=== PATIENT | female | born 1950 | race Caucasian/White ===

== ENCOUNTER 2020-08-18 06:17 | Outpatient (REF) | payer MEDICARE, BC, SELFPAY ==
[2020-08-18 07:25] LABS: Alanine Aminotransferase 11 U/L (0-31); Albumin Level 4.3 g/dL (3.5-5.0); Alkaline Phosphatase 54 U/L (39-117); Anion Gap 13 (12-20); Aspartate Amino Transferase 14 U/L (5-31); Bilirubin Total 0.3 mg/dL (0.0-1.0); Blood Urea Nitrogen 19 mg/dL (9-16); Calcium 9.6 mg/dL (8.4-10.2); Carbon Dioxide 26 mmol/L (22-29); Chloride 108 mmol/L (96-108); Cholesterol 186 mg/dL; Estimated Glomerular Filt Rate 48; Glucose Fasting 172 mg/dL (60-99); HDL Cholesterol 51 mg/dL; LDL Cholesterol Calculated 97 mg/dl; Potassium 4.8 mmol/l (3.3-5.1); Sodium 142 mmol/L (135-145); Total Protein 7.7 g/dL (6.5-8.0); Triglycerides 190 mg/dL
[2020-08-18 07:38] LABS: Vitamin D 25-OH Total 35.1 ng/mL (>30)
[2020-08-18 08:10] LABS: Folate 7.2 ng/mL (> or = 4.0); Vitamin B12 303 pg/mL (200-900)
== END 2020-08-18 06:18 | disposition home or self-care (01) ==
LOC: HO.LAB 06:17
PROVIDERS: Visit Provider Internal Medicine
DX: E11.65 Type 2 diabetes mellitus with hyperglycemia (principal); E78.00 Pure hypercholesterolemia, unspecified; E66.9 Obesity, unspecified; F31.9 Bipolar disorder, unspecified; M71.22 Synovial cyst of popliteal space [Baker], left knee; Z86.711 Personal history of pulmonary embolism
CPT/HCPCS: 36415; 80053; 80061; 82306; 82607; 82746

== ENCOUNTER 2020-11-18 06:27 | Outpatient (REF) | payer MEDICARE, BC, SELFPAY ==
[2020-11-18 07:00] LABS: MANUAL DIFF FLAG NO
[2020-11-18 07:12] LABS: Basophils Absolute Auto 0.1 X10*3/uL (0.0-0.2); Basophils Percent Auto 0.9 % (0-2); Eosinophils Absolute Auto 0.2 X10*3/uL (0.0-0.4); Eosinophils Percent Auto 3.5 % (0-4); Hematocrit 38.6 % (37-47); Hemoglobin 11.9 g/dl (12.0-16.0); Imm Gran Abs Auto 0.03 X10*3/uL (0.00-0.03); Imm Gran Pct Auto 0.5 % (0.0-0.4); Lymphocytes Absolute Auto 2.2 X10*3/uL (1.2-4.9); Lymphocytes Percent Auto 32.9 % (20-40); Mean Corpuscular HGB Conc 30.8 g/dl (31.0-35.0); Mean Corpuscular Hemoglobin 29.5 pg (27.0-33.0); Mean Corpuscular Volume 95.5 fL (80-98); Mean Platelet Volume 10.6 fL (9.4-12.3); Monocytes Absolute Auto 0.5 X10*3/uL (0.1-1.2); Monocytes Percent Auto 7.4 % (2-11); Neutrophils Absolute Auto 3.6 X10*3/uL (2.0-8.3); Neutrophils Percent Auto 54.8 % (45-73); Platelet Count 299 X10*3/uL (160-400); Red Blood Count 4.04 X10*6/uL (4.20-5.50); Red Cell Distribution Width 14.1 % (11.0-16.0); White Blood Count 6.6 X10*3/uL (4.8-10.8)
[2020-11-18 07:35] LABS: Estimated Average Glucose 151 mg/dL; Hemoglobin A1c % 6.9 %
[2020-11-18 07:41] LABS: Alanine Aminotransferase 12 U/L (0-31); Albumin Level 4.3 g/dL (3.5-5.0); Alkaline Phosphatase 53 U/L (39-117); Anion Gap 12 (12-20); Aspartate Amino Transferase 15 U/L (5-31); Bilirubin Total 0.4 mg/dL (0.0-1.0); Blood Urea Nitrogen 18 mg/dL (9-16); Calcium 9.6 mg/dL (8.4-10.2); Carbon Dioxide 28 mmol/L (22-29); Chloride 106 mmol/L (96-108); Cholesterol 160 mg/dL; Estimated Glomerular Filt Rate 48; Glucose Random 139 mg/dL (60-115); HDL Cholesterol 45 mg/dL; LDL Cholesterol Calculated 76 mg/dl; Potassium 5.2 mmol/L (3.3-5.1); Sodium 141 mmol/L (135-145); Total Protein 7.6 g/dL (6.5-8.0); Triglycerides 197 mg/dL
[2020-11-18 08:04] LABS: Free T4 (Free Thyroxine) 0.85 ng/dL (0.71-1.85); Thyroid Stimulating Hormone 1.89 uIU/mL (0.32-4.0); Vitamin D 25-OH Total 28.9 ng/mL (>30)
[2020-11-18 10:02] LABS: Creatinine Urine 155.94 mg/dL; Microalbum/Creatinine Ratio Ur 5.1 ug/mg cr
[2020-11-18 11:04] LABS: Folate 8.1 ng/mL (> or = 4.0); Vitamin B12 292 pg/mL (200-900)
== END 2020-11-18 06:28 | disposition home or self-care (01) ==
LOC: HO.LAB 06:27
PROVIDERS: PCP Internal Medicine; Visit Provider Internal Medicine
DX: E11.65 Type 2 diabetes mellitus with hyperglycemia (principal); E78.00 Pure hypercholesterolemia, unspecified; Z86.711 Personal history of pulmonary embolism
CPT/HCPCS: 36415; 80053; 80061; 82043; 82306; 82607; 82746; 83036; 84439; 84443; 85025

== ENCOUNTER 2021-02-22 06:28 | Outpatient (REF) | payer MEDICARE, BC, SELFPAY ==
[2021-02-22 07:05] LABS: MANUAL DIFF FLAG NO
[2021-02-22 07:12] LABS: Basophils Percent Auto 0.6 % (0-2); Eosinophils Absolute Auto 0.3 X10*3/uL (0.0-0.4); Eosinophils Percent Auto 4.7 % (0-4); Hematocrit 38.8 % (37-47); Hemoglobin 12.2 g/dl (12.0-16.0); Imm Gran Abs Auto 0.07 X10*3/uL (0.00-0.03); Immature Retic Fraction 20.2 % (3.0-15.9); Lymphocytes Absolute Auto 2.1 X10*3/uL (1.2-4.9); Lymphocytes Percent Auto 28.6 % (20-40); Mean Corpuscular HGB Conc 31.4 g/dl (31.0-35.0); Mean Corpuscular Volume 95.6 fL (80-98); Mean Platelet Volume 10.4 fL (9.4-12.3); Monocytes Absolute Auto 0.5 X10*3/uL (0.1-1.2); Monocytes Percent Auto 6.9 % (2-11); Neutrophils Absolute Auto 4.2 X10*3/uL (2.0-8.3); Neutrophils Percent Auto 58.2 % (45-73); Platelet Count 345 X10*3/uL (160-400); Red Blood Count 4.06 X10*6/uL (4.20-5.50); Red Cell Distribution Width 13.8 % (11.0-16.0); Retic HGB Equivalent 32.6 pg (30.0-35.0); Reticulocyte Percent 1.9 % (0.5-1.8); Reticulocytes Absolute 0.076 X10*6/uL (0.026-0.095); White Blood Count 7.2 X10*3/uL (4.8-10.8)
[2021-02-22 07:35] LABS: Creatinine Urine 87.84 mg/dL
[2021-02-22 07:39] LABS: Alanine Aminotransferase 8 U/L (0-31); Alkaline Phosphatase 51 U/L (39-117); Anion Gap 10 (12-20); Aspartate Amino Transferase 12 U/L (5-31); Bilirubin Total 0.3 mg/dL (0.0-1.0); Blood Urea Nitrogen 14 mg/dL (9-16); Calcium 9.7 mg/dL (8.4-10.2); Carbon Dioxide 28 mmol/L (22-29); Chloride 109 mmol/L (96-108); Estimated Glomerular Filt Rate 53; Glucose Random 138 mg/dL (60-115); Iron 72 mcg/dL (30-160); Percent Iron Saturation 20 % (15-50); Potassium 5.1 mmol/L (3.3-5.1); Sodium 142 mmol/L (135-145); Total Iron Binding Capacity 364 mcg/dL (228-428); Total Protein 7.4 g/dL (6.5-8.0); Unsaturated Iron Binding 292 ug/dL
[2021-02-22 08:05] LABS: Ferritin 157 ng/mL (10-250)
[2021-02-22 08:22] LABS: Folate 8.8 ng/mL (> or = 4.0); Vitamin B12 682 pg/mL (200-900)
== END 2021-02-22 06:29 | disposition home or self-care (01) ==
LOC: HO.LAB 06:28
PROVIDERS: PCP Internal Medicine; Visit Provider Internal Medicine
DX: D64.9 Anemia, unspecified (principal); E11.65 Type 2 diabetes mellitus with hyperglycemia
CPT/HCPCS: 36415; 80053; 82607; 82728; 82746; 83540; 85025; 85045

== ENCOUNTER 2022-01-06 06:24 | Outpatient (REF) | payer MEDICARE, BC, SELFPAY ==
[2022-01-06 06:38] LABS: MANUAL DIFF FLAG NO
[2022-01-06 07:21] LABS: Basophils Percent Auto 0.6 % (0-2); Eosinophils Absolute Auto 0.2 X10*3/uL (0.0-0.4); Eosinophils Percent Auto 2.7 % (0-4); Hematocrit 37.7 % (37.0-47.0); Hemoglobin 11.9 g/dl (12.0-16.0); Imm Gran Abs Auto 0.04 X10*3/uL (0.00-0.03); Imm Gran Pct Auto 0.6 % (0.0-0.4); Lymphocytes Absolute Auto 2.1 X10*3/uL (1.2-4.9); Lymphocytes Percent Auto 31.3 % (20-40); Mean Corpuscular HGB Conc 31.6 g/dl (31.0-35.0); Mean Corpuscular Hemoglobin 30.1 pg (27.0-33.0); Mean Corpuscular Volume 95.2 fL (80.0-98.0); Monocytes Absolute Auto 0.5 X10*3/uL (0.1-1.2); Monocytes Percent Auto 7.6 % (2-11); Neutrophils Absolute Auto 3.8 x10*3/uL (2.0-8.3); Neutrophils Percent Auto 57.2 % (45-73); Platelet Count 277 X10*3/uL (160-400); Red Blood Count 3.96 X10*6/uL (4.20-5.50); Red Cell Distribution Width 14.4 % (11.0-16.0); White Blood Count 6.6 X10*3/uL (4.8-10.8)
[2022-01-06 07:48] LABS: Estimated Average Glucose 151 mg/dL; Hemoglobin A1c % 6.9 %
[2022-01-06 08:01] LABS: Alanine Aminotransferase 16 U/L (0-31); Albumin Level 3.9 g/dL (3.5-5.0); Alkaline Phosphatase 49 U/L (39-117); Anion Gap 12 (12-20); Aspartate Amino Transferase 20 U/L (5-31); Bilirubin Total 0.3 mg/dL (0.0-1.0); Blood Urea Nitrogen 13 mg/dL (9-16); Calcium 9.4 mg/dL (8.4-10.2); Carbon Dioxide 25 mmol/L (22-29); Chloride 107 mmol/L (96-108); Cholesterol 167 mg/dL; Estimated Glomerular Filt Rate 50; Glucose Random 124 mg/dL (60-115); HDL Cholesterol 45 mg/dL; LDL Cholesterol Calculated 84 mg/dl; Potassium 5.1 mmol/L (3.3-5.1); Sodium 139 mmol/L (135-145); Total Protein 7.1 g/dL (6.5-8.0); Triglycerides 192 mg/dL
[2022-01-06 08:10] LABS: Free T4 (Free Thyroxine) 0.82 ng/dL (0.71-1.85); Thyroid Stimulating Hormone 2.97 uIU/mL (0.32-4.0)
[2022-01-06 09:06] LABS: Folate 5.4 ng/mL (> or = 4.0); Vitamin B12 421 pg/mL (200-900)
[2022-01-06 10:36] LABS: Creatinine Urine 99.14 mg/dL; Microalbumin Urine < 5.0 mg/L
== END 2022-01-06 06:25 | disposition home or self-care (01) ==
LOC: HO.LAB 06:24
PROVIDERS: PCP Internal Medicine; Visit Provider Internal Medicine
DX: E11.65 Type 2 diabetes mellitus with hyperglycemia (principal); E78.00 Pure hypercholesterolemia, unspecified
CPT/HCPCS: 36415; 80053; 80061; 82043; 82306; 82607; 82746; 83036; 84439; 84443; 85025

== ENCOUNTER 2023-01-20 07:06 | Outpatient (REF) | payer MEDICARE, BC, SELFPAY ==
[2023-01-20 07:19] LABS: MANUAL DIFF FLAG NO
[2023-01-20 07:39] LABS: Basophils Percent Auto 0.5 % (0-2); Eosinophils Absolute Auto 0.2 X10*3/uL (0.0-0.4); Eosinophils Percent Auto 2.5 % (0-4); Hemoglobin 12.3 g/dl (12.0-16.0); Imm Gran Abs Auto 0.05 X10*3/uL (0.00-0.03); Imm Gran Pct Auto 0.6 % (0.0-0.4); Lymphocytes Absolute Auto 1.7 X10*3/uL (1.2-4.9); Lymphocytes Percent Auto 20.8 % (20-40); Mean Corpuscular HGB Conc 31.5 g/dl (31.0-35.0); Mean Corpuscular Hemoglobin 30.1 pg (27.0-33.0); Mean Corpuscular Volume 95.6 fL (80.0-98.0); Mean Platelet Volume 10.2 fL (9.4-12.3); Monocytes Absolute Auto 0.5 X10*3/uL (0.1-1.2); Monocytes Percent Auto 5.9 % (2-11); Neutrophils Absolute Auto 5.6 x10*3/uL (2.0-8.3); Neutrophils Percent Auto 69.7 % (45-73); Platelet Count 305 X10*3/uL (160-400); Red Blood Count 4.08 X10*6/uL (4.20-5.50); Red Cell Distribution Width 13.9 % (11.0-16.0)
[2023-01-20 07:47] LABS: Estimated Average Glucose 137 mg/dL; Hemoglobin A1c % 6.4 %
[2023-01-20 08:26] LABS: Alanine Aminotransferase 10 U/L (0-31); Albumin Level 3.9 g/dL (3.5-5.0); Alkaline Phosphatase 50 U/L (39-117); Anion Gap 13 (12-20); Aspartate Amino Transferase 15 U/L (5-31); Bilirubin Total 0.4 mg/dL (0.0-1.0); Blood Urea Nitrogen 12 mg/dL (9-16); Calcium 9.6 mg/dL (8.4-10.2); Carbon Dioxide 24 mmol/L (22-29); Chloride 107 mmol/L (96-108); Cholesterol 149 mg/dL; Estimated Glomerular Filt Rate 51; Glucose Random 136 mg/dL (60-115); HDL Cholesterol 54 mg/dL; LDL Cholesterol Calculated 66 mg/dl; Potassium 4.2 mmol/L (3.3-5.1); Sodium 140 mmol/L (135-145); Total Protein 7.3 g/dL (6.5-8.0); Triglycerides 146 mg/dL
== END 2023-01-20 07:07 | disposition home or self-care (01) ==
LOC: HO.LAB 07:06
PROVIDERS: Visit Provider Nurse Practitioner Family
DX: E11.65 Type 2 diabetes mellitus with hyperglycemia (principal); E78.00 Pure hypercholesterolemia, unspecified; Z13.29 Encounter for screening for other suspected endocrine disorder
CPT/HCPCS: 36415; 80053; 80061; 83036; 84443; 85025

== ENCOUNTER 2023-03-07 10:51 | Outpatient (AMB) | payer MEDICARE, BC, SELFPAY ==
[2023-03-07 11:00] VITALS: BP 128/72; PULSE 87; O2SAT 98; BMI 26.9
--- NOTE | 2023-03-07 11:00 | MHC.PC.OV ---
Vital Signs 03/07/23 11:00 Height 5 ft 4 in Weight 157 lb BMI 26.9 BP 128/72 Blood Pressure Location Lt brachial Position Sitting Pulse 87 Pulse Source Pulse Oximeter Pulse Oximetry (%) 98 Oxygen Delivery Method Room Air Intake Visit Reasons: DM,pulmonary ebolism, Bipolar Allergies levomilnacipran [Fetzima] Allergy (Unknown, Verified 03/07/23 11:00) Unknown sertraline [Zoloft] Allergy (Unknown, Verified 03/07/23 11:00) Unknown vortioxetine [From Brintellix] Allergy (Unknown, Verified 03/07/23 11:00) Unknown Medication List - Last Reconciled 03/07/23 by Josse Herndon MD apixaban (Eliquis) 5 mg PO BID cholecalciferol (vitamin D3) 25 mcg PO DAILY enoxaparin (Lovenox) 80 mg (0.8 mL) subcut BID 5 days fenofibrate 160 mg PO DAILY 90 days lisinopril 2.5 mg PO DAILY lurasidone (Latuda) 60 mg PO DAILY metformin 500 mg PO BID nystatin 1 appl topical BID simvastatin 40 mg PO BEDTIME vilazodone (Viibryd) 60 mg PO DAILY Tobacco use date assessed: 11/28/22 Fall risk assessment: No Falls in past year Last assessed Fall Risk: 03/07/23 Dental Screening Dental Screen Date: 03/07/23 Did you have a dental visit in the last 12 months?: Yes Did you have a dental problem in the last 6 months where you did not have access to dental care?: No Was dental information given to patient?: Patient has dentist HPI DM,pulmonary ebolism, Bipolar HPI Details 79-year-old overweight female with diabetes mellitus hypercholesterolemia bipolar disorder history of pulmonary embolism coming in for follow-up. Last seen in July 2022. Mammogram is due, colonoscopy is due bone density is due. November was seen by the nurse practitioner as a follow-up from hospitalization accidentally taking too much Klonopin patient was found to be lethargic with an empty bottle of clonazepam. Patient was being followed up by Psychiatry who has taken off her Abilify question of MRI showing tiny frontal subarachnoid hemorrhage INR was super therapy patient was prescribed Keppra patient is no longer on Klonopin and has been started on Latuda Coumadin change to direct acting oral anticoagulant January 2023 last blood work [facility] Medical History (Updated 03/07/23 @ 11:50 by Josse Herndon MD) Bipolar disorder Cholelithiasis History of pulmonary embolism Hypercholesterolemia Type 2 diabetes mellitus with hyperglycemia Surgical History History of section Family History (Updated 03/07/23 @ 11:01 by Lucita Mann [facility]) Father Lung cancer Mother Chronic mental illness Dementia Social History (Updated 04/19/22 @ 11:53 by Josse Herndon MD) Housing: House Alcohol intake: former Patient Tobacco Use Status: Former Tobacco user Tobacco use type: Cigarette Years Smoked: stopped 30 years old e-Cigarette/Vaping Use: Never Used Second Hand Smoke Exposure: No Current occupational status: retired Cognitive needs: No Hearing needs: No Vision needs: Yes Questionnaire PHQ-9 Over the last 2 weeks, how often have you been bothered by any of the following problems? 1. Little interest or pleasure in doing things: several days 2. Feeling down, depressed, or hopeless: several days (Takes Latuda and Viibryd) 3. Trouble falling or staying asleep, or sleeping too much: several days 4. Feeling tired or having little energy: several days 5. Poor appetite or overeating: not at all 6. Feeling bad about yourself - or that you are a failure or have let yourself or your family down: not at all 7. Trouble concentrating on things, such as reading the newspaper or watching television: not at all 8. Moving or speaking so slowly that other people could have noticed. Or the opposite - being so fidgety or restless that you have been moving around a lot more than usual: not at all 9. Thoughts that you would be better off or of hurting yourself in some way: not at all Total score: 4 Depression Screening Interpretation: Positive Source: Developed by Drs. Tu Hdz, Ruth Wolf, Connor Bennett and colleagues, with an educational nighat from [employer]. Thrive Questionnaire Date Thrive assessed: 03/07/23 I am a: Patient What is your living situation today?: I have a steady place to live Within the past 12 months, did the food you bought not last and you didn't have the money to get more?: Never true Within the past 12 months, did you worry whether your food would run out before you got money to buy more?: Never true Do you have trouble paying for medicines?: No Do you have trouble getting transportation to medical appointments?: No Do you have trouble paying your heating and electricity bill?: No Do you have trouble taking care of your child, family member or friend?: No Do you have trouble with day-to-day activities such as bathing, preparing meals, shopping, managing finances, etc.?: No Are you currently unemployed and looking for a job?: No Are you interested in more education?: No Currently or been in a relationship where the following occur: no concerns reported AUDIT C Alcohol Use Questionnaire (AUDIT-C) 1. How often do you have a drink containing alcohol?: Never 3. How often do you have six or more drinks on one occasion?: Never Total Score: 0 TRAE-7 AMB Questionnaire TRAE-7 Date TRAE - 7 assessed: 11/28/22 Source: Developed by Drs. Tu Hdz, Ruth Wolf, Connor Bennett and colleagues, with an educational nighat from [employer]. Physical exam (Primary Care) Vital Signs: Last Vital Signs Pulse 87 03/07/23 11:00 BP 128/72 03/07/23 11:00 Pulse Ox 98 03/07/23 11:00 Oxygen Delivery Method Room Air 03/07/23 11:00 BMI result Body Mass Index 26.9 Tobacco/Smoking Status: Tobacco use Status Tobacco use date assessed 11/28/22 03/07/23 11:04 Patient Tobacco Use Status Former Tobacco user 03/07/23 11:04 Tobacco use type Cigarette 03/07/23 11:04 e-Cigarette/Vaping Use Never Used 03/07/23 11:04 PHQ-9: PHQ-9 Score PHQ-9: Total score 4 03/07/23 11:43 Depression Screening Interpretation: Positive Thrive Assessment: Date of Thrive Assessment Date Thrive assessed 03/07/23 03/07/23 11:04 Currently or been in a relationship where the following occur: no concerns reported Const General: alert; No acute distress Eyes Conjunctivae: conjunctivae normal Resp Auscultation: clear to auscultation bilaterally Cardio Rate: regular rate Rhythm: regular rhythm GI Inspection: Yes normal to inspection Extrem General: Yes normal to inspection and No edema Assessment and Plan Assessment & Plan (1) Colon cancer screening: Comment: November 2014 colonoscopy Code(s): Z12.11 - Encounter for screening for malignant neoplasm of colon Plan: Reminded about colonoscopy (2) Type 2 diabetes mellitus with hyperglycemia: Comment: Dr. Hahn. Dr. Mitchell Code(s): E11.65 - Type 2 diabetes mellitus with hyperglycemia Qualifiers: Diabetes mellitus adjunct faculty for medical terminology insulin use: without [facility] use Qualified Code(s): E11.65 - Type 2 diabetes mellitus with hyperglycemia Plan: Decrease the amount of carbohydrate intake, pasta, bread, rice and potatoes are all sugar and that is aside from all the sweet stuff, remember that fruits are good but they are Sweet also. Hemoglobin A1c goal of less than 7.0 patient is on metformin 500 mg twice a day (3) Hypercholesterolemia: Code(s): E78.00 - Pure hypercholesterolemia, unspecified Plan: Avoid fried foods, chicken skin, eggs, butter margarine, pastries and meat. Be it pork or beef they have a lot of cholesterol January 2023 last blood work LDL goal of less than 100 and triglyceride of less than 150 patient is on fenofibrate 160 mg once a day and simvastatin 40 mg once a day (4) Bipolar disorder: Comment: gurpreet Martinez Q 2 weeks Code(s): F31.9 - Bipolar disorder, unspecified Qualifiers: Active/Remission status: currently active Current bipolar episode type: depressed Current episode severity: moderate Qualified Code(s): F31.32 - Bipolar disorder, current episode depressed, moderate Plan: Continue with counseling and therapy (5) History of pulmonary embolism: Comment: With left tibial vein thrombosis December 2016 Coumadin. 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 2017 Code(s): Z86.711 - Personal history of pulmonary embolism Plan: Continue with Eliquis anticoagulate Orders: Orders XR DEXA axial skeleton Today M81.0 - Age-related osteoporosis without current pathological fracture Medications: Discontinued enoxaparin (Lovenox) Discontinued Reason: Doctor's Order 80 mg (0.8 mL) subcut BID 5 days 8 mL 1RF Z86.711 - Personal history of pulmonary embolism Coding Level of Care Code Est Pt Level 4 (43154) Diagnoses Colon cancer screening Z12.11 Type 2 diabetes mellitus with hyperglycemia E11.65 Diabetes mellitus adjunct faculty for medical terminology insulin use: without adjunct faculty for medical terminology use Hypercholesterolemia E78.00 Bipolar disorder F31.32 Active/Remission status: currently active Current bipolar episode type: depressed Current episode severity: moderate History of pulmonary embolism Z86.711
== END 2023-03-07 12:39 | disposition home or self-care (01) ==
PROVIDERS: PCP Internal Medicine; Visit Provider Internal Medicine
DX: E11.65 Type 2 diabetes mellitus with hyperglycemia (principal); F31.32 Bipolar disorder, current episode depressed, moderate; Z86.711 Personal history of pulmonary embolism; E78.00 Pure hypercholesterolemia, unspecified
CPT/HCPCS: 99214

== ENCOUNTER 2023-03-21 08:02 | Outpatient (REF) | payer MEDICARE, BC, SELFPAY ==
--- NOTE | ~2023-03-21 | MM_ITS ---
EXAMINATION: BONE DENSITOMETRY CLINICAL INDICATION: Age-related osteoporosis without current pathological fracture. COMPARISON: This is the patient's baseline examination. TECHNIQUE: Using a [employer] DXA System (software version: 13.1) manufactured by [employer], dual-energy x-ray absorptiometry was performed of the lumbar spine and left hip. The images are of good technical quality. Summary results are attached. FINDINGS: AP SPINE L1-L4: BMD 1.248 g/cm2, Z-score 2.1, T-score 0.6, normal. LEFT FEMUR, NECK: BMD 0.822 g/cm2, Z-score 0.2, T-score -1.6, osteopenia. LEFT FEMUR, TOTAL: BMD 0.965 g/cm2, Z-score 1.2, T-score -0.3, normal. IDENTIFIED RISK FACTORS: Height loss, family history (parental hip fracture), menopause. HISTORY OF FRACTURE: None listed. MEDICATIONS: Vitamin D. MM/XR DEXA axial skeleton IMPRESSION: 1. DIAGNOSIS: Osteopenia based on the lowest T-score value of -1.6 in the femoral neck applying World Health Organization criteria. 2. 10-YEAR FRACTURE RISK PREDICTION, FRAX: Major osteoporotic fracture (clinical spine, forearm, hip or shoulder) 17.6%. Hip fracture 7.2%. 3. Treatment Recommendations: NOF guidelines recommend consideration for treatment in postmenopausal women and men age 50 and older presenting with the following: -A hip or vertebral (clinical or morphometric) fracture. -T-score less than or equal to -2.5 at the femoral neck or spine after appropriate evaluation to exclude secondary causes. -Low bone mass at the hip or spine and a 10-year fracture probability by FRAX of greater than or equal to 3% for hip fracture or greater than or equal to 20% for major osteoporotic fracture based on the [place] adapted WHO algorithm. 4. Other Recommendations: All treatment decisions require clinical judgment and consideration of individual patient factors, including patient preferences, comorbidities, previous drug use, risk factors not captured in the FRAX model (e.g. frailty, falls, vitamin D deficiency, increased bone turnover, interval significant decline in bone density) and possible under or overestimation of fracture risk by FRAX. Additional medical evaluation for secondary cause of low bone mineral density may be appropriate. FUTURE SCAN RECOMMENDATION: People with diagnosed cases of osteoporosis or at high risk for fracture should have regular bone mineral density tests. For patients eligible for Medicare, routine testing is allowed once every 2 years. The testing frequency can be increased to one year for patients who have rapidly progressing disease, those who are receiving or discontinuing medical therapy to restore bone mass, or have additional risk factors.
== END 2023-03-21 08:03 | disposition home or self-care (01) ==
LOC: HO.MAMMO 08:02
PROVIDERS: Visit Provider Internal Medicine
DX: M81.0 Age-related osteoporosis without current pathological fracture (principal)
CPT/HCPCS: 77080

== ENCOUNTER → 2023-03-21 08:15 | Outpatient (BNV) | payer MEDICARE, BC, SELFPAY | PROVIDERS: Visit Provider Radiology Diagnostic Radiology | DX: M85.052 Fibrous dysplasia (monostotic), left thigh (principal) | CPT/HCPCS: 77080 ==

== ENCOUNTER 2023-05-01 10:43 | Outpatient (AMB) | payer MEDICARE, BC, SELFPAY ==
[2023-05-01 11:12] VITALS: BP 132/76; PULSE 92; O2SAT 96; BMI 26.8
--- NOTE | 2023-05-01 11:12 | MHC.PC.OV ---
Vital Signs 05/01/23 11:12 Height 5 ft 4 in Weight 156 lb BMI 26.8 BP 132/76 Blood Pressure Location Lt brachial Position Sitting Pulse 92 Pulse Source Pulse Oximeter Pulse Oximetry (%) 96 Oxygen Delivery Method Room Air Intake Visit Reasons: PE Allergies levomilnacipran [Fetzima] Allergy (Unknown, Verified 05/01/23 11:12) Unknown sertraline [Zoloft] Allergy (Unknown, Verified 05/01/23 11:12) Unknown vortioxetine [From Brintellix] Allergy (Unknown, Verified 05/01/23 11:12) Unknown Medication List - Last Reconciled 05/01/23 by Josse Herndon MD apixaban (Eliquis) 5 mg PO BID cholecalciferol (vitamin D3) 25 mcg PO DAILY fenofibrate 160 mg PO DAILY 90 days lisinopril 2.5 mg PO DAILY metformin 500 mg PO BID nystatin 1 appl topical BID simvastatin 40 mg PO BEDTIME vilazodone (Viibryd) 60 mg PO DAILY Tobacco use date assessed: 11/28/22 Fall risk assessment: No Falls in past year Last assessed Fall Risk: 05/01/23 Dental Screening Dental Screen Date: 05/01/23 Did you have a dental visit in the last 12 months?: Yes Did you have a dental problem in the last 6 months where you did not have access to dental care?: No Was dental information given to patient?: Patient has dentist HPI PE HPI Details 72-year-old overweight female with controlled diabetes mellitus hypercholesterolemia bipolar disorder and history of pulmonary embolism last seen in March 2023. Patient is here for physical exam. Mammograms up-to-date colonoscopy is due. Bone density is up-to-date. vertigo, no congestion 4 months. [facility] Medical History (Updated 05/01/23 @ 11:44 by Josse Herndon MD) Cholelithiasis Type 2 diabetes mellitus with hyperglycemia Hypercholesterolemia Bipolar disorder History of pulmonary embolism Surgical History History of section Family History (Updated 03/07/23 @ 11:01 by Lucita Mann CMA) Father Lung cancer Mother Chronic mental illness Dementia Social History (Updated 04/19/22 @ 11:53 by Josse Herndon MD) Housing: House Alcohol intake: former Patient Tobacco Use Status: Former Tobacco user Tobacco use type: Cigarette Years Smoked: stopped 30 years old e-Cigarette/Vaping Use: Never Used Second Hand Smoke Exposure: No Current occupational status: retired Cognitive needs: No Hearing needs: No Vision needs: Yes Questionnaire PHQ-9 Over the last 2 weeks, how often have you been bothered by any of the following problems? 1. Little interest or pleasure in doing things: several days 2. Feeling down, depressed, or hopeless: several days (Takes Latuda and Viibryd) 3. Trouble falling or staying asleep, or sleeping too much: several days 4. Feeling tired or having little energy: several days 5. Poor appetite or overeating: not at all 6. Feeling bad about yourself - or that you are a failure or have let yourself or your family down: not at all 7. Trouble concentrating on things, such as reading the newspaper or watching television: not at all 8. Moving or speaking so slowly that other people could have noticed. Or the opposite - being so fidgety or restless that you have been moving around a lot more than usual: not at all 9. Thoughts that you would be better off or of hurting yourself in some way: not at all Total score: 4 Depression Screening Interpretation: Positive Source: Developed by Drs. Tu Hdz, Ruth Wolf, Connor Bennett and colleagues, with an educational nighat from [employer]. Thrive Questionnaire Date Thrive assessed: 03/07/23 AUDIT C Alcohol Use Questionnaire (AUDIT-C) 1. How often do you have a drink containing alcohol?: Never 3. How often do you have six or more drinks on one occasion?: Never Total Score: 0 TRAE-7 AMB Questionnaire TRAE-7 Date TRAE - 7 assessed: 11/28/22 Source: Developed by Ruth Mcguire Kurt Kroenke and colleagues, with an educational nighat from [employer]. Review of Systems Const Denies poor appetite and Denies weakness Eyes Denies no additional complaints ENT Reports Normal hearing present, Denies dizziness, Denies nasal congestion, Denies tinnitus and Denies sore throat Card Denies chest pain, Denies syncope, Denies rapid heart rate and Denies dyspnea Resp Denies cough and Denies dyspnea GI Denies change in stool character, Reports constipation, Denies diarrhea, Denies nausea and Denies vomiting Denies urinary frequency, Denies difficulty voiding and Denies dysuria Neuro Reports Normal hearing present, Denies confusion, Denies dizziness, Denies syncope and Denies weakness Psych Denies confusion Physical exam (Primary Care) Vital Signs: Last Vital Signs Pulse 92 05/01/23 11:12 BP 132/76 05/01/23 11:12 Pulse Ox 96 05/01/23 11:12 Oxygen Delivery Method Room Air 05/01/23 11:12 BMI result Body Mass Index 26.8 Tobacco/Smoking Status: Tobacco use Status Tobacco use date assessed 11/28/22 05/01/23 11:13 Patient Tobacco Use Status Former Tobacco user 05/01/23 11:13 Tobacco use type Cigarette 05/01/23 11:13 e-Cigarette/Vaping Use Never Used 05/01/23 11:13 PHQ-9: PHQ-9 Score PHQ-9: Total score 4 05/01/23 11:34 Depression Screening Interpretation: Positive Thrive Assessment: Date of Thrive Assessment Date Thrive assessed 03/07/23 05/01/23 11:13 Const General: alert and awake; No confusion Orientation/consciousness: No confusion HENMT Head: Yes normocephalic Ears: external ears normal and TM's normal bilaterally Face and sinus: Yes normal facial exam Mouth: moist mucous membranes Throat: Yes tonsils normal Eyes Conjunctivae: conjunctivae normal Pupils: Equal, round and reactive pupils present and Pupil accommodation reflex normal Direct Ophthalmoscopy: normal light reflex Neck Neck: No lymphadenopathy Thyroid: Thyroid normal Chest Chest palpation & inspection: normal inspection of the chest Resp Effort & Inspection: normal respiratory effort and no audible wheezes Auscultation: clear to auscultation bilaterally, no crackles, no wheezes and lung sounds not diminished Cardio Rate: regular rate Rhythm: regular rhythm Peripheral pulses: radial pulses present and dorsalis pedis present GI Other: colon test advsied Palpation (GI): no masses Auscultation: normal bowel sounds and normoactive bowel sounds Rectal Exam - Female: deferred Skin Other: pedal pulses is good pin prick N General skin exam: no rashes or lesions noted Rashes: no rashes Neuro General: deep tendon reflexes 2+ bilaterally and No confusion Cranial nerves: Yes Equal, round and reactive pupils present, Yes Midline tongue present, Yes Normal hearing present and Yes Ability to bilaterally elevate shoulders present Cognition (Neuro): normal cognition Gait exam (Neuro): Normal gait present Motor exam (neuro): 5/5 motor strength present throughout Deep tendon reflexes (DTR's): Right brachioradialis reflex intensity grade: 2+, Left brachioradialis reflex intensity grade: 2+, Right patellar reflex intensity grade: 2+ and Left patellar reflex intensity grade: 2+ Extrem General: No edema Results AMB Hemoglobin A1c AMB Hemoglobin A1c 6.3 % Last Edit by Lucita Mann CMA on 05/01/23 11:35 Assessment and Plan Assessment & Plan (1) Annual physical exam: Code(s): Z00.00 - Encounter for general adult medical examination without abnormal findings (2) Overweight (BMI 25.0-29.9): Code(s): E66.3 - Overweight Plan: Continue with diet and exercise. (3) Type 2 diabetes mellitus with hyperglycemia: Comment: Dr. Hahn. Dr. Mitchell Code(s): E11.65 - Type 2 diabetes mellitus with hyperglycemia Qualifiers: Diabetes mellitus termite treater helper insulin use: without senior care use Qualified Code(s): E11.65 - Type 2 diabetes mellitus with hyperglycemia Plan: Decrease the amount of carbohydrate intake, pasta, bread, rice and potatoes are all sugar and that is aside from all the sweet stuff, remember that fruits are good but they are Sweet also. Hemoglobin A1c goal of less than 7.0 (4) Hypercholesterolemia: Code(s): E78.00 - Pure hypercholesterolemia, unspecified Plan: Avoid fried foods, chicken skin, eggs, butter margarine, pastries and meat. Be it pork or beef they have a lot of cholesterol LDL goal of less than 100 and triglyceride of less than 150 (5) Bipolar disorder: Comment: gurpreet Martinez Q 2 weeks Code(s): F31.9 - Bipolar disorder, unspecified Qualifiers: Active/Remission status: currently active Current bipolar episode type: depressed Current episode severity: moderate Qualified Code(s): F31.32 - Bipolar disorder, current episode depressed, moderate Plan: Continue with counseling and therapy (6) History of pulmonary embolism: Comment: With left tibial vein thrombosis December 2016 Coumadin. 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 2017 Code(s): Z86.711 - Personal history of pulmonary embolism Plan: Continue with anticoagulation (7) Colon cancer screening: Comment: November 2014 colonoscopy Code(s): Z12.11 - Encounter for screening for malignant neoplasm of colon (8) Vertigo: Code(s): R42 - Dizziness and giddiness Orders: Orders PT Evaluation and Treatment Today R42 - Dizziness and giddiness AMB Hemoglobin A1c Today Z13.9 - Encounter for screening, unspecified Referrals Gastroenterology Referral Z12.11 - Encounter for screening for malignant neoplasm of colon Coding Level of Care Code Est Pt Prev Care >65y(61956) Diagnoses Annual physical exam Z00.00 Overweight (BMI 25.0-29.9) E66.3 Type 2 diabetes mellitus with hyperglycemia, without long-term current use of insulin E11.65 Diabetes mellitus senior care insulin use: without senior care use Hypercholesterolemia E78.00 Bipolar affective disorder, currently depressed, moderate F31.32 Active/Remission status: currently active Current bipolar episode type: depressed Current episode severity: moderate History of pulmonary embolism Z86.711 Colon cancer screening Z12.11 Vertigo R42
== END 2023-05-01 11:49 | disposition home or self-care (01) ==
PROVIDERS: Visit Provider Internal Medicine
DX: Z00.00 Encounter for general adult medical examination without abnormal findings (principal); E11.65 Type 2 diabetes mellitus with hyperglycemia; Z86.711 Personal history of pulmonary embolism; F31.32 Bipolar disorder, current episode depressed, moderate; E66.3 Overweight; E78.00 Pure hypercholesterolemia, unspecified; R42 Dizziness and giddiness
CPT/HCPCS: 83036; 99397

== ENCOUNTER 2023-08-13 16:31 | Outpatient (AMB) | payer MEDICARE, BC, SELFPAY ==
[2023-08-13 16:32] VITALS: BP 120/82; BMI 27.6
--- NOTE | 2023-08-13 16:32 | A.OFFPC_ITS ---
Vital Signs 08/13/23 16:32 Height 5 ft 4 in Weight 161 lb BMI 27.6 BP 120/82 Blood Pressure Location Lt brachial Position Sitting Pulse Source Pulse Oximeter Oxygen Delivery Method Room Air Intake Visit Reasons: 3 month f/u Supervisor Compounding And Finishing Required: No Allergies levomilnacipran [Fetzima] Allergy (Unknown, Verified 08/13/23 16:33) Unknown sertraline [Zoloft] Allergy (Unknown, Verified 08/13/23 16:33) Unknown vortioxetine [From Brintellix] Allergy (Unknown, Verified 08/13/23 16:33) Unknown Tobacco use date assessed: 08/13/23 Fall risk assessment: No Falls in past year Last assessed Fall Risk: 08/13/23 Dental Screening Dental Screen Date: 08/13/23 Did you have a dental visit in the last 12 months?: Yes Did you have a dental problem in the last 6 months where you did not have access to dental care?: No Was dental information given to patient?: Patient has dentist HPI 3 month f/u HPI Details 73-year-old overweight female with diabe debbie mellitus hypercholesterolemia bipolar disorder history of pulmonary embolism last seen in April 2023. Mammogram is due this month reminded about colonoscopy [facility] Medical History (Updated 08/13/23 @ 16:53 by Josse Herndon MD) Age-related osteoporosis without current pathological fracture Cholelithiasis Type 2 diabetes mellitus with hyperglycemia Hypercholesterolemia Bipolar disorder History of pulmonary embolism Surgical History History of section Family History (Updated 03/07/23 @ 11:01 by Lucita Mann CMA) Father Lung cancer Mother Chronic mental illness Dementia Social History (Updated 04/19/22 @ 11:53 by Josse Herndon MD) Housing: House Alcohol intake: former Patient Tobacco Use Status: Former Tobacco user Tobacco use type: Cigarette Years Smoked: stopped 30 years old e-Cigarette/Vaping Use: Never Used Second Hand Smoke Exposure: No Current occupational status: retired Cognitive needs: No Hearing needs: No Vision needs: Yes Questionnaire PHQ-9 Over the last 2 weeks, how often have you been bothered by any of the following problems? 1. Little interest or pleasure in doing things: several days 2. Feeling down, depressed, or hopeless: several days (Takes Latuda and Viibryd) 3. Trouble falling or staying asleep, or sleeping too much: several days 4. Feeling tired or having little energy: several days 5. Poor appetite or overeating: not at all 6. Feeling bad about yourself - or that you are a failure or have let yourself or your family down: not at all 7. Trouble concentrating on things, such as reading the newspaper or watching television: not at all 8. Moving or speaking so slowly that other people could have noticed. Or the opposite - being so fidgety or restless that you have been moving around a lot more than usual: not at all 9. Thoughts that you would be better off or of hurting yourself in some way: not at all Total score: 4 Depression Screening Interpretation: Positive Depression Screening Done: Yes Source: Developed by Drs. uT Hdz, Ruth Wolf, Connor Bennett and colleagues, with an educational nighat from [employer]. Thrive Questionnaire Date Thrive assessed: 03/07/23 AUDIT C Alcohol Use Questionnaire (AUDIT-C) 1. How often do you have a drink containing alcohol?: Never 3. How often do you have six or more drinks on one occasion?: Never Total Score: 0 TRAE-7 AMB Questionnaire TRAE-7 Date TRAE - 7 assessed: 08/13/23 Source: Developed by Drs. Tu Hdz, Ruth Wolf, Connor Bennett and colleagues, with an educational nighat from [employer]. Physical exam (Primary Care) Vital Signs: Last Vital Signs BP 120/82 08/13/23 16:32 Oxygen Delivery Method Room Air 08/13/23 16:32 BMI result Body Mass Index 27.6 Tobacco/Smoking Status: Tobacco use Status Tobacco use date assessed 08/13/23 08/13/23 16:33 Patient Tobacco Use Status Former Tobacco user 08/13/23 16:33 Tobacco use type Cigarette 08/13/23 16:33 e-Cigarette/Vaping Use Never Used 08/13/23 16:33 PHQ-9: PHQ-9 Score PHQ-9: Total score 4 08/13/23 16:44 Depression Screening Interpretation: Positive Thrive Assessment: Date of Thrive Assessment Date Thrive assessed 08/02/23 01/08/24 16:33 Const General: alert; No acute distress Eyes Conjunctivae: conjunctivae normal Resp Auscultation: clear to auscultation bilaterally Cardio Rate: regular rate Rhythm: regular rhythm GI Inspection: Yes normal to inspection Extrem General: Yes normal to inspection and No edema Results AMB Hemoglobin A1c AMB Hemoglobin A1c 7.1 % Last Edit by TESS López on 08/13/23 16:44 Results Reviewed Results Reviewed: Laboratory Last Values Hgb A1c (Clinic) 7.1 % (4.0-6.0) H 08/13/23 15:48 Assessment and Plan Assessment & Plan (1) Type 2 diabetes mellitus with hyperglycemia: Comment: Dr. Hahn. Dr. Paula Lanier Code(s): E11.65 - Type 2 diabetes mellitus with hyperglycemia Qualifiers: Diabetes mellitus termite inspector insulin use: without termite inspector use Qualified Code(s): E11.65 - Type 2 diabetes mellitus with hyperglycemia Plan: Decrease the amount of carbohydrate intake, pasta, bread, rice and potatoes are all sugar and that is aside from all the sweet stuff, remember that fruits are good but they are Sweet also. Hemoglobin A1c goal of less than 7.0 presently on metformin 500 mg twice a day. Discussed about the elevated A1c to 7.1. Dec lined any new medication and will do better next time. (2) Hypercholesterolemia: Code(s): E78.00 - Pure hypercholesterolemia, unspecified Plan: Avoid fried foods, chicken skin, eggs, butter margarine, pastries and meat. Be it pork or beef they have a lot of cholesterol January 2023 last blood work LDL goal of less than 100 and triglyceride of less than 150 patient is on simvastatin 40 mg at bedtime (3) Bipolar disorder: Comment: gurpreet Martinez Q 2 weeks Code(s): F31.9 - Bipolar disorder, unspecified Qualifiers: Active/Remission status: currently active Current bipolar episode type: depressed Current episode severity: moderate Qualified Code(s): F31.32 - Bipolar disorder, current episode depressed, moderate Plan: Continued follow-up with counseling and therapy. Psychiatrist has retired, will refer for counseling. Will take over the medication for now. (4) Overweight (BMI 25.0-29.9): Code(s): E66.3 - Overweight Plan: Diet and exercise (5) Breast cancer screening by mammogram: Code(s): Z12.31 - Encounter for screening mammogram for malignant neoplasm of breast Plan: Patient is reminded about mammogram, planned (6) Colon cancer screening: Comment: November 2014 colonoscopy Code(s): Z12.11 - Encounter for screening for malignant neoplasm of colon Plan: Patient is reminded about colon cancer screening. will be seeing Dr. Richter. for colon test , hol Eliquis 2 days before the procedure Orders: Orders Hemoglobin A1c 3 Months Z86.711 - Personal history of pulmonary embolism AMB Hemoglobin A1c Today E11.65 - Type 2 diabetes mellitus with hyperglycemia Comprehensive Met. Panel 3 Months Z86.711 - Personal history of pulmonary embolism Complete Blood Count Auto Diff 3 Months Z86.711 - Personal history of pulmonary embolism Referrals Psychiatry Referral F31.32 - Bipolar disorder, current episode depressed, moderate Coding Level of Care Code Est Pt Level 4 (54694) Diagnoses Type 2 diabetes mellitus with hyperglycemia, without long-term current use of insulin E11.65 Diabetes mellitus retirement insulin use: without termite inspector use Hypercholesterolemia E78.00 Bipolar affective disorder, currently depressed, moderate F31.32 Active/Remission status: currently active Current bipolar episode type: depressed Current episode severity: moderate Overweight (BMI 25.0-29.9) E66.3 Breast cancer screening by mammogram Z12.31 Colon cancer screening Z12.11
== END 2023-08-13 17:07 | disposition home or self-care (01) ==
PROVIDERS: Visit Provider Internal Medicine
DX: E11.65 Type 2 diabetes mellitus with hyperglycemia (principal); E78.00 Pure hypercholesterolemia, unspecified; F31.32 Bipolar disorder, current episode depressed, moderate; E66.3 Overweight; Z12.31 Encounter for screening mammogram for malignant neoplasm of breast; Z12.11 Encounter for screening for malignant neoplasm of colon
CPT/HCPCS: 83036; 99214

== ENCOUNTER 2023-11-02 08:10 | Day surgery (SDC) | payer MEDICARE, BC, SELFPAY ==
--- NOTE | 2023-10-31 14:58 | P.CONAN_ITS ---
HPI - Anesthesia Eval Consult details Narrative: 73yo F for Colonoscopy Eliquis for hx PE PMFSH Active Problems Active Problems: All Active Problems (Updated 08/13/23 @ 16:53 by Josse Herndon MD) Osteopenia (Acute) Vertigo (Acute) Tinea corporis (Acute) Annual physical exam (Acute) Acute kidney injury (Acute) [place] toxicity (Acute) Overweight (BMI 25.0-29.9) (Acute) Breast cancer screening by mammogram (Acute) Colon cancer screening (Acute) Medicare annual wellness visit, initial (Acute) Anemia (Acute) Type 2 diabetes mellitus with hyperglycemia (Acute) Hypercholesterolemia (Acute) Bipolar disorder (Acute) History of pulmonary embolism (Acute) Obesity (BMI 30-39.9) (Acute) Past Medical History Medical History (Updated 08/13/23 @ 16:53 by Josse Herndon MD) Age-related osteoporosis without current pathological fracture Cholelithiasis Type 2 diabetes mellitus with hyperglycemia Hypercholesterolemia Bipolar disorder History of pulmonary embolism Family History Family History (Updated 03/07/23 @ 11:[address] [facility]) Father Lung cancer Mother Chronic mental illness Dementia Surgical History Surgical History History of section Social History Social History (Updated 04/19/22 @ 11:53 by Josse Herndon MD) Housing: House Alcohol intake: former Patient Tobacco Use Status: Former Tobacco user Tobacco use type: Cigarette Years Smoked: stopped 30 years old e-Cigarette/Vaping Use: Never Used Second Hand Smoke Exposure: No Current occupational status: retired Cognitive needs: No Hearing needs: No Vision needs: Yes Meds Allergies Allergy/AdvReac Type Severity Reaction Status Date / Time levomilnacipran [Fetzima] Allergy Unknown Unknown Verified 08/13/23 16:33 sertraline [Zoloft] Allergy Unknown Unknown Verified 08/13/23 16:33 vortioxetine Allergy Unknown Unknown Verified 08/13/23 16:33 [From Brintellix] Home Medications Medication Instructions Recorded Confirmed Last Taken Type cholecalciferol (vitamin D3) 25 25 mcg PO DAILY 08/20/20 05/01/23 Unknown History mcg (1,000 unit) capsule Assessment and Plan Assessment Anesthesia Assessment: Chart Reviewed
[2023-10-31 15:44] VITALS: BMI 30.2
[2023-11-01 09:50] VITALS: BMI 30.2
[2023-11-02 08:29] VITALS: BMI 29.6
[2023-11-02 08:46] VITALS: BP 135/57; PULSE 86; RESP 16; TEMP 36.6; O2SAT 98
[2023-11-02] MEDS: Lactated Ringers 1,000 ML 100 ML IVCONT (08:58)
--- NOTE | 2023-11-02 09:16 | MHC.SHP ---
Pre-Procedural Eval Section A - 24 Hr Update-Section A only Date of Service: 11/02/23 Section B - Complete if H&P > 30 days Chief Complaint: screening Details of Present Illness: see H&P no changes Relevant Family History (Specify if Yes): No Relevant Social History: None Present Medications: see Short Stay Collaborative assessment Medical History: No relevant PMH History of Previous Operations: No relevant previous surgery Allergies: Allergies Allergy/AdvReac Type Severity Reaction Status Date / Time levomilnacipran [Fetzima] Allergy Unknown Unknown Verified 08/13/23 16:33 sertraline [Zoloft] Allergy Unknown Unknown Verified 08/13/23 16:33 vortioxetine Allergy Unknown Unknown Verified 08/13/23 16:33 [From Brintellix] Review of Systems Sugical H&P ROS: Negative: Constitution, Cardiovascular, Respiratory, Neurological, Psychiatric, Hem-Onc, Allergic/Immunologic, Gastrointestinal, Genitourinary, Musculoskeletal, Integumentary, Endocrine and Eyes/Ears/Nose/Throat Exam Surgical H&P Exam: Normal: HEENT, Normal: Heart, Normal: Lungs, Normal: Extremities, Normal: Abdomen, Normal: Skin and Normal: Neurological Plan Diagnosis/Plan: Unchanged I have reviewed the history and physical and performed a pertinent physical examination on my patient. No changes have occurred unless specified. Time Spent With Patient Time: Total time managing care of this patient today ____ minutes.
[2023-11-02 09:24] LABS: Glucose, Whole Blood 76 mg/dL (60-115)
--- NOTE | 2023-11-02 09:30 | P.CONAN_ITS ---
[facility] Active Problems Active Problems: All Active Problems (Updated 08/13/23 @ 16:53 by Josse Herndon MD) Osteopenia (Acute) Vertigo (Acute) Tinea corporis (Acute) Annual physical exam (Acute) Acute kidney injury (Acute) [place] toxicity (Acute) Overweight (BMI 25.0-29.9) (Acute) Breast cancer screening by mammogram (Acute) Colon cancer screening (Acute) Medicare annual wellness visit, initial (Acute) Anemia (Acute) Obesity (BMI 30-39.9) (Acute) Type 2 diabetes mellitus with hyperglycemia (Acute) Hypercholesterolemia (Acute) Bipolar disorder (Acute) History of pulmonary embolism (Acute) Past Medical History Medical History Age-related osteoporosis without current pathological fracture Cholelithiasis Type 2 diabetes mellitus with hyperglycemia Hypercholesterolemia Bipolar disorder History of pulmonary embolism Patient : No Family History Family History Father Lung cancer Mother Chronic mental illness Dementia Family history of problems with anesthesia: No Surgical History Surgical History Hx of colonoscopy History of section Social History Social History Household Members: Spouse Housing: House Are you a primary healthcare architect to a significant other at home: No Do you presently have visiting nurse or other home services: No Alcohol intake: former Patient Tobacco Use Status: Former Tobacco user Tobacco use type: Cigarette Years Smoked: stopped 30 years old e-Cigarette/Vaping Use: Never Used Second Hand Smoke Exposure: No Use of substances other than those prescribed or required for medical reasons: No Have you been hit, kicked, punched, or otherwise hurt by someone within the past year? If so, by whom?: No Are you DNR?: No Advance Directives: No Advance Directives Information Provided: Yes Advance Directives on File: No Recently lost weight without trying: No Current occupational status: retired Cognitive needs: No Hearing needs: No Vision needs: Yes Meds Allergies Allergy/AdvReac Type Severity Reaction Status Date / Time levomilnacipran [Fetzima] Allergy Unknown Unknown Verified 08/13/23 16:33 sertraline [Zoloft] Allergy Unknown Unknown Verified 08/13/23 16:33 vortioxetine Allergy Unknown Unknown Verified 08/13/23 16:33 [From Brintellix] Active Medications: Current Medications Lactated Ringer's (Lr) 1,000 mls @ 100 mls/hr IVCONT .Q10H MORIAH Last Admin: 11/02/23 08:58 Dose: 100 mls/hr Home Medications Medication Instructions Recorded Confirmed Last Taken Type cholecalciferol (vitamin D3) 25 25 mcg PO DAILY 08/20/20 11/01/23 Unknown History mcg (1,000 unit) capsule Exam Height,Weight and Vital Signs: Height 5 ft 3 in Weight 75.807 kg Last Vital Signs Temp 97.8 F 11/02/23 08:46 Pulse 86 11/02/23 08:46 Resp 16 11/02/23 08:46 BP 135/57 L 11/02/23 08:46 Pulse Ox 98 11/02/23 08:46 O2 Del Method Room Air 11/02/23 08:46 Pertinent Lab Results Pertinent Lab Results: Laboratory Tests 11/02/23 09:19 POC Glucose 76 Airway TM Dist: >3cm Neck ROM: Full Heart: RRR Lungs: CTA Assessment and Plan Assessment Anesthesia Assessment: Anesthesia Plan Discussed Final Anesthetic Review Family History of Problems with Anesthesia: No ASA Class: III Final Preanesthetic Review: Meds/Allgs Chart Reviewed, Consent Obtained/Reviewed and Anes Risks/Benef Reviewed Patient Risk: Low Procedure Risk: Low Anesthetic Plan Anesthetic Plan: MAC: Disposition: Standard PACU
[2023-11-02 10:04] VITALS: BP 88/46; PULSE 76; RESP 14; TEMP 37.4; O2SAT 98
[2023-11-02 10:26] VITALS: BP 113/58; PULSE 69; RESP 18; TEMP 36.7; O2SAT 97
--- NOTE | 2023-11-02 10:26 | HO.POSTANES ---
Post Anesthesia Evaluation Post Anesthesia Evaluation Date of Service: 11/02/23 Vital Signs: Vital Signs Temp Pulse Resp BP Pulse Ox O2 Del Method 11/02/23 10:04 99.3 F 76 14 88/46 L 98 Room Air 11/02/23 08:46 97.8 F 86 16 135/57 L 98 Room Air Anesthesia: Monitored Mental Status: Awake Pain Control: Satisfactory Nausea/Vomiting: None Hydration: Adequate Anesthesia-Related Issues: No Anes. Related Issues
--- NOTE | 2023-11-02 10:28 | OP_ITS ---
DATE OF SERVICE: 11/02/2023 SURGEON: Umer Richter MD INDICATIONS: Colon cancer screening and family history of colon cancer. PREOPERATIVE DIAGNOSIS: POSTOPERATIVE DIAGNOSIS: PROCEDURE PERFORMED: Colonoscopy to the terminal ileum. ESTIMATED BLOOD LOSS: COMPLICATIONS: ANESTHESIA: Monitored anesthesia care. ASSISTANTS: SPECIMENS: DESCRIPTION OF PROCEDURE: A history and physical was performed. The risks and benefits of the procedure were explained to the patient, and informed consent was obtained. The patient was placed in the left lateral decubitus position. A digital rectal exam was performed and was found to be normal. The Olympus pediatric video colonoscope was introduced into the rectum and advanced to the cecum. The cecum was identified by transillumination, palpation, and identification of ileocecal valve. Examination was performed. The scope was removed. She tolerated the procedure well and was returned to the recovery area in stable condition. FINDINGS: The terminal ileum was briefly examined and appeared normal. The visualized colonic mucosa was normal. The quality of the prep was good. No polyps were identified. Retroflexed examination showed moderate-sized internal hemorrhoids. There was mild sigmoid diverticulosis with some diverticulosis involving the descending colon. IMPRESSION: Normal colonoscopy. RECOMMENDATION: 1. Follow up as needed. 2. Further colon cancer screening is optional based on the patient's age. MD MICHAEL De Leon/BROOKE / [phone]
== END 2023-11-02 10:50 | disposition home or self-care (01) ==
PROVIDERS: PCP Internal Medicine; Visit Provider Internal Medicine Gastroenterology
PROC: 0DJD8ZZ Inspection of Lower Intestinal Tract, Via Natural or Artificial Opening Endoscopic (ICD-10-PCS; CPT 45378; principal; 2023-11-02 09:40)
DX: Z12.11 Encounter for screening for malignant neoplasm of colon (principal); Z80.0 Family history of malignant neoplasm of digestive organs; K57.30 Diverticulosis of large intestine without perforation or abscess without bleeding; K64.8 Other hemorrhoids; E78.5 Hyperlipidemia, unspecified; E11.65 Type 2 diabetes mellitus with hyperglycemia; F41.8 Other specified anxiety disorders; Z86.711 Personal history of pulmonary embolism; Z79.84 Long term (current) use of oral hypoglycemic drugs; Z79.01 Long term (current) use of anticoagulants; Z79.899 Other long term (current) drug therapy; Z88.8 Allergy status to other drugs, medicaments and biological substances
CPT/HCPCS: G0105; 82947; J2250; J2704

== ENCOUNTER 2023-11-12 06:38 | Outpatient (REF) | payer MEDICARE, BC, SELFPAY ==
[2023-11-12 06:47] LABS: MANUAL DIFF FLAG NO
[2023-11-12 07:29] LABS: Basophils Absolute Auto 0.1 X10*3/uL (0.0-0.2); Basophils Percent Auto 0.7 % (0-2); Eosinophils Absolute Auto 0.2 X10*3/uL (0.0-0.4); Eosinophils Percent Auto 3.1 % (0-4); Hematocrit 38.5 % (37.0-47.0); Hemoglobin 12.4 g/dl (12.0-16.0); Imm Gran Abs Auto 0.04 X10*3/uL (0.00-0.03); Imm Gran Pct Auto 0.6 % (0.0-0.4); Lymphocytes Percent Auto 29.2 % (20-40); Mean Corpuscular HGB Conc 32.2 g/dl (31.0-35.0); Mean Platelet Volume 11.1 fL (9.4-12.3); Monocytes Absolute Auto 0.6 X10*3/uL (0.1-1.2); Monocytes Percent Auto 8.6 % (2-11); Neutrophils Percent Auto 57.8 % (45-73); Platelet Count 305 X10*3/uL (160-400); Red Blood Count 4.14 X10*6/uL (4.20-5.50); Red Cell Distribution Width 14.1 % (11.0-16.0); White Blood Count 6.9 X10*3/uL (4.8-10.8)
[2023-11-12 07:44] LABS: Estimated Average Glucose 117 mg/dL; Hemoglobin A1c % 5.7 % (<6.0)
[2023-11-12 07:58] LABS: Alanine Aminotransferase 8 U/L (0-31); Alkaline Phosphatase 48 U/L (39-117); Anion Gap 10 (12-20); Aspartate Amino Transferase 14 U/L (5-31); Bilirubin Total 0.4 mg/dL (0.0-1.0); Blood Urea Nitrogen 18 mg/dL (9-16); Calcium 9.8 mg/dL (8.4-10.2); Carbon Dioxide 26 mmol/L (22-29); Chloride 107 mmol/L (96-108); Estimated Glomerular Filt Rate 55; Glucose Random 110 mg/dL (60-115); Potassium 4.6 mmol/L (3.3-5.1); Sodium 138 mmol/L (135-145); Total Protein 7.6 g/dL (6.5-8.0)
== END 2023-11-12 06:39 | disposition home or self-care (01) ==
LOC: HO.LAB 06:38
PROVIDERS: PCP Internal Medicine; Visit Provider Internal Medicine
DX: Z86.711 Personal history of pulmonary embolism (principal)
CPT/HCPCS: 36415; 80053; 83036; 85025

== ENCOUNTER 2023-11-15 15:13 | Outpatient (AMB) | payer MEDICARE, BC, SELFPAY ==
[2023-11-15 15:19] VITALS: BP 128/62; PULSE 66; O2SAT 97; BMI 28.7
--- NOTE | 2023-11-15 15:19 | A.OFFPC_ITS ---
Vital Signs 11/15/23 15:19 Height 5 ft 3 in Weight 162 lb 0.2 oz BMI 28.7 BP 128/62 Blood Pressure Location Lt brachial Position Sitting Pulse 66 Pulse Source Pulse Oximeter Pulse Oximetry (%) 97 Oxygen Delivery Method Room Air Intake Visit Reasons: DM Senior Sales Compensation Analyst Required: No Allergies levomilnacipran [Fetzima] Allergy (Unknown, Verified 11/15/23 15:19) Unknown sertraline [Zoloft] Allergy (Unknown, Verified 11/15/23 15:19) Unknown vortioxetine [From Brintellix] Allergy (Unknown, Verified 11/15/23 15:19) Unknown Tobacco use date assessed: 11/15/23 Fall risk assessment: No Falls in past year Last assessed Fall Risk: 11/15/23 Dental Screening Dental Screen Date: 08/13/23 HPI DM HPI Details 73-year-old overweight female with diabe debbie mellitus hypercholesterolemia bipolar disorder coming in for follow-up. Last seen in August 2023. Patient has advised mammogram as well as colon cancer screening. Patient had a colonoscopy done in October 2023 which is normal. [facility] Medical History (Updated 11/15/23 @ 15:32 by Josse Herndon MD) Breast cancer screening by mammogram Obesity (BMI 30-39.9) Age-related osteoporosis without current pathological fracture Cholelithiasis Type 2 diabetes mellitus with hyperglycemia Hypercholesterolemia Bipolar disorder History of pulmonary embolism Surgical History Hx of colonoscopy History of section Family History Father Lung cancer Mother Chronic mental illness Dementia Social History Household Members: Spouse Housing: House Are you a primary direct care staffer to a significant other at home: No Do you presently have visiting nurse or other home services: No Alcohol intake: former Patient Tobacco Use Status: Former Tobacco user Tobacco use type: Cigarette Years Smoked: stopped 30 years old e-Cigarette/Vaping Use: Never Used Second Hand Smoke Exposure: No Current occupational status: retired Cognitive needs: No Hearing needs: No Vision needs: Yes Questionnaire Thrive Questionnaire Date Thrive assessed: 03/07/23 AUDIT C Alcohol Use Questionnaire (AUDIT-C) 1. How often do you have a drink containing alcohol?: Never 3. How often do you have six or more drinks on one occasion?: Never Total Score: 0 TRAE-7 AMB Questionnaire TRAE-7 Date TRAE - 7 assessed: 08/13/23 Source: Developed by Drs. Tu Hdz, Ruth Wolf, Connor Bennett and colleagues, with an educational nighat from [employer]. Physical exam (Primary Care) Vital Signs: Last Vital Signs Pulse 66 11/15/23 15:19 BP 128/62 11/15/23 15:19 Pulse Ox 97 11/15/23 15:19 Oxygen Delivery Method Room Air 11/15/23 15:19 BMI result Body Mass Index 28.7 Tobacco/Smoking Status: Tobacco use Status Tobacco use date assessed 11/15/23 11/15/23 15:20 Patient Tobacco Use Status Former Tobacco user 11/15/23 15:20 Tobacco use type Cigarette 11/15/23 15:20 e-Cigarette/Vaping Use Never Used 11/15/23 15:20 Thrive Assessment: Date of Thrive Assessment Date Thrive assessed 03/07/23 11/15/23 15:20 Const General: alert; No acute distress Eyes Conjunctivae: conjunctivae normal Resp Auscultation: clear to auscultation bilaterally Cardio Rate: regular rate Rhythm: regular rhythm GI Inspection: Yes normal to inspection Extrem General: Yes normal to inspection and No edema Assessment and Plan Assessment & Plan (1) Type 2 diabetes mellitus with hyperglycemia: Comment: Dr. Hahn. Dr. Paula Lanier Code(s): E11.65 - Type 2 diabetes mellitus with hyperglycemia Qualifiers: Diabetes mellitus usp insulin use: without terminal supervisor use Qualified Code(s): E11.65 - Type 2 diabetes mellitus with hyperglycemia Plan: Decrease the amount of carbohydrate intake, pasta, bread, rice and potatoes are all sugar and that is aside from all the sweet stuff, remember that fruits are good but they are Sweet also. Hemoglobin A1c goal of less than 7.0 patient on metformin 500 mg twice a day (2) Overweight (BMI 25.0-29.9): Code(s): E66.3 - Overweight Plan: Diet and exercise (3) Hypercholesterolemia: Code(s): E78.00 - Pure hypercholesterolemia, unspecified Plan: Avoid fried foods, chicken skin, eggs, butter margarine, pastries and meat. Be it pork or beef they have a lot of cholesterol LDL goal of less than 100 and triglyceride of less than 150. Patient on fenofibrate and simvastatin and the last blood work was done in January 2023. 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 Orders: Orders Complete Blood Count Auto Diff 3 Months E11.65 - Type 2 diabetes mellitus with hyperglycemia Thyroid Stimulating Hormone 3 Months E11.65 - Type 2 diabetes mellitus with hyperglycemia Creatinine Urine 3 Months E11.65 - Type 2 diabetes mellitus with hyperglycemia Comprehensive Met. Panel 3 Months E11.65 - Type 2 diabetes mellitus with hyperglycemia Free T4 (Free Thyroxine) 3 Months E11.65 - Type 2 diabetes mellitus with hyperglycemia Lipid Panel 3 Months E11.65 - Type 2 diabetes mellitus with hyperglycemia, E78.00 - Pure hypercholesterolemia, unspecified Vitamin B12 and Folate 3 Months E11.65 - Type 2 diabetes mellitus with hyperglycemia Vitamin D 25-OH Total 3 Months E11.65 - Type 2 diabetes mellitus with hyperglycemia Microalbumin, Random (w Creat) 3 Months E11.65 - Type 2 diabetes mellitus with hyperglycemia Coding Level of Care Code Est Pt Level 4 (49415) Diagnoses Type 2 diabetes mellitus with hyperglycemia, without long-term current use of insulin E11.65 Diabetes mellitus terminal supervisor insulin use: without terminal supervisor use Overweight (BMI 25.0-29.9) E66.3 Hypercholesterolemia E78.00 Bipolar affective disorder, currently depressed, moderate F31.32 Active/Remission status: currently active Current bipolar episode type: depressed Current episode severity: moderate History of pulmonary embolism Z86.711
== END 2023-11-15 15:45 | disposition home or self-care (01) ==
PROVIDERS: Visit Provider Internal Medicine
DX: E11.65 Type 2 diabetes mellitus with hyperglycemia (principal); E66.3 Overweight; E78.00 Pure hypercholesterolemia, unspecified; F31.32 Bipolar disorder, current episode depressed, moderate; Z86.711 Personal history of pulmonary embolism
CPT/HCPCS: 99214

== ENCOUNTER 2024-02-22 06:18 | Outpatient (REF) | payer MEDICARE, BC, SELFPAY ==
[2024-02-22 06:30] LABS: MANUAL DIFF FLAG NO
[2024-02-22 07:49] LABS: Basophils Absolute Auto 0.1 X10*3/uL (0.0-0.2); Basophils Percent Auto 0.8 % (0-2); Eosinophils Absolute Auto 0.2 X10*3/uL (0.0-0.4); Eosinophils Percent Auto 3.4 % (0-4); Hematocrit 38.9 % (37.0-47.0); Hemoglobin 12.4 g/dl (12.0-16.0); Imm Gran Abs Auto 0.02 X10*3/uL (0.00-0.03); Imm Gran Pct Auto 0.3 % (0.0-0.4); Lymphocytes Absolute Auto 1.4 X10*3/uL (1.2-4.9); Lymphocytes Percent Auto 22.6 % (20-40); Mean Corpuscular HGB Conc 31.9 g/dl (31.0-35.0); Mean Corpuscular Hemoglobin 30.1 pg (27.0-33.0); Mean Corpuscular Volume 94.4 fL (80.0-98.0); Mean Platelet Volume 10.6 fL (9.4-12.3); Monocytes Absolute Auto 0.6 X10*3/uL (0.1-1.2); Monocytes Percent Auto 9.1 % (2-11); Neutrophils Absolute Auto 3.9 x10*3/uL (2.0-8.3); Neutrophils Percent Auto 63.8 % (45-73); Platelet Count 319 X10*3/uL (160-400); Red Blood Count 4.12 X10*6/uL (4.20-5.50); Red Cell Distribution Width 14.3 % (11.0-16.0); White Blood Count 6.2 X10*3/uL (4.8-10.8)
[2024-02-22 08:58] LABS: Microalbum/Creatinine Ratio Ur 11.7 ug/mg cr (<30); Microalbumin Urine 9.9 mg/L
[2024-02-22 13:02] LABS: Folate 5.8 ng/mL (> or = 4.0); Vitamin B12 259 pg/mL (200-900)
[2024-02-22 17:17] LABS: Anion Gap 12 (12-20); Blood Urea Nitrogen 16 mg/dL (9-16); Carbon Dioxide 24 mmol/L (22-29); Chloride 107 mmol/L (96-108); Estimated Glomerular Filt Rate 54; Glucose Random 95 mg/dL (60-115); Potassium 5.2 mmol/L (3.3-5.1); Sodium 138 mmol/L (135-145)
[2024-02-22 17:18] LABS: Alanine Aminotransferase 9 U/L (0-31); Albumin Level 4.1 g/dL (3.5-5.0); Alkaline Phosphatase 41 U/L (39-117); Aspartate Amino Transferase 14 U/L (5-31); Bilirubin Total 0.3 mg/dL (0.0-1.0); Calcium 9.9 mg/dL (8.4-10.2); Cholesterol 138 mg/dL (<200); Free T4 (Free Thyroxine) 1.02 ng/dL (0.71-1.85); HDL Cholesterol 55 mg/dL (>40); LDL Cholesterol Calculated 62 mg/dL (<100); Thyroid Stimulating Hormone 2.88 uIU/mL (0.32-4.0); Total Protein 7.4 g/dL (6.5-8.0); Triglycerides 107 mg/dL (<150); Vitamin D 25-OH Total 28.1 ng/mL (>30)
== END 2024-02-22 06:19 | disposition home or self-care (01) ==
LOC: HO.LAB 06:18
PROVIDERS: PCP Internal Medicine; Visit Provider Internal Medicine
DX: E11.65 Type 2 diabetes mellitus with hyperglycemia (principal); E78.00 Pure hypercholesterolemia, unspecified
CPT/HCPCS: 36415; 80053; 80061; 82043; 82306; 82570; 82607; 82746; 84439; 84443; 85025

== ENCOUNTER 2024-02-29 15:00 | Outpatient (AMB) | payer MEDICARE, BC, SELFPAY ==
--- NOTE | 2024-02-29 15:02 | A.OFFPC_ITS ---
Intake Visit Reasons: Covid Symptoms Allergies levomilnacipran [Fetzima] Allergy (Unknown, Verified 02/29/24 15:02) Unknown sertraline [Zoloft] Allergy (Unknown, Verified 02/29/24 15:02) Unknown vortioxetine [From Brintellix] Allergy (Unknown, Verified 02/29/24 15:02) Unknown Tobacco use date assessed: 11/15/23 Fall risk assessment: No Falls in past year Last assessed Fall Risk: 02/29/24 Dental Screening Dental Screen Date: 08/13/23 HPI Covid Symptoms HPI Details 73-year-old female with diabetes mellitu s hypercholesterolemia bipolar disorder and history of pulmonary embolism calling in through Telehealth due to COVID. is positive for covid. last night patient has fever now and respiratory symptoms. Patient is concerned because the weekend is coming. Discussed we can send in the antiviral but would like her to check her COVID test 1st and if it has negative then no antiviral to be taken. Discussed concerns about interactions with Eliquis and advised to take half a tablet of Eliquis only for the next 5 days. Has to hold off from cholesterol medication. [facility] Medical History (Updated 02/29/24 @ 15:15 by Josse Herndon MD) Breast cancer screening by mammogram Obesity (BMI 30-39.9) Age-related osteoporosis without current pathological fracture Cholelithiasis Type 2 diabetes mellitus with hyperglycemia Hypercholesterolemia Bipolar disorder History of pulmonary embolism Surgical History Hx of colonoscopy History of section Family History Father Lung cancer Mother Chronic mental illness Dementia Social History Household Members: Spouse Housing: House Are you a primary care services manager to a significant other at home: No Do you presently have visiting nurse or other home services: No Alcohol intake: former Patient Tobacco Use Status: Former Tobacco user Tobacco use type: Cigarette Years Smoked: stopped 30 years old e-Cigarette/Vaping Use: Never Used Second Hand Smoke Exposure: No Current occupational status: retired Cognitive needs: No Hearing needs: No Vision needs: Yes Questionnaire PHQ-9 Over the last 2 weeks, how often have you been bothered by any of the following problems? 1. Little interest or pleasure in doing things: several days 2. Feeling down, depressed, or hopeless: several days (Takes Latuda and Viibryd) 3. Trouble falling or staying asleep, or sleeping too much: several days 4. Feeling tired or having little energy: several days 5. Poor appetite or overeating: not at all 6. Feeling bad about yourself - or that you are a failure or have let yourself or your family down: not at all 7. Trouble concentrating on things, such as reading the newspaper or watching television: not at all 8. Moving or speaking so slowly that other people could have noticed. Or the opposite - being so fidgety or restless that you have been moving around a lot more than usual: not at all 9. Thoughts that you would be better off or of hurting yourself in some way: not at all Total score: 4 Depression Screening Interpretation: Positive Depression Screening Done: Yes Source: Developed by Drs. Tu Hdz, Ruth Wolf, Connor Bennett and colleagues, with an educational nighat from [employer]. Thrive Questionnaire Date Thrive assessed: 02/29/24 I am a: Patient What is your living situation today?: I have a steady place to live Within the past 12 months, did the food you bought not last and you didn't have the money to get more?: Never true Within the past 12 months, did you worry whether your food would run out before you got money to buy more?: Never true Do you have trouble paying for medicines?: No Do you have trouble getting transportation to medical appointments?: No Do you have trouble paying your heating and electricity bill?: No Do you have trouble taking care of your child, family member or friend?: No Do you have trouble with day-to-day activities such as bathing, preparing meals, shopping, managing finances, etc.?: No Are you currently unemployed and looking for a job?: No Are you interested in more education?: No Currently or been in a relationship where the following occur: No concerns reported THRIVE Score: 0 AUDIT C Alcohol Use Questionnaire (AUDIT-C) 1. How often do you have a drink containing alcohol?: Never 3. How often do you have six or more drinks on one occasion?: Never Total Score: 0 TRAE-7 AMB Questionnaire TRAE-7 Date TRAE - 7 assessed: 08/13/23 Source: Developed by Drs. Tu Hdz, Ruth Wolf, Connor Bennett and colleagues, with an educational nighat from [employer]. Physical exam (Primary Care) Tobacco/Smoking Status: Tobacco use Status Tobacco use date assessed 11/15/23 02/29/24 15:03 Patient Tobacco Use Status Former Tobacco user 02/29/24 15:03 Tobacco use type Cigarette 02/29/24 15:03 e-Cigarette/Vaping Use Never Used 02/29/24 15:03 PHQ-9: PHQ-9 Score PHQ-9: Total score 4 02/29/24 15:11 Depression Screening Interpretation: Positive Thrive Assessment: Date of Thrive Assessment Date Thrive assessed 02/29/24 02/29/24 15:03 Currently or been in a relationship where the following occur: No concerns reported Telehealth Telehealth Location of provider rendering services: practice address Location of patient: address on file Patient Identification confirmed using: Name, : Yes Telehealth method: voice only (Iphone ) Patient verbally consented to treatment: Yes Patient verbally consented to billing insurance company: Yes Patient informed of any privacy concerns related to visit: Yes Minutes spent on Phone/Video with Pt.: 25 Assessment and Plan Assessment & Plan (1) COVID-19 virus infection: Code(s): U07.1 - COVID-19 Plan: Patient has not had this tested but concern because the weekend is coming. And so advised patient to check 1st with the COVID test. Because of GFR below 60 will send in for the renal dose. Discussed with the patient regarding interaction with Eliquis and so advised patient to take half a tablet of Eliquis twice a day for 5 days and hold cholesterol medication Medications: New nirmatrelvir-ritonavir 150-100 mg (Paxlovid) PO PER PKG DIR nirmatrelvit 150 mg with Ritonavir 100 mg BID 5 days 20 tabs 0RF U07.1 - COVID-19 Coding Level of Care Code Tele Est Pt Level 3 (08857) Diagnoses COVID-19 virus infection U07.1
== END 2024-02-29 16:55 | disposition home or self-care (01) ==
LOC: HO.HMGH 15:00
PROVIDERS: PCP Internal Medicine; Visit Provider Internal Medicine
DX: U07.1 COVID-19 (principal)
CPT/HCPCS: 99443

== ENCOUNTER 2024-03-31 15:42 | Outpatient (AMB) | payer MEDICARE, BC, SELFPAY ==
[2024-03-31 16:16] VITALS: BP 126/78; PULSE 92; O2SAT 97; BMI 27.7
--- NOTE | 2024-03-31 16:16 | A.OFFPC_ITS ---
Vital Signs 03/31/24 16:16 Height 5 ft 3 in Weight 156 lb 8 oz BMI 27.7 BP 126/78 Blood Pressure Location Lt brachial Position Sitting Pulse 92 Pulse Source Pulse Oximeter Pulse Oximetry (%) 97 Oxygen Delivery Method Room Air Intake Visit Reasons: 3mth f/u Ammonia Box Tender Required: No Accompanied by: Self / Same As Patient Allergies levomilnacipran [Fetzima] Allergy (Unknown, Verified 03/31/24 16:16) Unknown sertraline [Zoloft] Allergy (Unknown, Verified 03/31/24 16:16) Unknown vortioxetine [From Brintellix] Allergy (Unknown, Verified 03/31/24 16:16) Unknown Tobacco use date assessed: 03/31/24 Fall risk assessment: No Falls in past year Last assessed Fall Risk: 03/31/24 Dental Screening Dental Screen Date: 03/31/24 Did you have a dental visit in the last 12 months?: Yes Did you have a dental problem in the last 6 months where you did not have access to dental care?: No Was dental information given to patient?: Patient has dentist HPI 3mth f/u HPI Details 73-year-old overweight female with a his tory of pulmonary embolism bipolar disorder hypercholesterolemia diabetes mellitus coming in for follow-up. Last seen in February having COVID-19 infection. Noted weight loss 6 lb. Patient's mammogram is up-to-date colonoscopy up-to-date 10/24/2023 bone density is up-to-date also 03/25/2023 and has gone to [place] for bird watching takes pictures and patient is the spider. Patient has been doing fine otherwise noted weight loss noted blood sugars to be down also [facility] Medical History (Updated 02/29/24 @ 15:15 by Josse Herndon MD) Breast cancer screening by mammogram Obesity (BMI 30-39.9) Age-related osteoporosis without current pathological fracture Cholelithiasis Type 2 diabetes mellitus with hyperglycemia Hypercholesterolemia Bipolar disorder History of pulmonary embolism Surgical History Hx of colonoscopy History of section Family History Father Lung cancer Mother Chronic mental illness Dementia Social History Household Members: Spouse Housing: House Are you a primary career professional to a significant other at home: No Do you presently have visiting nurse or other home services: No Alcohol intake: former Patient Tobacco Use Status: Former Tobacco user Tobacco use type: Cigarette Years Smoked: stopped 30 years old e-Cigarette/Vaping Use: Never Used Second Hand Smoke Exposure: No service: No Current occupational status: retired Current occupational exposures/hazards: No Cognitive needs: No Hearing needs: No Vision needs: Yes Questionnaire PHQ-9 Over the last 2 weeks, how often have you been bothered by any of the following problems? 1. Little interest or pleasure in doing things: several days 2. Feeling down, depressed, or hopeless: several days (Takes Latuda and Viibryd) 3. Trouble falling or staying asleep, or sleeping too much: several days 4. Feeling tired or having little energy: several days 5. Poor appetite or overeating: not at all 6. Feeling bad about yourself - or that you are a failure or have let yourself or your family down: not at all 7. Trouble concentrating on things, such as reading the newspaper or watching television: not at all 8. Moving or speaking so slowly that other people could have noticed. Or the opposite - being so fidgety or restless that you have been moving around a lot more than usual: not at all 9. Thoughts that you would be better off or of hurting yourself in some way: not at all Total score: 4 Depression Screening Interpretation: Positive Depression Screening Done: Yes Source: Developed by Drs. Tu Hdz, Ruth Wolf, Connor Bennett and colleagues, with an educational nighat from [employer]. Thrive Questionnaire Date Thrive assessed: 03/31/24 I am a: Patient What is your living situation today?: I have a steady place to live Within the past 12 months, did the food you bought not last and you didn't have the money to get more?: Never true Within the past 12 months, did you worry whether your food would run out before you got money to buy more?: Never true Do you have trouble paying for medicines?: No Do you have trouble getting transportation to medical appointments?: No Do you have trouble paying your heating and electricity bill?: No Do you have trouble taking care of your child, family member or friend?: No Do you have trouble with day-to-day activities such as bathing, preparing meals, shopping, managing finances, etc.?: No Are you currently unemployed and looking for a job?: No Are you interested in more education?: No Please select the resources that you would like help with: None Currently or been in a relationship where the following occur: No concerns reported THRIVE Score: 0 AUDIT C Alcohol Use Questionnaire (AUDIT-C) 1. How often do you have a drink containing alcohol?: Never 3. How often do you have six or more drinks on one occasion?: Never Total Score: 0 TRAE-7 AMB Questionnaire TRAE-7 Date TRAE - 7 assessed: 03/31/24 Feeling nervous, anxious, or on edge: 0 = Not at all Not being able to stop or control worryin = Not at all Worrying too much about different things: 0 = Not at all Trouble relaxin = Not at all Being so restless that it is hard to sit still: 0 = Not at all Becoming easily annoyed or irritable: 0 = Not at all Feeling afraid as if something awful might happen: 0 = Not at all Total TRAE-7 score (0-4 normal; 5-9 mild; 10-14 moderate; 15-21 severe): 0 Source: Developed by Drs. Tu Hdz, Ruth Wolf, Connor Bennett and colleagues, with an educational nighat from [employer]. Physical exam (Primary Care) Vital Signs: Last Vital Signs Pulse 92 03/31/24 16:16 BP 126/78 03/31/24 16:16 Pulse Ox 97 03/31/24 16:16 Oxygen Delivery Method Room Air 03/31/24 16:16 BMI result Body Mass Index 27.7 Tobacco/Smoking Status: Tobacco use Status Tobacco use date assessed 03/31/24 03/31/24 16:17 Patient Tobacco Use Status Former Tobacco user 03/31/24 16:17 Tobacco use type Cigarette 03/31/24 16:17 e-Cigarette/Vaping Use Never Used 03/31/24 16:17 PHQ-9: PHQ-9 Score PHQ-9: Total score 4 03/31/24 16:30 Depression Screening Interpretation: Positive Thrive Assessment: Date of Thrive Assessment Date Thrive assessed 03/31/24 03/31/24 16:17 Currently or been in a relationship where the following occur: No concerns reported Const General: alert; No acute distress Eyes Conjunctivae: conjunctivae normal Resp Auscultation: clear to auscultation bilaterally Cardio Rate: regular rate Rhythm: regular rhythm GI Inspection: Yes normal to inspection Extrem General: Yes normal to inspection and No edema Results AMB Hemoglobin A1c AMB Hemoglobin A1c 4.6 % Last Edit by TESS Hackett on 03/31/24 16 :28 Immunizations tetanus-diphtheria toxoids-Td 2 Lf unit-2 Lf unit/0.5 mL IM suspension Performing Provider: Josse Herndon MD [facility] Administered by: TESS Hackett on 03/31/24 16:46 Dose Route Admin Location Dispensed Lot Number Expiration Date NDC Audit Clerks Supervisor 0.5 mL IM Left Deltoid 0.5 mL [id number] 09/15/24 [id number] [employer] VIS Given Date VIS Provided VIS Publication Date 03/31/24 Single Vaccine 21 Eligibility Eligibility Date Funding Source Not VFC Eligible 03/31/24 [facility] Results Reviewed Results Reviewed: Laboratory Last Values Hgb A1c (Clinic) 4.6 % (4.0-6.0) 03/31/24 16:17 Assessment and Plan Assessment & Plan (1) Type 2 diabetes mellitus with hyperglycemia: Comment: Dr. Hahn. Dr. Paula Lanier Code(s): E11.65 - Type 2 diabetes mellitus with hyperglycemia Qualifiers: Diabetes mellitus intermodal truck driver insulin use: without intermodal truck driver use Qualified Code(s): E11.65 - Type 2 diabetes mellitus with hyperglycemia Plan: Decrease the amount of carbohydrate intake, pasta, bread, rice and potatoes are all sugar and that is aside from all the sweet stuff, remember that fruits are good but they are Sweet also. Hemoglobin A1c goal of less than 7.0 patient is on metformin 500 mg twice a day (2) Hypercholesterolemia: Code(s): E78.00 - Pure hypercholesterolemia, unspecified Plan: Avoid fried foods, chicken skin, eggs, butter margarine, pastries and meat. 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 2017 Code(s): Z86.711 - Personal history of pulmonary embolism Plan: Continue with anticoagulation on Eliquis 5 mg twice a day (4) Bipolar disorder: Comment: gurpreet Martinez Q 2 weeks Code(s): F31.9 - Bipolar disorder, unspecified Qualifiers: Active/Remission status: currently active Current bipolar episode type: depressed Current episode severity: moderate Qualified Code(s): F31.32 - Bipolar disorder, current episode depressed, moderate Plan: Continue with counseling and therapy (5) Overweight (BMI 25.0-29.9): Code(s): E66.3 - Overweight Plan: Diet and exercise Orders: Orders AMB Hemoglobin A1c Today Z13.9 - Encounter for screening, unspecified Td State Immunization Today Z23 - Encounter for immunization Medications: New tetanus-diphtheria toxoids-Td 0.5 mL IM ONCE 0.5 mL 0RF Z23 - Encounter for immunization Changed From metformin 500 mg PO BID 180 tabs 2RF To metformin 500 mg PO .QD 90 tabs 2RF Discontinued nirmatrelvir-ritonavir 150-100 mg (Paxlovid) Discontinued Reason: Patient Completed Course PO PER PKG DIR nirmatrelvit 150 mg with Ritonavir 100 mg BID 5 days 20 tabs 0RF U07.1 - COVID-19 Coding Level of Care Code Est Pt Level 4 (73990) Diagnoses Type 2 diabetes mellitus with hyperglycemia, without long-term current use of insulin E11.65 Diabetes mellitus fci insulin use: without intermodal truck driver use Hypercholesterolemia E78.00 History of pulmonary embolism Z86.711 Bipolar affective disorder, currently depressed, moderate F31.32 Active/Remission status: currently active Current bipolar episode type: depressed Current episode severity: moderate Overweight (BMI 25.0-29.9) E66.3
== END 2024-03-31 16:48 | disposition home or self-care (01) ==
PROVIDERS: PCP Internal Medicine; Visit Provider Internal Medicine
DX: E11.65 Type 2 diabetes mellitus with hyperglycemia (principal); E78.00 Pure hypercholesterolemia, unspecified; Z86.711 Personal history of pulmonary embolism; F31.32 Bipolar disorder, current episode depressed, moderate; E66.3 Overweight; Z23 Encounter for immunization; Z13.9 Encounter for screening, unspecified
CPT/HCPCS: 83036; 90471; 90714; 99214

== ENCOUNTER 2024-05-02 11:20 | Outpatient (AMB) | payer MEDICARE, BC, SELFPAY ==
--- NOTE | 2024-05-02 11:25 | MHC.PC.OV ---
Vital Signs 05/02/24 11:29 Height 5 ft 3 in Weight 157 lb 8 oz BMI 27.9 BP 122/72 Blood Pressure Location Lt brachial Position Sitting Pulse 89 Pulse Source Pulse Oximeter Pulse Oximetry (%) 97 Oxygen Delivery Method Room Air Intake Visit Reasons: PE Intake Note: Patient is here today for a physical. Mercury Cracking Tester Required: No Tail Board Man: Not Required per policy Accompanied by: Self / Same As Patient Allergies levomilnacipran [Fetzima] Allergy (Unknown, Verified 05/02/24 11:29) Unknown sertraline [Zoloft] Allergy (Unknown, Verified 05/02/24 11:29) Unknown vortioxetine [From Brintellix] Allergy (Unknown, Verified 05/02/24 11:29) Unknown Medication List - Last Reconciled 05/02/24 by Josse Herndon MD apixaban (Eliquis) 5 mg PO BID cholecalciferol (vitamin D3) 25 mcg PO DAILY cyanocobalamin (vitamin B-12) 1,000 mcg PO DAILY fenofibrate 160 mg PO DAILY 90 days lisinopril 2.5 mg PO DAILY metformin 500 mg PO .QD nystatin 1 appl topical BID simvastatin 40 mg PO BEDTIME Tobacco use date assessed: 05/02/24 Fall risk assessment: No Falls in past year Last assessed Fall Risk: 05/02/24 Dental Screening Dental Screen Date: 03/31/24 HPI PE HPI Details 73-year-old overweight female with controlled diabetes mellitus hypercholesterolemia history of pulmonary embolism with anticoagulation bipolar disorder coming in for physical exam last seen in 03/25/2024. Patient's mammogram is up-to-date 08/25/2023 colonoscopy up-to-date 10/24/2023 bone density up-to-date 03/25/2023. occ dizzy states am only. does goe upand down stairs no problem , states compared with she gets SOB first. but decline work up for now [facility] Medical History (Updated 05/02/24 @ 11:46 by Josse Herndon MD) Colon cancer screening Breast cancer screening by mammogram Obesity (BMI 30-39.9) Age-related osteoporosis without current pathological fracture Cholelithiasis Type 2 diabetes mellitus with hyperglycemia Hypercholesterolemia Bipolar disorder History of pulmonary embolism Surgical History Hx of colonoscopy History of section Family History Father Lung cancer Mother Chronic mental illness Dementia Social History (Updated 05/02/24 @ 11:50 by Josse Herndon MD) Household Members: Spouse Housing: House Are you a primary post acute care nurse practitioner to a significant other at home: No Do you presently have visiting nurse or other home services: No Alcohol intake: current Alcohol intake frequency: holidays/special occasions only Comment: once Q 6 months 1 glass Patient Tobacco Use Status: Former Tobacco user Tobacco use type: Cigarette Years Smoked: stopped 30 years old e-Cigarette/Vaping Use: Never Used Second Hand Smoke Exposure: No service: No Current occupational status: retired Current occupational exposures/hazards: No Cognitive needs: No Hearing needs: No Vision needs: Yes Questionnaire PHQ-9 Over the last 2 weeks, how often have you been bothered by any of the following problems? 1. Little interest or pleasure in doing things: not at all 2. Feeling down, depressed, or hopeless: not at all 3. Trouble falling or staying asleep, or sleeping too much: not at all 4. Feeling tired or having little energy: several days 5. Poor appetite or overeating: not at all 6. Feeling bad about yourself - or that you are a failure or have let yourself or your family down: not at all 7. Trouble concentrating on things, such as reading the newspaper or watching television: not at all 8. Moving or speaking so slowly that other people could have noticed. Or the opposite - being so fidgety or restless that you have been moving around a lot more than usual: not at all 9. Thoughts that you would be better off or of hurting yourself in some way: not at all Total score: 1 Depression Screening Interpretation: Positive Depression Screening Done: Yes Source: Developed by Drs. Tu Hdz, Ruth Wolf, Connor Bennett and colleagues, with an educational nighat from [employer] Thrive Questionnaire Date Thrive assessed: 05/02/24 I am a: Patient What is your living situation today?: I choose not to answer this question Within the past 12 months, did the food you bought not last and you didn't have the money to get more?: I choose not to answer this question Within the past 12 months, did you worry whether your food would run out before you got money to buy more?: I choose not to answer this question Do you have trouble paying for medicines?: I choose not to answer this question Do you have trouble getting transportation to medical appointments?: No Do you have trouble paying your heating and electricity bill?: I choose not to answer this question Do you have trouble taking care of your child, family member or friend?: No Do you have trouble with day-to-day activities such as bathing, preparing meals, shopping, managing finances, etc.?: No Are you currently unemployed and looking for a job?: I choose not to answer this question Are you interested in more education?: I choose not to answer this question Please select the resources that you would like help with: None Currently or been in a relationship where the following occur: I choose not to answer THRIVE Score: 0 AUDIT C Alcohol Use Questionnaire (AUDIT-C) 1. How often do you have a drink containing alcohol?: Never 2. How many drinks containing alcohol do you have on a typical day when you are drinking?: 1 or 2 3. How often do you have six or more drinks on one occasion?: Never Total Score: 0 TRAE-7 AMB Questionnaire TRAE-7 Date TRAE - 7 assessed: 05/02/24 Feeling nervous, anxious, or on edge: 2 = More than half the days Not being able to stop or control worryin = Not at all Worrying too much about different things: 0 = Not at all Trouble relaxin = Not at all Being so restless that it is hard to sit still: 0 = Not at all Becoming easily annoyed or irritable: 2 = More than half the days Feeling afraid as if something awful might happen: 0 = Not at all Total TRAE-7 score (0-4 normal; 5-9 mild; 10-14 moderate; 15-21 severe): 4 Source: Developed by Drs. Tu Hdz, Ruth Wolf, Connor Bennett and colleagues, with an educational nighat from [employer] Review of Systems Const Denies poor appetite and Denies weakness Eyes Denies no additional complaints ENT Reports Normal hearing present, Denies dizziness, Denies nasal congestion, Denies tinnitus and Denies sore throat Card Denies chest pain, Denies syncope, Denies rapid heart rate and Denies dyspnea Resp Denies cough and Denies dyspnea GI Denies change in stool character, Reports constipation, Denies diarrhea, Denies nausea and Denies vomiting Denies urinary frequency, Denies difficulty voiding and Denies dysuria Neuro Reports Normal hearing present, Denies confusion, Denies dizziness, Denies syncope and Denies weakness Psych Denies confusion Physical exam (Primary Care) Vital Signs: Last Vital Signs Pulse 89 05/02/24 11:29 BP 122/72 05/02/24 11:29 Pulse Ox 97 05/02/24 11:29 Oxygen Delivery Method Room Air 05/02/24 11:29 BMI result Body Mass Index 27.9 Tobacco/Smoking Status: Tobacco use Status Tobacco use date assessed 05/02/24 05/02/24 11:35 Patient Tobacco Use Status Former Tobacco user 05/02/24 11:27 Tobacco use type Cigarette 05/02/24 11:27 e-Cigarette/Vaping Use Never Used 05/02/24 11:27 PHQ-9: PHQ-9 Score PHQ-9: Total score 1 05/02/24 11:35 Depression Screening Interpretation: Positive Thrive Assessment: Date of Thrive Assessment Date Thrive assessed 05/02/24 05/02/24 11:35 Currently or been in a relationship where the following occur: I choose not to answer Const General: No confusion Orientation/consciousness: No confusion HENMT Head: Yes normocephalic Ears: external ears normal and TM's normal bilaterally Face and sinus: Yes normal facial exam Mouth: moist mucous membranes Throat: Yes tonsils normal Eyes Conjunctivae: conjunctivae normal Pupils: Equal, round and reactive pupils present and Pupil accommodation reflex normal Direct Ophthalmoscopy: normal light reflex Neck Neck: No lymphadenopathy Thyroid: Thyroid normal Chest Chest palpation & inspection: normal inspection of the chest Resp Effort & Inspection: normal respiratory effort and no audible wheezes Auscultation: clear to auscultation bilaterally, no crackles, no wheezes and lung sounds not diminished Cardio Rate: regular rate Rhythm: regular rhythm Peripheral pulses: radial pulses present and dorsalis pedis present GI Other: Patient just had recent colonoscopy Palpation (GI): no masses Auscultation: normal bowel sounds and normoactive bowel sounds Rectal Exam - Female: deferred Skin General skin exam: no rashes or lesions noted Rashes: no rashes Neuro General: No confusion Cranial nerves: Yes Equal, round and reactive pupils present and Yes Normal hearing present Cognition (Neuro): normal cognition Gait exam (Neuro): Normal gait present Motor exam (neuro): 5/5 motor strength present throughout Deep tendon reflexes (DTR's): Right brachioradialis reflex intensity grade: 2+, Left brachioradialis reflex intensity grade: 2+, Right patellar reflex intensity grade: 2+ and Left patellar reflex intensity grade: 2+ Extrem General: No edema Psych Other: Pinprick and pedal pulses normal Assessment and Plan Assessment & Plan (1) Annual physical exam: Code(s): Z00.00 - Encounter for general adult medical examination without abnormal findings Plan: Patient is advised to eat healthy, keep well hydrated, keep active and have adequate sleep. (2) Overweight (BMI 25.0-29.9): Code(s): E66.3 - Overweight Plan: Diet and exercise (3) Type 2 diabetes mellitus with hyperglycemia: Comment: Dr. Hahn. Dr. Paula Lanier Code(s): E11.65 - Type 2 diabetes mellitus with hyperglycemia Qualifiers: Diabetes mellitus long-term insulin use: without long-term use Qualified Code(s): E11.65 - Type 2 diabetes mellitus with hyperglycemia Plan: Decrease the amount of carbohydrate intake, pasta, bread, rice and potatoes are all sugar and that is aside from all the sweet stuff, remember that fruits are good but they are Sweet also. Hemoglobin A1c goal of less than 7.0. On metformin 500 mg once a day (4) Hypercholesterolemia: Code(s): E78.00 - Pure hypercholesterolemia, unspecified Plan: Avoid fried foods, chicken skin, eggs, butter margarine, pastries and meat. 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 (6) Bipolar disorder: Comment: [place] Michelle Q 2 weeks Code(s): F31.9 - Bipolar disorder, unspecified Qualifiers: Active/Remission status: currently active Current bipolar episode type: depressed Current episode severity: moderate Qualified Code(s): F31.32 - Bipolar disorder, current episode depressed, moderate Plan: Continue with counseling and therapy. Medications: Discontinued metformin Discontinued Reason: Doctor's Order 500 mg PO .QD 90 tabs 2RF Coding Level of Care Code Est Pt Prev Care >65y(00601) Diagnoses Annual physical exam Z00.00 Overweight (BMI 25.0-29.9) E66.3 Type 2 diabetes mellitus with hyperglycemia, without long-term current use of insulin E11.65 Diabetes mellitus long-term insulin use: without long-term use Hypercholesterolemia E78.00 History of pulmonary embolism Z86.711 Bipolar affective disorder, currently depressed, moderate F31.32 Active/Remission status: currently active Current bipolar episode type: depressed Current episode severity: moderate
[2024-05-02 11:29] VITALS: BP 122/72; PULSE 89; O2SAT 97; BMI 27.9
== END 2024-05-02 12:11 | disposition home or self-care (01) ==
PROVIDERS: PCP Internal Medicine; Visit Provider Internal Medicine
DX: Z00.00 Encounter for general adult medical examination without abnormal findings (principal); E11.65 Type 2 diabetes mellitus with hyperglycemia; F31.32 Bipolar disorder, current episode depressed, moderate; E66.3 Overweight; E78.00 Pure hypercholesterolemia, unspecified; Z86.711 Personal history of pulmonary embolism

== ENCOUNTER → 2024-05-02 11:20 | Outpatient (BNVA) | payer MEDICARE, BC, SELFPAY | PROVIDERS: PCP Internal Medicine; Visit Provider Internal Medicine | DX: Z00.01 Encounter for general adult medical examination with abnormal findings (principal); E66.3 Overweight; E11.65 Type 2 diabetes mellitus with hyperglycemia; E78.00 Pure hypercholesterolemia, unspecified; F31.32 Bipolar disorder, current episode depressed, moderate; Z86.711 Personal history of pulmonary embolism | CPT/HCPCS: 99397 ==

== ENCOUNTER 2024-08-14 08:33 | Outpatient (AMB) | payer MEDICARE, BC, SELFPAY ==
--- OUTSIDE RECORDS SUMMARY | 2024-08-14 08:48 | XMS_ITS ---
Author Organization [facility] Address [address] [place] [id number] Care Team Providers Care Mold Runner Name Role Phone Josse Herndon MD Primary Care Provider Umer Isbell Jr Unavailable [phone] ALLERGIES No Known Allergies REASON FOR VISIT Patient presents today for a COLON SCREENING MEDICATIONS Medication SIG (Take, Route, Frequency, Duration) Notes Start Date End Date Status traZODone HCl 50 MG TAKE 1 TABLET BY DAYANARA TH AT BEDTIME NEEDED Oral for 30 Not-Taking Tylenol 500 mg 4 tablet as needed Orally every 6 hrs Active Lisinopril 2.5 MG TAKE 1 TABLET BY DAYANARA TH EVERY DAY Oral for 90 Active Vitamin D-3 Active Fenofibrate 160 MG TAKE 1 TABLET BY DAYANARA TH EVERY DAY WITH FOOD Oral for 30 Active metFORMIN HCl 500 MG 1 tablet with a radha l Orally Once a day Active Eliquis 5 MG 1 tablet Orally Twic e a day for 30 day(s) Active Simvastatin 40 MG TAKE 1 TABLET IN THE EVENING ONCE A DAY ORALLY Orally Once a day Active MiraLax (colon prep) 17 GM/SCOOP mixed with Gatorade or Crystal Light Orally begin at 5:00 p.m. the day before the procedure for 1 day 09/17/2023 Active VITAL SIGNS BMI 30.18 kg/m2 09/17/2023 Blood pressure systolic 000 mm Hg 09/17/19 24 Blood pressure diastolic 00 mm Hg 024 Height 62 in 09/17/2023 Temperature 97.5 degrees Fahrenheit 09/17/19 24 Weight 165 lbs 09/17/2023 Encounters Encounter Location Date Provider Diagnosis [facility] [address] [place] [address] 09/17/2023 Umer Richter Jr Colon cancer screening Z12.11 and custodial (current) use of anticoagulants Z79.01 ASSESSMENTS Encounter Date Diagnosis Assessment Notes Treatment Notes Treatment Clinical Notes 09/17/2023 Colon cancer screening (ICD-10 - Z12.11) 09/17/2023 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 the day before the procedure for 1 day 09/17/2023 Future Test Test Name Order Date COLONOSCOPY 09/17/2023 Next Appt Details Follow Up: 1 Year, Reason: Progress Notes * Examination Category Sub-Category Detail Notes General Examination GENERAL APPEARANCE: in no ac tucker distress HEAD: normocephalic EYES: sclera non-icteric NECK/THYROID: no lymphadenopathy HEART: S1, S2 normal, no mu rmurs CHEST: normal shape and exp ansion LUNGS: clear to auscultatio n bilaterally ABDOMEN: soft, nontender, non distended, bowel sounds present, no organomegaly SKIN: anicteric EXTREMITIES: no clubbing, cyanosi s, or edema PSYCH: cognitive function i ntact ORAL CAVITY: mucosa moist
--- OUTSIDE RECORDS SUMMARY | 2024-08-14 08:48 | XMS_ITS ---
Author Organization [facility] Address [address] [place] [address] Care Team Providers Care Water Softener Service Supervisor Name Role Phone Po Josse GTZ Primary Care Provider Umer Isbell Jr REASON FOR VISIT screening colon Encounters Encounter Location Date Provider Diagnosis [facility] [address] [place] [phone] 11/02/2023 Umer Richter Jr Encounter for screening colonoscopy Z12.11 and Family history of colon cancer Z80.0 ASSESSMENTS Encounter Date Diagnosis Assessment Notes Treatment Notes Treatment Clinical Notes 11/02/2023 Encounter for screening colonoscopy (ICD-10 - Z12.11) 11/02/2023 Family history of colon cancer (ICD-10 - Z80.0) PLAN OF TREATMENT No Information
--- OUTSIDE RECORDS SUMMARY | 2024-08-14 08:48 | XMS_ITS | Patient Health Record ---
Author Organization [facility] Address [address] [place] [phone] Care Team Providers Care Forest Resource Specialist Name Role Phone Josse Herndon MD Primary Care Provider Umer Isbell Jr Unavailable ALLERGIES No Known Allergies RESULTS Component Value Reference Range Notes Glucose, Whole Blood Reviewed date:11/02/2023 03:49:12 PM Interpretation: Performing Lab:[facility], [address] [place] [id number] Notes/Report: Glucose, Whole Blood 76 60-115 mg/dL METER # : [id number] REASON FOR REFERRAL No Information MEDICATIONS Medication SIG (Take, Route, Frequency, Duration) Notes Start Date End Date Status Fenofibrate 160 MG TAKE 1 TABLET BY DAYANARA TH EVERY DAY WITH FOOD Oral for 30 Active metFORMIN HCl 500 MG 1 tablet with a radha l Orally Once a day Active Eliquis 5 MG 1 tablet Orally Twic e a day for 30 day(s) Active traZODone HCl 50 MG TAKE 1 TABLET BY DAYANARA TH AT BEDTIME NEEDED Oral for 30 Not-Taking Simvastatin 40 MG TAKE 1 TABLET IN THE EVENING ONCE A DAY ORALLY Orally Once a day Active Tylenol 500 mg 4 tablet as needed Orally every 6 hrs Active MiraLax (colon prep) 17 GM/SCOOP mixed with Gatorade or Crystal Light Orally begin at 5:00 p.m. 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) use of anticoagulants (Z79.01) Active confirmed 870799010 Problem Family history of colon cancer (Z80.0) Active confirmed [id number] VITAL SIGNS Temperature 97.5 degrees Fahrenheit 09/17/2023 Blood pressure diastolic 00 mm Hg 09/17/2023 Height 62 in 09/17/2023 Blood pressure systolic 000 mm Hg 09/17/2023 Weight 165 lbs 09/17/2023 BMI 30.18 kg/m2 09/17/2023 Encounters Encounter Location Date Provider Diagnosis [facility] [address] [place], [place] [phone] 11/02/2023 Umer Richter Jr Encounter for screening colonoscopy Z12.11 and Family history of colon cancer Z80.0 [facility] [address] [place] [address] 09/17/2023 Umer Richter Jr Colon cancer screening Z12.11 and [facility] (current) use of anticoagulants Z79.01 ASSESSMENTS Encounter Date Diagnosis Assessment Notes Treatment Notes Treatment Clinical Notes 11/02/2023 Encounter for screening colonoscopy (ICD-10 - Z12.11) 11/02/2023 Family history of colon cancer (ICD-10 - Z80.0) 09/17/2023 Colon cancer screening (ICD-10 - Z12.11) 09/17/2023 [facility] (current) use of anticoagulants (ICD-10 - Z79.01) PLAN OF TREATMENT Future Test Test Name Order Date COLONOSCOPY 03/04/2014 COLONOSCOPY 03/10/2020 COLONOSCOPY 09/17/2023 Insurance Providers Payer Name Payer Address Payer Phone Subscriber Number Group Number Insured Name Patient Relationship to Insured Coverage Start Date Coverage End Date [place] [address] [place] [id number] ZAID GARCIA Self - patient is the insured [facility] [address] [place], [place] [id number] [phone] [id number] ZAID GARCIA Self - patient is the insured MEDICAL (GENERAL) HISTORY Medical History History ICD Code Anxiety/depression/panic attacks DVT/PE with pulmonary infarction Hyperlipidemia Diabetes type 2 Surgical History Surgery Date(Month/Year) section Hospitalization History Reason Date(Month/Year) Lab - blood clots 02/2020 ultrasound on left leg - Large Cyst 02/04 020
--- NOTE | 2024-08-14 08:50 | MHC.PC.OV ---
Vital Signs 08/14/24 08:51 Height 5 ft 3 in Weight 155 lb BMI 27.5 BP 134/62 Blood Pressure Location Lt brachial Position Sitting Pulse 77 Pulse Source Pulse Oximeter Pulse Oximetry (%) 98 Oxygen Delivery Method Room Air Intake Visit Reasons: 3 mo F/U Allergies levomilnacipran [Fetzima] Allergy (Unknown, Verified 08/14/24 08:51) Unknown sertraline [Zoloft] Allergy (Unknown, Verified 08/14/24 08:51) Unknown vortioxetine [From Brintellix] Allergy (Unknown, Verified 08/14/24 08:51) Unknown Tobacco use date assessed: 08/14/24 Fall risk assessment: No Falls in past year Last assessed Fall Risk: 08/14/24 Dental Screening Dental Screen Date: 08/14/24 Did you have a dental visit in the last 12 months?: Yes Did you have a dental problem in the last 6 months where you did not have access to dental care?: No Was dental information given to patient?: Patient has dentist HPI 3 mo F/U HPI Details The patient is a 74-year-old female presenting with a wellness visit and monitoring of her chronic health conditions. The patient's diabetes is being managed effectively and her hemoglobin A1c is 6.0, below the target of 7. She has not required refills for medications related to her diabetes. She has reported weight loss since her last visit. Blood pressure is well-controlled as per recent readings and there are no current issues requiring new medication refills. The patient received her last complete blood work in February and is not due for another urgent check. Her was recently ill and required testing for respiratory viruses including RSV and COVID-19, but is recovering well. The patient is taking precautions to avoid crowds due to the current flu season and risk of norovirus. She confirmed adequate water intake and normal bowel and urinary function. The patient sees Dr. Kamari ernst [place] for her annual eye exams and is scheduled for her next appointment in October. She is due for a mammogram this month and has an appointment scheduled. The patient uses a Direct Oral Anticoagulant, Eliquis, which necessitates biannual blood work to monitor kidney function; she will complete this within the next few weeks. She has received her flu and tetanus vaccinations but has yet to receive the shingles vaccine due to ongoing discussions. Additionally, the patient takes Vitamin B12 and will require blood work prior to her next course. [facility] Medical History (Updated 08/14/24 @ 09:04 by Josse Herndon MD) Breast cancer screening by mammogram Colon cancer screening Obesity (BMI 30-39.9) Age-related osteoporosis without current pathological fracture Cholelithiasis Type 2 diabetes mellitus with hyperglycemia Hypercholesterolemia Bipolar disorder History of pulmonary embolism Surgical History Hx of colonoscopy History of section Family History Father Lung cancer Mother Chronic mental illness Dementia Social History (Updated 05/02/24 @ 11:50 by Josse Herndon MD) Household Members: Spouse Housing: House Are you a primary memory care director to a significant other at home: No Do you presently have visiting nurse or other home services: No Alcohol intake: current Alcohol intake frequency: holidays/special occasions only Comment: once Q 6 months 1 glass Patient Tobacco Use Status: Former Tobacco user Tobacco use type: Cigarette Years Smoked: stopped 30 years old e-Cigarette/Vaping Use: Never Used Second Hand Smoke Exposure: No service: No Current occupational status: retired Current occupational exposures/hazards: No Cognitive needs: No Hearing needs: No Vision needs: Yes Questionnaire PHQ-9 Over the last 2 weeks, how often have you been bothered by any of the following problems? 1. Little interest or pleasure in doing things: not at all 2. Feeling down, depressed, or hopeless: not at all 3. Trouble falling or staying asleep, or sleeping too much: not at all 4. Feeling tired or having little energy: several days 5. Poor appetite or overeating: not at all 6. Feeling bad about yourself - or that you are a failure or have let yourself or your family down: not at all 7. Trouble concentrating on things, such as reading the newspaper or watching television: not at all 8. Moving or speaking so slowly that other people could have noticed. Or the opposite - being so fidgety or restless that you have been moving around a lot more than usual: not at all 9. Thoughts that you would be better off or of hurting yourself in some way: not at all Total score: 1 Depression Screening Interpretation: Positive Depression Screening Done: Yes Source: Developed by Drs. Tu Hdz, Ruth Wolf, Connor Bennett and colleagues, with an educational nighat from [employer]. Thrive Questionnaire Date Thrive assessed: 08/14/24 I am a: Patient What is your living situation today?: I choose not to answer this question Within the past 12 months, did the food you bought not last and you didn't have the money to get more?: I choose not to answer this question Within the past 12 months, did you worry whether your food would run out before you got money to buy more?: I choose not to answer this question Do you have trouble paying for medicines?: I choose not to answer this question Do you have trouble getting transportation to medical appointments?: No Do you have trouble paying your heating and electricity bill?: I choose not to answer this question Do you have trouble taking care of your child, family member or friend?: No Do you have trouble with day-to-day activities such as bathing, preparing meals, shopping, managing finances, etc.?: No Are you currently unemployed and looking for a job?: I choose not to answer this question Are you interested in more education?: I choose not to answer this question Please select the resources that you would like help with: None Currently or been in a relationship where the following occur: I choose not to answer THRIVE Score: 0 AUDIT C Alcohol Use Questionnaire (AUDIT-C) 2. How many drinks containing alcohol do you have on a typical day when you are drinking?: 1 or 2 3. How often do you have six or more drinks on one occasion?: Never Total Score: 0 TRAE-7 AMB Questionnaire TRAE-7 Date TRAE - 7 assessed: 08/14/24 Feeling nervous, anxious, or on edge: 2 = More than half the days Not being able to stop or control worryin = Not at all Worrying too much about different things: 0 = Not at all Trouble relaxin = Not at all Being so restless that it is hard to sit still: 0 = Not at all Becoming easily annoyed or irritable: 2 = More than half the days Feeling afraid as if something awful might happen: 0 = Not at all Total TRAE-7 score (0-4 normal; 5-9 mild; 10-14 moderate; 15-21 severe): 4 Source: Developed by Drs. Tu Hdz, Ruth Wolf, Connor Bennett and colleagues, with an educational nighat from [employer]. Physical exam (Primary Care) Vital Signs: Last Vital Signs Pulse 77 08/14/24 08:51 BP 134/62 08/14/24 08:51 Pulse Ox 98 08/14/24 08:51 Oxygen Delivery Method Room Air 08/14/24 08:51 BMI result Body Mass Index 27.5 Tobacco/Smoking Status: Tobacco use Status Tobacco use date assessed 08/14/24 08/14/24 08:53 Patient Tobacco Use Status Former Tobacco user 08/14/24 08:53 Tobacco use type Cigarette 08/14/24 08:53 e-Cigarette/Vaping Use Never Used 08/14/24 08:53 PHQ-9: PHQ-9 Score PHQ-9: Total score 1 08/14/24 09:05 Depression Screening Interpretation: Positive Thrive Assessment: Date of Thrive Assessment Date Thrive assessed 08/14/24 08/14/24 08:53 Currently or been in a relationship where the following occur: I choose not to answer Const General: alert; No acute distress Eyes Conjunctivae: conjunctivae normal Resp Auscultation: clear to auscultation bilaterally Cardio Rate: regular rate Rhythm: regular rhythm GI Inspection: Yes normal to inspection Extrem General: Yes normal to inspection and No edema Results AMB Hemoglobin A1c AMB Hemoglobin A1c 6.0 % Last Edit by Lucita Mann CMA on 08/14/24 09:05 Results Reviewed Results Reviewed: Laboratory Last Values Hgb A1c (Clinic) 6.0 % (4.0-6.0) 08/14/24 09:04 Coding Level of Care Code Est Pt Level 4 (34121) Complex EM visit Add On G2211 Diagnoses Type 2 diabetes mellitus with hyperglycemia, without long-term current use of insulin E11.65 Diabetes mellitus [facility] insulin use: without continuous churn buttermaker use Hypercholesterolemia E78.00 Bipolar affective disorder, currently depressed, moderate F31.32 Active/Remission status: currently active Current bipolar episode type: depressed Current episode severity: moderate Osteopenia M85.80 Breast cancer screening by mammogram Z12.31 Assessment & Plan Assessment & Plan (1) Type 2 diabetes mellitus with hyperglycemia: Comment: Dr. Hahn. Dr. Paula Lanier Code(s): E11.65 - Type 2 diabetes mellitus with hyperglycemia Category: Medical Qualifiers: Diabetes mellitus continuous churn buttermaker insulin use: without [facility] use Qualified Code(s): E11.65 - Type 2 diabetes mellitus with hyperglycemia (2) Hypercholesterolemia: Code(s): E78.00 - Pure hypercholesterolemia, unspecified Category: Medical (3) Bipolar disorder: Comment: gurpreet Martinez Q 2 weeks Code(s): F31.9 - Bipolar disorder, unspecified Category: Medical Qualifiers: Active/Remission status: currently active Current bipolar episode type: depressed Current episode severity: moderate Qualified Code(s): F31.32 - Bipolar disorder, current episode depressed, moderate (4) Osteopenia: Comment: 03/2023 Code(s): M85.80 - Other specified disorders of bone density and structure, unspecified site Category: Medical (5) Breast cancer screening by mammogram: Code(s): Z12.31 - Encounter for screening mammogram for malignant neoplasm of breast Category: Medical Plan - Continue current management of Type 2 Diabetes Mellitus with lifestyle modifications; no current need for hypoglycemic medication adjustments. - Hypertension: Maintain current regimen; no medication changes required. - Monitor hyperlipidemia with regular follow-up as per routine wellness exam. - Reinforce preventive measures against respiratory infections like influenza and assess need for additional antiviral prophylaxis if indicated. - Schedule biannual blood work for kidney function monitoring due to anticoagulation therapy with Eliquis. - Ensure mammogram completion as scheduled this month. - Reiterate recommendations for flu and tetanus vaccination and continue discussion on shingles vaccination. - Follow up with routine eye examinations and appointments with Dr. Benites in October. - Encourage ongoing hydration and healthy diet to support wellness. Orders: Orders Complete Blood Count Auto Diff 6 Months E11.65 - Type 2 diabetes mellitus with hyperglycemia Thyroid Stimulating Hormone 6 Months E11.65 - Type 2 diabetes mellitus with hyperglycemia Hemoglobin A1c 6 Months E11.65 - Type 2 diabetes mellitus with hyperglycemia Vitamin D 25-OH Total 6 Months E11.65 - Type 2 diabetes mellitus with hyperglycemia Basic Metabolic Panel Today E11.65 - Type 2 diabetes mellitus with hyperglycemia AMB Hemoglobin A1c Today Z13.9 - Encounter for screening, unspecified Comprehensive Met. Panel 6 Months E11.65 - Type 2 diabetes mellitus with hyperglycemia Creatinine Urine 6 Months E11.65 - Type 2 diabetes mellitus with hyperglycemia Microalbumin, Random (w Creat) 6 Months E11.65 - Type 2 diabetes mellitus with hyperglycemia Free T4 (Free Thyroxine) 6 Months E11.65 - Type 2 diabetes mellitus with hyperglycemia Vitamin B12 and Folate 6 Months E11.65 - Type 2 diabetes mellitus with hyperglycemia Lipid Panel 6 Months E11.65 - Type 2 diabetes mellitus with hyperglycemia, E78.00 - Pure hypercholesterolemia, unspecified
[2024-08-14 08:51] VITALS: BP 134/62; PULSE 77; O2SAT 98; BMI 27.5
== END 2024-08-14 09:19 | disposition home or self-care (01) ==
PROVIDERS: PCP Internal Medicine; Visit Provider Internal Medicine
DX: E11.65 Type 2 diabetes mellitus with hyperglycemia (principal); E78.00 Pure hypercholesterolemia, unspecified; F31.32 Bipolar disorder, current episode depressed, moderate; M85.80 Other specified disorders of bone density and structure, unspecified site; Z12.31 Encounter for screening mammogram for malignant neoplasm of breast; Z13.9 Encounter for screening, unspecified

== ENCOUNTER → 2024-08-14 08:33 | Outpatient (BNVA) | payer MEDICARE, BC, SELFPAY | PROVIDERS: PCP Internal Medicine; Visit Provider Internal Medicine | DX: E11.65 Type 2 diabetes mellitus with hyperglycemia (principal); E78.00 Pure hypercholesterolemia, unspecified; F31.32 Bipolar disorder, current episode depressed, moderate; M85.80 Other specified disorders of bone density and structure, unspecified site | CPT/HCPCS: 83036; 96127; 99212 ==

== ENCOUNTER 2024-09-08 10:25 | Outpatient (REF) | payer MEDICARE, BC, SELFPAY ==
[2024-09-08 12:10] LABS: Anion Gap 11 (12-20); Blood Urea Nitrogen 22 mg/dL (9-16); Calcium 9.7 mg/dL (8.4-10.2); Carbon Dioxide 24 mmol/L (22-29); Chloride 108 mmol/L (96-108); Estimated Glomerular Filt Rate > 60; Glucose Random 88 mg/dL (60-115); Potassium 4.1 mmol/L (3.3-5.1); Sodium 139 mmol/L (135-145)
== END 2024-09-08 10:26 | disposition home or self-care (01) ==
LOC: HO.LAB 10:25
PROVIDERS: PCP Internal Medicine; Visit Provider Internal Medicine
DX: E11.65 Type 2 diabetes mellitus with hyperglycemia (principal)
CPT/HCPCS: 36415; 80048

== ENCOUNTER 2024-10-31 12:29 | Outpatient (AMB) | payer MEDICARE, BC, SELFPAY ==
[2024-10-31 13:02] VITALS: BP 132/70; PULSE 115; TEMP 36.2; O2SAT 96; BMI 27.9
--- NOTE | 2024-10-31 13:02 | A.OFFPC_ITS ---
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 Required: No Accompanied by: Self / Same As Patient Allergies levomilnacipran [Fetzima] Allergy (Unknown, Verified 10/31/24 13:13) Unknown sertraline [Zoloft] Allergy (Unknown, Verified 10/31/24 13:13) Unknown vortioxetine [From Brintellix] Allergy (Unknown, Verified 10/31/24 13:13) Unknown Medication List - Last Reconciled 10/31/24 by Josse Herndon MD apixaban (Eliquis) 5 mg PO BID cholecalciferol (vitamin D3) 25 mcg PO DAILY cyanocobalamin (vitamin B-12) 1,000 mcg PO DAILY cyclobenzaprine 5 mg PO BEDTIME PRN fenofibrate 160 mg PO DAILY 90 days lisinopril 2.5 mg PO DAILY nystatin 1 appl topical BID simvastatin 40 mg PO BEDTIME Tobacco use date assessed: 08/14/24 Fall risk assessment: No Falls in past year Last assessed Fall Risk: 10/31/24 Dental Screening Dental Screen Date: 08/14/24 [facility] Medical History (Updated 10/31/24 @ 13:33 by Josse Herndon MD) Breast cancer screening by mammogram Colon cancer screening Obesity (BMI 30-39.9) Age-related osteoporosis without current pathological fracture Cholelithiasis Type 2 diabetes mellitus with hyperglycemia Hypercholesterolemia Bipolar disorder History of pulmonary embolism Surgical History Hx of colonoscopy History of section Family History Father Lung cancer Mother Chronic mental illness Dementia Social History Household Members: Spouse Housing: House Are you a primary intensive care specialist to a significant other at home: No Do you presently have visiting nurse or other home services: No Alcohol intake: current Alcohol intake frequency: holidays/special occasions only Comment: once Q 6 months 1 glass Patient Tobacco Use Status: Former Tobacco user Tobacco use type: Cigarette Years Smoked: stopped 30 years old e-Cigarette/Vaping Use: Never Used Second Hand Smoke Exposure: No service: No Current occupational status: retired Current occupational exposures/hazards: No Cognitive needs: No Hearing needs: No Vision needs: Yes Questionnaire Thrive Questionnaire Date Thrive assessed: 08/14/24 TRAE-7 AMB Questionnaire TRAE-7 Date TRAE - 7 assessed: 08/14/24 Source: Developed by Drs. Tu Hdz, Ruth Wolf, Connor Bennett and colleagues, with an educational nighat from [employer] Physical exam (Primary Care) Vital Signs: Last Vital Signs Temp 97.1 F 10/31/24 13:02 Pulse 115 H 10/31/24 13:02 BP 132/70 10/31/24 13:02 Pulse Ox 96 10/31/24 13:02 Oxygen Delivery Method Room Air 10/31/24 13:02 BMI result Body Mass Index 27.9 Tobacco/Smoking Status: Tobacco use Status Tobacco use date assessed 08/14/24 10/31/24 13:02 Patient Tobacco Use Status Former Tobacco user 10/31/24 13:02 Tobacco use type Cigarette 10/31/24 13:02 e-Cigarette/Vaping Use Never Used 10/31/24 13:02 Thrive Assessment: Date of Thrive Assessment Date Thrive assessed 08/14/24 10/31/24 13:02 Const General: alert; No acute distress Eyes Conjunctivae: conjunctivae normal Resp Auscultation: clear to auscultation bilaterally Cardio Rate: regular rate Rhythm: regular rhythm GI Inspection: Yes normal to inspection Extrem General: Yes normal to inspection and No edema Results AMB Urinalysis Dipstick UR Leukocytes Negative Last Edit by DEBORAH Lara on 10/31/24 13:16 UR Nitrite Negative Last Edit by DEBORAH Lara on 10/31/24 13:16 UR Urobilinogen Normal Last Edit by DEBORAH Lara on 10/31/24 13:16 UR Protein Negative Last Edit by DEBORAH Lara on 10/31/24 13:16 UR Ph 6.0 Last Edit by DEBORAH Lara on 10/31/24 13:16 UR Blood Negative Last Edit by DEBORAH Lara on 10/31/24 13:16 UR Specific [place] 1.030 Last Edit by DEBORAH Lara on 10/31/24 13:16 UR Ketone Negative Last Edit by DEBORAH Lara on 10/31/24 13:16 UR Bilirubin Negative Last Edit by DEBORAH Lara on 10/31/24 13:16 UR Glucose Negative Last Edit by DEBORAH Lara on 10/31/24 13:16 Results Reviewed Results Reviewed: Laboratory Last Values Urine pH (Clinic) 6.0 10/31/24 13:14 Specific [place] (Clinic) 1.030 10/31/24 13:14 Ur Protein (Clinic) Negative 10/31/24 13:14 Ur Ketones (Clinic) Negative 10/31/24 13:14 Urine Blood (Clinic) Negative 10/31/24 13:14 Urine Nitrite Negative 10/31/24 13:14 Urine Bilirubin (Clinic) Negative 10/31/24 13:14 Urobilinogen (Clinic) Normal 10/31/24 13:14 Leukocyte Esterase (Clinic) Negative 10/31/24 13:14 Urine Glucose (Clinic) Negative 10/31/24 13:14 Coding Level of Care Code Est Pt Level 4 (29449) Complex EM visit Add On G2211 Diagnoses Type 2 diabetes mellitus with hyperglycemia, without long-term current use of insulin E11.65 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 Hahn. Dr. Paula Lanier Code(s): E11.65 - Type 2 diabetes mellitus with hyperglycemia Category: Medical Qualifiers: Diabetes mellitus prison insulin use: without middle or intermediate school principal use Qualified Code(s): E11.65 - Type 2 diabetes mellitus with hyperglycemia Plan: Decrease the amount of carbohydrate intake, pasta, bread, rice and potatoes are all sugar and that is aside from all the sweet stuff, remember that fruits are good but they are Sweet also. Hemoglobin A1c goal of less than 7.0 patient is diet controlled (2) Hypercholesterolemia: Code(s): E78.00 - Pure hypercholesterolemia, unspecified Category: Medical Plan: Avoid fried foods, chicken skin, eggs, butter margarine, pastries and meat. 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 (5) Overweight (BMI 25.0-29.9): Code(s): E66.3 - Overweight Category: Medical Plan: Continue with diet and exercise (6) Sciatic nerve pain: Comment: left Code(s): M54.30 - Sciatica, unspecified side Category: Medical Plan History of Present Illness The patient is a 74-year-old female presenting for routine management of chronic conditions, including diabetes mellitus, hypercholesterolemia, and to address a complaint of sciatica-related pain. The patient?s history of pulmonary embolism is currently managed with anticoagulation therapy. Her hemoglobin A1c goal remains below 7.0% through dietary management, and the most recent cholesterol readings show an LDL level of 62 mg/dL, indicating successful maintenance within target ranges. The patient reports experiencing sciatica-like symptoms after an incident involving stepping down post-shower, with pain originating in the buttocks and radiating down the left leg. This pain is intensified by prolonged sitting or lying on one side. While muscle relaxants were considered, concerns regarding sedation were noted. Urinalysis revealed no abnormalities, and no urinary tract symptoms such as dysuria were reported. The patient's lifestyle is generally active, albeit with increased sedentary habits during colder months. Health Maintenance - Hemoglobin A1c goal of less than 7.0% for diabetes management through diet control - LDL cholesterol goal of less than 100 mg/dL - Routine follow-up with ophthalmology at [facility] - Mammogram performed in August 2024 - Bone density test updated March 2023 - Complete blood work completed February 2024 with normal results - Follow-up blood work biannually due to anticoagulation therapy requirements Social History - Engages in outdoor activities with - Experiences increased sedentary behavior during winter months - Resides in [place], potentially seeking patient care nursing assistant in [place] Review of Systems - Musculoskeletal: Reports pain in buttocks radiating down the left leg, parti cularly when sitting. - Genitourinary: Denies dysuria or urinary problems. - Neurologic: No reports of falls or injury. Physical Exam - Musculoskeletal- Focus on left-sided buttock pain with reference to potential chiropractic intervention. Results - Labs: Hemoglobin A1c level below target; LDL cholesterol at 62 mg/dL as of February 2024 - Urine analysis: Normal results, both microscopy and routine drip tests Plan 1. 0% and LDL levels suitably controlled. A proactive approach for sciatica includes patient care nursing assistant while muscle relaxers are discretionary. Continued biannual blood work shall monitor her anticoagulation levels, with established follow-up protocols in place. Health maintenance procedures remain up to date, although consideration for a shingles vaccine is recommended.: Patient was informed and verbally consented to the use of an ambient scribe for clinic note documentation during this visit. Discussion Notes Patient Instructions - Continue current dietary management to maintain A1c and cholesterol goals. - Consider seeing a chiropractor for sciatica pain management and avoiding prolonged sitting. - Only take the prescribed muscle relaxant in the evening, if needed. - Ensure biannual blood work is completed for anticoagulation therapy monitoring. - Stay active indoors during colder months to prevent exacerbating sciatica symptoms. - Follow up with [facility] as scheduled. - Consider receiving shingles vaccination. Orders: Orders AMB Urinalysis Dipstick Today R39.9 - Unspecified symptoms and signs involving the genitourinary system Referrals Chiropractic Referral M54.30 - Sciatica, unspecified side Medications: New cyclobenzaprine 5 mg PO BEDTIME PRN 20 tabs 0RF muscle spasm M54.30 - Sciatica, unspecified side
== END 2024-10-31 13:40 | disposition home or self-care (01) ==
LOC: HO.HMCH 12:30
PROVIDERS: PCP Internal Medicine; Visit Provider Internal Medicine
DX: E11.65 Type 2 diabetes mellitus with hyperglycemia (principal); E78.00 Pure hypercholesterolemia, unspecified; F31.32 Bipolar disorder, current episode depressed, moderate; Z86.711 Personal history of pulmonary embolism; E66.3 Overweight; M54.30 Sciatica, unspecified side; R39.9 Unspecified symptoms and signs involving the genitourinary system

== ENCOUNTER → 2024-10-31 12:29 | Outpatient (BNVA) | payer MEDICARE, BC, SELFPAY | PROVIDERS: PCP Internal Medicine; Visit Provider Internal Medicine | DX: E11.65 Type 2 diabetes mellitus with hyperglycemia (principal); E78.00 Pure hypercholesterolemia, unspecified; F31.32 Bipolar disorder, current episode depressed, moderate; E66.3 Overweight; M54.30 Sciatica, unspecified side; Z86.711 Personal history of pulmonary embolism | CPT/HCPCS: 81002; 99212 ==

== ENCOUNTER 2025-03-19 06:19 | Outpatient (REF) | payer MEDICARE, BC, SELFPAY ==
[2025-03-19 06:39] LABS: MANUAL DIFF FLAG NO
[2025-03-19 07:33] LABS: Hematocrit 37.7 % (37.0-47.0); Hemoglobin 12.0 g/dl (12.0-16.0); Imm Gran Abs Auto 0.05 X10*3/uL (0.00-0.03); Imm Gran Pct Auto 0.8 % (0.0-0.4); Lymphocytes Absolute Auto 1.2 X10*3/uL (1.2-4.9); Mean Corpuscular HGB Conc 31.8 g/dl (31.0-35.0); Mean Corpuscular Hemoglobin 29.9 pg (27.0-33.0); Mean Corpuscular Volume 94.0 fL (80.0-98.0); NRBC Abs Auto 0.000 X10*3/uL (0.0-0.012); NRBC Pct Auto 0.0 /100WBC (0.0-0.2); Platelet Count 302 X10*3/uL (160-400); Red Blood Count 4.01 X10*6/uL (4.20-5.50); White Blood Count 6.1 X10*3/uL (4.8-10.8)
[2025-03-19 07:56] LABS: Hemoglobin A1C 132.0180 umol/L; Total Hemoglobin (HGBA1C) 3201.1077 umol/L
[2025-03-19 08:29] LABS: Alanine Aminotransferase 12 U/L (0-31); Albumin Level 4.1 g/dL (3.5-5.0); Alkaline Phosphatase 51 U/L (39-117); Anion Gap 13 (12-20); Aspartate Amino Transferase 25 U/L (5-31); Blood Urea Nitrogen 17 mg/dL (9-16); Calcium 9.4 mg/dL (8.4-10.2); Carbon Dioxide 25 mmol/L (22-29); Chloride 104 mmol/L (96-108); Cholesterol 172 mg/dL (<200); Estimated Glomerular Filt Rate 51; HDL Cholesterol 49 mg/dL (>40); Potassium 4.9 mmol/L (3.3-5.1); Sodium 137 mmol/L (135-145); Total Protein 7.6 g/dL (6.5-8.0); Triglycerides 144 mg/dL (<150)
[2025-03-19 08:35] LABS: Free T4 (Free Thyroxine) 1.02 ng/dL (0.71-1.85); Thyroid Stimulating Hormone 2.73 uIU/mL (0.32-4.0)
[2025-03-19 08:55] LABS: Folate 6.9 ng/mL (> or = 4.0); Vitamin B12 312 pg/mL (200-900)
== END 2025-03-19 06:20 | disposition home or self-care (01) ==
LOC: HO.LAB 06:19
PROVIDERS: PCP Internal Medicine; Visit Provider Internal Medicine
DX: E11.65 Type 2 diabetes mellitus with hyperglycemia (principal); E78.00 Pure hypercholesterolemia, unspecified
CPT/HCPCS: 36415; 80053; 80061; 82043; 82306; 82570; 82607; 82746; 83036; 84439; 84443; 85025

== ENCOUNTER 2025-03-26 13:20 | Outpatient (AMB) | payer MEDICARE, BC, SELFPAY ==
--- OUTSIDE RECORDS SUMMARY | 2023-11-02 05:00 | XMS_ITS ---
Author Organization [facility] Address [address] [place] [id number] Care Team Providers Care Public Accountant Name Role Phone Josse Herndon MD Primary Care Provider Umer Isbell Jr [phone] REASON FOR VISIT screening colon Encounters Encounter Location Date Provider Diagnosis [facility] Outpatient [address] [place] [address] [id number] 11/02/2023 Umer Richter Jr Encounter for screening colonoscopy Z12.11 and Family history of colon cancer Z80.0 Assessments Encounter Date Diagnosis (ICD Code) Assessment Notes Treatment Notes Treatment Clinical Notes Section Notes 11/02/2023 Encounter for screening colonoscopy (ICD-10 - Z12.11) 11/02/2023 Family history of colon cancer (ICD-10 - Z80.0) Plan Of Treatment No Information Progress Notes * ZAID GARCIA LDOB:[birth year] (74 yo F)Acc No.[id number]:11/02/2023 COLON WITH MAC Patient: ZAID STODDARD Provider: Carlos Alberto Richter MD :1950 A ge:73 Y S ex:Female Date:11/02/2023 Address:[address] [place], [place] [id number] Pcp:Josse Herndon MD Subjective: * Chief Complaints: * 1 . Screening colon. * Medical History: Objective: * Vitals: Assessment: * Assessment: 1. E ncounter for screening colonoscopy - Z12.11 (Primary) 2 . F amily history of colon cancer - Z80.0 Plan: * Treatment: * Procedure Codes: G 0105 COLOREC CANCR SCR; COLNSCPY HI RISK, 0529F INTRVL 3+YRS PTS CLNSCP DOCD, 0528F RCMND FLW-UP 10 YRS DOCD, Modifiers: 1P * * The named appointment provid er may or may not be the originator of this progress note, and it is not deemed complete until electronically signed by the appointment provider. Sign off status: Pending * Provider: Carlos Alberto Richter MD Date: 0 11/02/2023 Generated for Jarad jon/[place]/Sandraitting on: 0 03/26/2025 01:32 PM EDT
--- NOTE | 2025-03-26 13:28 | MHC.PC.OV ---
Vital Signs 03/26/25 13:30 Height 5 ft 3 in Weight 158 lb 6 oz BMI 28.1 BP 128/58 L Blood Pressure Location Lt brachial Position Sitting Pulse 90 Pulse Oximetry (%) 97 Intake Visit Reasons: 6mth f/u [employer] Consultant Required: No Accompanied by: Self / Same As Patient Allergies levomilnacipran (Fetzima) Allergy (Unknown, Verified 03/26/25 13:29) Unknown sertraline (Zoloft) Allergy (Unknown, Verified 03/26/25 13:29) Unknown vortioxetine (From Brintellix) Allergy (Unknown, Verified 03/26/25 13:29) Unknown Tobacco use date assessed: 03/26/25 Fall risk assessment: No Falls in past year Last assessed Fall Risk: 03/26/25 Dental Screening Dental Screen Date: 03/26/25 Did you have a dental visit in the last 12 months?: Yes Did you have a dental problem in the last 6 months where you did not have access to dental care?: No Was dental information given to patient?: Patient has dentist HPI 6mth f/u HPI Details states sob onexertion [facility] Medical History Breast cancer screening by mammogram Colon cancer screening Obesity (BMI 30-39.9) Age-related osteoporosis without current pathological fracture Cholelithiasis Type 2 diabetes mellitus with hyperglycemia Hypercholesterolemia Bipolar disorder History of pulmonary embolism Surgical History Hx of colonoscopy History of section Family History Father Lung cancer Mother Chronic mental illness Dementia Social History Household Members: Spouse Housing: House Are you a primary rn coronary care unit to a significant other at home: No Do you presently have visiting nurse or other home services: No Alcohol intake: current Alcohol intake frequency: holidays/special occasions only Comment: once Q 6 months 1 glass Patient Tobacco Use Status: Former Tobacco user Tobacco use type: Cigarette Years Smoked: stopped 30 years old e-Cigarette/Vaping Use: Never Used Second Hand Smoke Exposure: No service: No Current occupational status: retired Current occupational exposures/hazards: No Cognitive needs: No Hearing needs: No Vision needs: Yes Questionnaire PHQ-9 Over the last 2 weeks, how often have you been bothered by any of the following problems? 1. Little interest or pleasure in doing things: not at all 2. Feeling down, depressed, or hopeless: not at all 3. Trouble falling or staying asleep, or sleeping too much: not at all 4. Feeling tired or having little energy: more than half the days 5. Poor appetite or overeating: not at all 6. Feeling bad about yourself - or that you are a failure or have let yourself or your family down: more than half the days 7. Trouble concentrating on things, such as reading the newspaper or watching television: not at all 8. Moving or speaking so slowly that other people could have noticed. Or the opposite - being so fidgety or restless that you have been moving around a lot more than usual: not at all 9. Thoughts that you would be better off or of hurting yourself in some way: not at all Total score: 4 38598 - PHQ-9 Billing: Yes Source: Developed by Drs. Tu Hdz, Ruth Wolf, Connor Bennett and colleagues, with an educational nighat from [employer]. Thrive Questionnaire Date Thrive assessed: 08/14/24 I am a: Patient What is your living situation today?: I have a steady place to live Within the past 12 months, did the food you bought not last and you didn't have the money to get more?: I choose not to answer this question Within the past 12 months, did you worry whether your food would run out before you got money to buy more?: I choose not to answer this question Do you have trouble paying for medicines?: I choose not to answer this question Do you have trouble getting transportation to medical appointments?: No Do you have trouble paying your heating and electricity bill?: No Do you have trouble taking care of your child, family member or friend?: No Do you have trouble with day-to-day activities such as bathing, preparing meals, shopping, managing finances, etc.?: No Are you currently unemployed and looking for a job?: I choose not to answer this question Are you interested in more education?: I choose not to answer this question Please select the resources that you would like help with: None Currently or been in a relationship where the following occur: No concerns reported THRIVE Score: 0 AUDIT C Alcohol Use Questionnaire (AUDIT-C) 1. How often do you have a drink containing alcohol?: Monthly or less Total Score: 1 TRAE-7 AMB Questionnaire TRAE-7 Date TRAE - 7 assessed: 03/26/25 Feeling nervous, anxious, or on edge: 0 = Not at all Not being able to stop or control worryin = Not at all Worrying too much about different things: 0 = Not at all Trouble relaxin = Not at all Being so restless that it is hard to sit still: 0 = Not at all Becoming easily annoyed or irritable: 0 = Not at all Feeling afraid as if something awful might happen: 0 = Not at all Total TRAE-7 score (0-4 normal; 5-9 mild; 10-14 moderate; 15-21 severe): 0 Source: Developed by Drs. uT Hdz, Ruth Wolf, Connor Bennett and colleagues, with an educational nighat from [employer]. Physical exam (Primary Care) Vital Signs: Last Vital Signs Pulse 90 03/26/25 13:30 BP 128/58 L 03/26/25 13:30 Pulse Ox 97 03/26/25 13:30 BMI result Body Mass Index 28.1 Tobacco/Smoking Status: Tobacco use Status Tobacco use date assessed 03/26/25 03/26/25 13:35 Patient Tobacco Use Status Former Tobacco user 03/26/25 13:35 Tobacco use type Cigarette 03/26/25 13:35 e-Cigarette/Vaping Use Never Used 03/26/25 13:35 PHQ-9: PHQ-9 Score PHQ-9: Total score 4 03/26/25 13:54 Thrive Assessment: Date of Thrive Assessment Date Thrive assessed 08/14/24 03/26/25 13:35 Currently or been in a relationship where the following occur: No concerns reported Const General: alert; No acute distress Eyes Conjunctivae: conjunctivae normal Resp Auscultation: clear to auscultation bilaterally Cardio Rate: regular rate Rhythm: regular rhythm GI Inspection: Yes normal to inspection Extrem General: Yes normal to inspection and No edema Coding Level of Care Code Est Pt Level 4 (03495) Complex EM visit Add On G2211 Diagnoses Type 2 diabetes mellitus with hyperglycemia, without long-term current use of insulin E11.65 Diabetes mellitus intermediate teacher insulin use: without penitentiary use Hypercholesterolemia E78.00 History of pulmonary embolism Z86.711 Osteopenia M85.80 Overweight (BMI 25.0-29.9) E66.3 Bipolar affective disorder, currently depressed, moderate F31.32 Active/Remission status: currently active Current bipolar episode type: depressed Current episode severity: moderate SOB (shortness of breath) on exertion R06.02 Additional Codes PHQ-9 - 03489 - PHQ-9 Billing: Yes ([id number]) Assessment & Plan Assessment & Plan (1) Type 2 diabetes mellitus with hyperglycemia: Comment: Dr. Hahn. Dr. Paula Lanier Code(s): E11.65 - Type 2 diabetes mellitus with hyperglycemia Category: Medical Qualifiers: Diabetes mellitus penitentiary insulin use: without penitentiary use Qualified Code(s): E11.65 - Type 2 diabetes mellitus with hyperglycemia Plan: Decrease the amount of carbohydrate intake, pasta, bread, rice and potatoes are all sugar and that is aside from all the sweet stuff, remember that fruits are good but they are Sweet also. Hemoglobin A1c goal of less than 6.5. Patient is diet controlled (2) Hypercholesterolemia: Code(s): E78.00 - Pure hypercholesterolemia, unspecified Category: Medical Plan: Avoid fried foods, chicken skin, eggs, butter margarine, pastries and meat. 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 Code(s): Z86.711 - Personal history of pulmonary embolism Category: Medical Plan: Continue with anticoagulation twice a day year blood work recommended (4) Osteopenia: Comment: 03/2023 Code(s): M85.80 - Other specified disorders of bone density and structure, unspecified site Category: Medical Plan: Discussed about follow-up bone density (5) Overweight (BMI 25.0-29.9): Code(s): E66.3 - Overweight Category: Medical Plan: Diet and exercise (6) Bipolar disorder: Comment: edward Martinez Q 2 weeks Code(s): F31.9 - Bipolar disorder, unspecified Category: Medical Qualifiers: Active/Remission status: currently active Current bipolar episode type: depressed Current episode severity: moderate Qualified Code(s): F31.32 - Bipolar disorder, current episode depressed, moderate Plan: Continue with counseling and therapy (7) SOB (shortness of breath) on exertion: Code(s): R06.02 - Shortness of breath Category: Medical Plan History of Present Illness The patient is a 74-year-old female presenting with dyspnea on exertion and fatigue. She reports that her breathing has become more difficult, particularly when climbing stairs, which has been a persistent issue due to her historically weak lungs. There is no associated chest pain or wheezing, but she experiences discomfort when exposed to cold air from air conditioning. The patient has a history of pulmonary embolism, bipolar disorder, hypercholesterolemia, and diabetes mellitus. She also has a history of lithium toxicity and osteopenia, with the last bone density test conducted in March 2023. Her blood work in March showed normal blood counts, normal electrolytes, and a creatinine level of 1.05. The patient's fasting blood sugar was elevated at 119 mg/dL, but her hemoglobin A1c was 5.9%, indicating good control of her diabetes. Her LDL cholesterol was 95 mg/dL, and liver function tests were normal. Vitamin D levels were noted to be low, while B12 and folic acid levels were normal. Health Maintenance - Colonoscopy up to date as of October 2023 - Mammogram up to date as of August 2024 - Tetanus vaccination up to date - Shingles vaccination discussed Social History - Reports anxiety and fatigue impacting daily activities - Previously smoked, quit 30 years ago Review of Systems - Respiratory: Reports dyspnea on exertion, denies wheezing or chest pain. - Cardiovascular: Denies chest pain, reports palpitations when at rest. - Neurological: Reports fatigue, denies dizziness or headaches. Physical Exam Results - Labs: Normal blood count, creatinine 1.05 mg/dL, elevated fasting blood sugar 119 mg/dL, hemoglobin A1c 5.9%, LDL cholesterol 95 mg/dL, normal liver function, low vitamin D, normal B12 and folic acid. Plan The plan includes further evaluation of the patient's dyspnea on exertion and fatigue. A chest x-ray and lung function test are recommended to assess pulmonary status, given the history of pulmonary embolism and current respiratory symptoms. Additionally, a stress test is advised to rule out cardiac causes of dyspnea, considering the patient's history of hypercholesterolemia and diabetes mellitus. For diabetes management, the goal is to maintain hemoglobin A1c below 6.5%, with current control being satisfactory at 5.9%. The patient is advised to continue dietary management to control blood sugar levels. For hypercholesterolemia, the LDL goal is less than 100 mg/dL, and the patient is currently on fenofibrate and simvastatin. The patient is to continue anticoagulation therapy due to the history of pulmonary embolism, with biannual blood work recommended. Follow-up bone density testing is discussed to monitor osteopenia. Counseling and therapy are to be continued for bipolar disorder and anxiety management. Patient was informed and verbally consented to the use of an ambient scribe for clinic note documentation during this visit. Discussion Notes I discussed with the patient the importance of evaluating her dyspnea and fatigue through a chest x-ray and lung function test. We also talked about the need for a stress test to rule out cardiac issues, given her history of hypercholesterolemia and diabetes. I emphasized maintaining her diabetes management with a hemoglobin A1c goal of less than 6.5% and continuing her current cholesterol medications. We reviewed the necessity of ongoing anticoagulation therapy and the importance of regular blood work. I advised her to continue with counseling and therapy for her bipolar disorder and anxiety. We also discussed the importance of keeping up with her vaccinations, including the shingles shot. Patient Instructions - Schedule and complete a chest x-ray and lung function test. - Attend a stress test appointment when scheduled. - Maintain a diet to keep blood sugar levels controlled. - Continue taking fenofibrate and simvastatin as prescribed. - Continue anticoagulation therapy and have blood work done twice a year. - Follow up on bone density testing as discussed. - Continue with counseling and therapy sessions. - Consider getting the shingles vaccination. Orders: Orders XR chest 2V Today R06.02 - Shortness of breath PFT pulmonary function test Today R06.02 - Shortness of breath CA stress test Today R06.02 - Shortness of breath
[2025-03-26 13:30] VITALS: BP 128/58; PULSE 90; O2SAT 97; BMI 28.1
--- OUTSIDE RECORDS SUMMARY | 2025-03-26 13:32 | XMS_ITS | Encounter Summary ---
Author Organization Located Within [facility] Address [address] [place] [address] Phone Care Team Providers Care Life Science Teacher Name Role Phone Josse Herndon MD Primary Care Provider [phone] Encounter Details Date Type Department Care Team (Latest Contact Info) Description 07/17/2017 Transcribe Orders [facility] [address] [place] [address] Mora James, DO [address] [place] [address] Thrombosis of left peroneal vein (Primary Dx) Social History Tobacco Use Types Packs/Day Years Used Date Smoking Tobacco: Former Smokeless Tobacco: Never Alcohol Use Standard Drinks/Week Comments No 0 (1 standard drink = 0.6 oz pur e alcohol) Comments No Sex and Gender Information Value Date Recorded Sex Assigned at Female 08/13/2017 9:38 AM EST Legal Sex Female 10:03 PM EDT Gender Identity Female 08/13/2017 9:38 AM EST Sexual Orientation Straight 08/13/2017 9: 38 AM EST documented as of this encounter Plan of Treatment Not on file documented as of this encounter Procedures Procedure Name Priority Date/Time Associated Diagnosis Comments PROTEIN C ACTIVITY Routine 07/17/2017 10 :41 AM EST Thrombosis of left peroneal vein PROTEIN S ACTIVITY Routine 07/17/2017 10 :41 AM EST Thrombosis of left peroneal vein COMPREHENSIVE METABOLIC PANEL Routine 07/17/2017 10:41 AM EST Thrombosis of left peroneal vein CBC AND DIFFERENTIAL Routine 07/17/2017 10:41 AM EST Thrombosis of left peroneal vein documented in this encounter Results * Protein S activity (07/17/2017 10:41 AM EST) Protein S Activity, P 80 65 - 160 % [facility] OF LAB MED AND PAT+ Comment: (NOTE) Anticoagulants (for example oral direct thrombin inhibitors like dabigatran, anti-Xa inhibitors like rivaroxaban, apixaban or edoxaban), heparin levels greater than 1 U/mL, inhibitors of the APTT test system (for example lupus anticoagulant), inhibitors of bovine factor V (for example antibodies that may arise in patients treated with certain bovine topical thrombin preparations) may produce a falsely normal or elevated protein S activity result. Suggest clinical correlation and if indicated consider repeat assay of protein S activity and/or antigen in the absence of anticoagulation therapy. ADDITIONAL INFORMATION This test has been modified from the vice president education's instructions. Its performance characteristics were determined by [facility] in a manner consistent with CLIA requirements. This test has not been cleared or approved by the U.S. Food and Drug Administration. Blood 07/17/2017 10:4 1 AM EST 07/17/2017 10:46 AM EST Mora James DO LAB BLOOD ORDERABLES Final Result [facility] OF LAB MED AND PAT+ [address] [place] [address] * Protein C activity (07/17/2017 10:41 AM EST) PROTEIN C ACTIVITY, P 71 70 - 150 % [facility] OF LAB MED AND PAT+ Comment: (NOTE) ADDITIONAL INFORMATION This test has been modified from the vice president education's instructions. Its performance characteristics were determined by [facility] in a manner consistent with CLIA requirements. This test has not been cleared or approved by the U.S. Food and Drug Administration. Blood 07/17/2017 10:4 1 AM EST 07/17/2017 10:46 AM EST Mora James LAB BLOOD ORDERABLES Final Result [facility] OF LAB MED AND PAT+ [address] [place] [address] * (ABNORMAL) Comprehensive metabolic panel (07/17/2017 10:41 AM EST) SODIUM 138 133 - 146 mmol/L [facility] POTASSIUM 4.2 3.3 - 5.1 mmol/L [facility] CHLORIDE 101 96 - 108 mmol/L [facility] CO2 28 21 - 35 mmol/L [facility] BUN 16 6 - 19 mg/dL [facility] CREATININE 0.90 0.5 - 1.5 mg/dL [facility] GLUCOSE 144(H) 70 - 99 mg/dL [facility] ALBUMIN 3.8(L) 3.9 - 4.8 g/dL [facility] TOTAL PROTEIN 8.1(H) 6.5 - 8.0 g/dL [facility] CALCIUM 9.4 8.4 - 10.3 mg/dL [facility] ALKALINE PHOSPHATASE 69 39 - 117 U/L [facility] TOTAL BILIRUBIN 0.2 0 - 1.2 mg/dL [facility] AST 14 0 - 37 U/L [facility] ALT 16 0 - 40 U/L [facility] GLOBULIN 4.3 1 - 4.8 g/dL [facility] EGFR >60 60 - 1000 mL/min/1.7 3m2 [facility] Comment:Abnormal if <60. If patient is -Afghan, multiply the result by 1.21. ANION GAP 13 10 - 20 mmol/L [facility] Blood 07/17/2017 10:4 1 AM EST 07/17/2017 10:47 AM EST Morakavitha James LAB BLOOD ORDERABLES Final Result [facility] [address] [place] [address] * CBC and differential (07/17/2017 10:41 AM EST) WBC 7.46 3.40 - 11.20 K/uL [facility] RBC 4.13 3.80 - 4.80 M/uL [facility] HGB 12.6 12.0 - 15.0 g/dL [facility] HCT 39.4 36.0 - 46.0 % [facility] PLT 282 130 - 400 K/uL [facility] MCV 95.4 79.0 - 98.0 fL [facility] MCH 30.5 27.0 - 34.8 pg [facility] MCHC 32.0 31.5 - 36.0 g/dL [facility] RDW 14.1 10.8 - 14.6 % [facility] MPV 11.2 9.4 - 12.4 fl [facility] NRBC 0.00 /100 WBCs [facility] ABSOLUTE NRBC 0.00 K/uL [facility] DIFF METHOD Auto [facility] NEUTS 61.6 45.30 - 77.70 % [facility] LYMPHS 28.6 12.30 - 39.70 % [facility] MONOS 5.5 4.10 - 12.80 % [facility] EOS 3.1 0 - 7.2 % [facility] BASOS 0.5 0 - 2.80 % [facility] Granulocytes, immature (%) 0.7 0.0 - 0.9 % [facility] ABSOLUTE NEUTS 4.60 1.40 - 7.70 K/uL [facility] ABSOLUTE LYMPHS 2.13 0.60 - 3.20 K/uL [facility] ABSOLUTE MONOS 0.41 0.11 - 0.59 K/uL [facility] ABSOLUTE EOS 0.23 0.01 - 0.50 K/uL [facility] ABSOLUTE BASOS 0.04 0.00 - 0.08 K/uL [facility] Granulocytes, immature 0.05 0.00 - 0.05 K/uL [facility] Blood 07/17/2017 10:4 1 AM EST 07/17/2017 10:47 AM EST Mora James DO LAB BLOOD ORDERABLES Final Result [facility] [address] [place] [address] documented in this encounter Visit Diagnoses Diagnosis Thrombosis of left peroneal vein- Primary documented in this encounter Care Teams Life Science Teacher Relationship Specialty Start Date End Date Po, Josse Roman MD [address] [place] [address] PCP - General 05/24/17 documented as of this encounter Additional Source Comments The information contained in this document represents components of the legal health record. It is not the complete legal health record.Loc[facility]
== END 2025-03-26 14:07 | disposition home or self-care (01) ==
LOC: HO.HMCH 13:21
PROVIDERS: PCP Internal Medicine; Visit Provider Internal Medicine
DX: E11.65 Type 2 diabetes mellitus with hyperglycemia (principal); F31.32 Bipolar disorder, current episode depressed, moderate; E66.3 Overweight; Z68.28 Body mass index [BMI] 28.0-28.9, adult; E78.00 Pure hypercholesterolemia, unspecified; Z86.711 Personal history of pulmonary embolism; M85.80 Other specified disorders of bone density and structure, unspecified site; R06.02 Shortness of breath

== ENCOUNTER 2025-03-26 13:20 | Outpatient (REF) | payer MEDICARE, BC, SELFPAY ==
--- NOTE | ~2025-03-26 | XR_ITS ---
EXAMINATION: XR CHEST CLINICAL INFORMATION: R06.02 - Shortness of breath COMPARISON: August 30, 2006 TECHNIQUE: 2 views of the chest were obtained. FINDINGS: No significant abnormality is noted involving the heart, lungs, mediastinum, bony thorax or soft tissues. XR/XR chest 2V IMPRESSION: No acute disease Electronically signed by: Braden Gonzalez MD 03/26/2025 02:46 PM EDT
== END 2025-03-26 13:21 | disposition home or self-care (01) ==
LOC: HO.XRAY 13:20
PROVIDERS: PCP Internal Medicine; Visit Provider Internal Medicine
DX: R06.02 Shortness of breath (principal); E11.65 Type 2 diabetes mellitus with hyperglycemia; E78.00 Pure hypercholesterolemia, unspecified; M85.80 Other specified disorders of bone density and structure, unspecified site; E66.3 Overweight; F31.32 Bipolar disorder, current episode depressed, moderate; Z86.711 Personal history of pulmonary embolism; Z87.891 Personal history of nicotine dependence
CPT/HCPCS: 71046; 96127; 99212

== ENCOUNTER → 2025-03-26 14:24 | Outpatient (BNV) | payer MEDICARE, BC, SELFPAY | PROVIDERS: PCP Internal Medicine; Visit Provider Radiology Diagnostic Radiology | DX: R06.02 Shortness of breath (principal) | CPT/HCPCS: 71046 ==

== ENCOUNTER → 2025-05-05 07:50 | Outpatient (REF) | payer MEDICARE, BC, SELFPAY ==
--- OUTSIDE RECORDS SUMMARY | 2025-05-05 07:59 | XMS_ITS | Encounter Summary ---
Author Organization [facility] Address [address] [place] [address] Phone Care Team Providers Care Medical Reception Name Role Phone Josse Herndon MD Primary Care Provider [phone] Encounter Details Date Type Department Care Team (Late st Contact Info) Description 06/18/2017 Procedure Pass [facility], Ct Scan - [address] [address] Social History Tobacco Use Types Packs/Day Years [...] on file documented as of this encounter Visit Diagnoses Not on filedocumented in this encounter Care Teams Medical Reception Relationship Specialty Start Date End Date Josse Herndon MD [address] [place] [id number] PCP - General 05/24/17 documented as of this encounter Additional Source Comments The information contained in this document represents components of the legal health record. It is not the complete legal health record.[facility]
--- OUTSIDE RECORDS SUMMARY | 2025-05-05 07:59 | XMS_ITS | Encounter Summary ---
Author Organization [facility] Address [address] [place] [address] Phone Care Team Providers Care Boat Ride Operator Name Role Phone Josse Herndon MD Primary Care Provider [phone] Encounter Details Date Type Department Care Team (Late st Contact Info) Description 02/07/2022 Procedure Pass [facility], [address] [address] Social History Tobacco Use Types Packs/Day Years [...] AM EST documented as of this encounter Functional Status * Calculated C-SSRS Risk Score (Lifetime/Recent) Answer Date of Assessment Author No Risk Indicated 02/07/2022 4:00 PM EDT Alessia Hubbard, RN * [place] Suicide Severity Rating Scale (Screener/Recent Self-Report) Question Answer Date of Assessment Author 1. Wish to be (Past 1 Month) No 02/07/2022 4:00 PM Alessia Bird, RN 2. Non-Specific Active Suici lisa Thoughts (Past 1 Month) No 02/07/2022 4:00 PM Alessia Bird, RN 6. Suicidal Behavior (Lifetime) No 2 4:00 PM EDT Alessia Hubbard RN documented as of this encounter Plan of Treatment Not on file documented as of this encounter Visit Diagnoses Not on filedocumented in this encounter Care Teams Boat Ride Operator Relationship Specialty Start Date End Date Josse Herndon MD [address] [place] [id number] PCP - General 05/24/17 documented as of this encounter Additional Source Comments The information contained in this document represents components of the legal health record. It is not the complete legal health record.[facility]
--- OUTSIDE RECORDS SUMMARY | 2025-05-05 07:59 | XMS_ITS | Encounter Summary ---
Author Organization [facility] Address [address] [place] [address] Phone Care Team Providers Care Employee Benefits Director Name Role Phone Josse Herndon MD Primary Care Provider [phone] Reason for Referral * Consultation (Routine) - Closed Specialty Diagnoses / Procedures Referred By Contlore t Referred To Contact Diagnoses Deep vein thrombosis (DVT) of lower extremity, unspecified chronicity, unspecified laterality, unspecified vein Josse Herndon MD Phone: tel: fax: [address] [address] Phone: tel: Referral ID Status Reason Start Date Expiration Date Visits Re quested Visits Authorized [id number] Closed 07/27/2020 07/27/2021 1 1 Encounter Details Date Type Department Care Team (Late st Contact Info) Description 07/27/2020 Transcribe Orders Virtual Department [address] [place] [id number] Josse Herndon MD [address] [place] [phone] Deep vein thrombosis (DVT) of lower extremity, unspecified chronicity, unspecified laterality, unspecified vein (Primary Dx) Social History Tobacco Use [...] as of this encounter Plan of Treatment Scheduled Referrals Name Type Priority Associated Diagnoses Order Schedule Ambulatory referral to [facility] Anticoagulation Clinic Outpatient Referral Routine Deep vein thrombosis (DVT) of lower extremity, unspecified chronicity, unspecified laterality, unspecified vein Ordered: 07/27/2020 documented as of this encounter Visit Diagnoses Diagnosis Deep vein thrombosis (DVT) of lower extremity, unspecified chronicity, unspecified laterality, unspecified vein- Primary documented in this encounter Care Teams Employee Benefits Director Relationship Specialty Start Date End Date Josse Herndon MD [address] [place] [address] [address] [place] [id number] PCP - General 05/24/17 documented as of this encounter Additional Source Comments The information contained in this document represents components of the legal health record. It is not the complete legal health record.[facility]
--- OUTSIDE RECORDS SUMMARY | 2025-05-05 07:59 | XMS_ITS | Encounter Summary ---
Author Organization [facility] Address [address] [place] [address] Phone Care Team Providers Care Vocational Training Director Name Role Phone Josse Herndon MD Primary Care Provider [phone] Encounter Details Date Type Department Care Team (Late st Contact Info) Description 12/22/2021 Procedure Pass [facility], Ct Scan - [address] [address] Social History Tobacco Use Types Packs/Day Years [...] Date of Assessment Author No Risk Indicated 12/23/2021 3:00 PM EDT Dayami Barrett, RN * [place] Suicide Severity Rating Scale (Screener/Recent Self-Report) Question Answer Date of Assessment Author 1. Wish to be (Past 1 Month) No 022 3:00 PM EDT Dayami Barrett, RN 2. Non-Specific Active Suici lisa Thoughts (Past 1 Month) No 12/23/2021 3:00 PM EDT Dayami Barrett, RN 6. Suicidal Behavior (Lifetime) No 2 3:00 PM EDT Dayami Barrett RN documented as of this encounter Plan of Treatment Not on file documented as of this encounter Visit Diagnoses Not on filedocumented in this encounter Care Teams Vocational Training Director Relationship Specialty Start Date End Date Josse Herndon MD [address] [facility] [address] [place] [phone] PCP - General 05/24/17 documented as of this encounter Additional Source Comments The information contained in this document represents components of the legal health record. It is not the complete legal health record.[facility]
--- OUTSIDE RECORDS SUMMARY | 2025-05-05 07:59 | XMS_ITS | Encounter Summary ---
Author Organization [facility] Address [address] [place] [address] Phone Care Team Providers Care Corporate Recruiter Name Role Phone Josse Herndon MD Primary Care Provider [phone] Reason for Referral * Consultation (Elective) - Closed Specialty Diagnoses / Procedures Referred By Carloz t Referred To Contact Diagnoses Pulmonary embolism and infarction Josse Herndon MD Phone: tel: fax: [address] [address] Phone: tel: Referral ID Status Reason Start Date Expiration Date Visits Re quested Visits Authorized [id number] Closed 08/29/2021 08/29/2022 1 1 Encounter Details Date Type Department Care Team (Late st Contact Info) Description 08/29/2021 Transcribe Orders Virtual Department [address] [place] [address] Josse Herndon MD [address] [place] [phone] Pulmonary embolism and infarction (Primary Dx) Social History Tobacco Use Types [...] Procedure Name Priority Date/Time Associated Diagnosis Comments AMB REFERRAL TO [facility] Routine 09/06/2021 9:52 AM EST Pulmonary embolism and infarction documented in this encounter Results * Ambulatory referral to [facility] (09/06/2021 9:52 AM EST) Other us Josse Roman Po AMB [facility] REFERRALS Final Resul t documented in this encounter Visit Diagnoses Diagnosis Pulmonary embolism and infarction- Primary Other pulmonary embolism and infarction documented in this encounter Care Teams Corporate Recruiter Relationship Specialty Start Date End Date Josse Herndon MD [address] [facility] [address] [place] [phone] PCP - General 05/24/17 documented as of this encounter Additional Source Comments The information contained in this document represents components of the legal health record. It is not the complete legal health record.[facility]
--- OUTSIDE RECORDS SUMMARY | 2025-05-05 07:59 | XMS_ITS | Encounter Summary ---
Author Organization [facility] Address [address] [place] [address] Phone Care Team Providers Care Product Demonstrator Name Role Phone Josse Herndon MD Primary Care Provider [phone] Encounter Details Date Type Department Care Team (Latest Contact Info) Description 07/17/2017 Transcribe Orders [facility] [address] [place] [address] Mora James, DO [address] [place] [address] [email or web address] Thrombosis of left peroneal vein (Primary Dx) [...] Activity, P 80 65 - 160 % [facility] DPT OF LAB MED AND PAT+ Comment: [...] This test has been modified from the ice cream scooper's instructions. Its performance characteristics were determined by [facility] in a manner consistent with CLIA requirements. This test has not been cleared or approved by the U.S. Food and Drug Administration. Blood 07/17/2017 10:4 1 AM EST 07/17/2017 10:46 AM EST Mora James DO LAB BLOOD ORDERABLES Final Result [facility] DPT OF LAB MED AND PAT+ [address] [place] [address] * Protein C activity (07/17/2017 10:41 AM EST) PROTEIN C ACTIVITY, P 71 70 - 150 % [facility] DPT OF LAB MED AND PAT+ Comment: (NOTE) ADDITIONAL INFORMATION This test has been modified from the ice cream scooper's instructions. Its performance characteristics were determined by [facility] in a manner consistent with CLIA requirements. This test has not been cleared or approved by the U.S. Food and Drug Administration. Blood 07/17/2017 10:4 1 AM EST 07/17/2017 10:46 AM EST Mora James LAB BLOOD ORDERABLES Final Result [facility] DPT OF LAB MED AND PAT+ [address] [place] [address] * (ABNORMAL) Comprehensive metabolic panel (07/17/2017 10:41 AM EST) SODIUM 138 133 - 146 mmol/L [facility] POTASSIUM 4.2 3.3 - 5.1 mmol/L [facility] CHLORIDE 101 96 - 108 mmol/L [facility] CO2 28 21 - 35 mmol/L [facility] BUN 16 6 - 19 mg/dL [facility] CREATININE 0.90 0.5 - 1.5 mg/dL [facility] GLUCOSE 144(H) 70 - 99 mg/dL [facility] ALBUMIN 3.8(L) 3.9 - 4.8 g/dL [facility] TOTAL PROTEIN 8.1(H) 6.5 - 8.0 g/dL [facility] CALCIUM 9.4 8.4 - 10.3 mg/dL [facility] ALKALINE PHOSPHATASE 69 39 - 117 U/L [facility] TOTAL BILIRUBIN 0.2 0 - 1.2 mg/dL [facility] AST 14 0 - 37 U/L [facility] ALT 16 0 - 40 U/L [facility] GLOBULIN 4.3 1 - 4.8 g/dL [facility] EGFR >60 60 - 1000 mL/min/1.7 3m2 [facility] Comment:Abnormal if <60. If patient is -Cameroonian, multiply the result by 1.21. ANION GAP 13 10 - 20 mmol/L [facility] Blood 07/17/2017 10:4 1 AM EST 07/17/2017 10:47 AM EST Morakavitha James LAB BLOOD ORDERABLES Final Result [facility] [address] [place] [address] * CBC and differential (07/17/2017 10:41 AM EST) WBC 7.46 3.40 - 11.20 K/uL [facility] RBC 4.13 3.80 - 4.80 M/uL [facility] HGB 12.6 12.0 - 15.0 g/dL [facility] HCT 39.4 36.0 - 46.0 % [facility] PLT 282 130 - 400 K/uL [facility] MCV 95.4 79.0 - 98.0 fL [facility] MCH 30.5 27.0 - 34.8 pg [facility] MCHC 32.0 31.5 - 36.0 g/dL [facility] RDW 14.1 10.8 - 14.6 % [facility] MPV 11.2 9.4 - 12.4 fl [facility] NRBC 0.00 /100 WBCs [facility] ABSOLUTE NRBC 0.00 K/uL [facility] DIFF METHOD Auto [facility] NEUTS 61.6 45.30 - 77.70 % [facility] LYMPHS 28.6 12.30 - 39.70 % [facility] MONOS 5.5 4.10 - 12.80 % [facility] EOS 3.1 0 - 7.2 % [facility] BASOS 0.5 0 - 2.80 % [facility] Granulocytes, immature (%) 0.7 0.0 - 0.9 % [facility] ABSOLUTE NEUTS 4.60 1.40 - 7.70 K/uL [facility] ABSOLUTE LYMPHS 2.13 0.60 - 3.20 K/uL [facility] ABSOLUTE MONOS 0.41 0.11 - 0.59 K/uL [facility] ABSOLUTE EOS 0.23 0.01 - 0.50 K/uL [facility] ABSOLUTE BASOS 0.04 0.00 - 0.08 K/uL [facility] Granulocytes, immature 0.05 0.00 - 0.05 K/uL [facility] Blood 07/17/2017 10:4 1 AM EST 07/17/2017 10:47 AM EST Mora James DO LAB BLOOD ORDERABLES Final Result [facility] [address] [place] [address] documented in this encounter Visit Diagnoses Diagnosis Thrombosis of left peroneal vein- Primary documented in this encounter Care Teams Product Demonstrator Relationship Specialty Start Date End Date Po, Josse Roman MD [address] [place] [address] PCP - General 05/24/17 documented as of this encounter Additional Source Comments The information contained in this document represents components of the legal health record. It is not the complete legal health record.[facility]
--- OUTSIDE RECORDS SUMMARY | 2025-05-05 07:59 | XMS_ITS | Clinical Summary ---
Author Organization [facility] Address [address] [place] [address] Phone Care Team Providers Care Laborer Cutting Tool Name Role Phone Josse Herndon MD Primary Care Provider [phone] Allergies No known active allergies Medications vilazodone (VIIBRYD) 40 mg TabIndications:cindy or depressive disorder Take 40 mg by mouth daily. Indications: major depressive disorder Active simvastatin (ZOCOR) 40 MG tablet Take 40 mg by mouth nightly. Active metFORMIN (GLUCOPHAGE) 500 MG tablet Take 500 mg by mouth 2 (two) times a day with meals. Active cholecalciferol (VITAMIN D3) 25 MCG (1,000 unit) tablet Take 2,000 Units by mouth daily. Active fenofibrate (LOFIBRA) 160 MG tablet Take 160 mg by mouth daily. Active apixaban (ELIQUIS) 5 mg tabletIndications: prevention of venous thromboembolism recurrence Take 1 tablet (5 mg total) by mouth 2 (two) times a day. Indications: prevention of venous thromboembolism recurrence 60 tablet 5 11/13/19 23 Active lurasidone (LATUDA) 40 mg tablet Take 1 tablet (40 mg total) by mouth daily. 30 tablet 11/14/19 23 Active Active Problems Problem Noted Date Diagnosed Date Drug overdose of undetermined intent, initial en counter 11/02/2022 FORD (acute kidney injury) 12/23/2021 Assessment & Plan (12/23/2021 1:27 AM EDT): I suspect this is secondary to lithium toxicity, but the levels are still pending. Will continue fluids, and monitor renal funciton. Consider renal consult if not improving or worsening. Assessment & Plan (12/23/2021 1:07 AM EDT): I suspect this is secondary to lithium toxicity, but the levels are still pending. Will continue fluids, and monitor renal funciton. Consider renal consult if not improving or worsening. Left leg swelling 12/23/2021 Bipolar disorder 12/23/2021 Assessment & Plan (11/11/2022 10:47 AM EDT): Normally takes Viibryd and clonazepam. She has also been taken off of Abilify. This was sometime in the last week or 2. She sees Dr. Cotto as an outpatient. He wanted her to start taking Auvelity which she had not started. -- is back on vilazodone, latuda also restarted -- Still has 1: 1 but has been cooperative with care -- Psychiatry will continue to follow. No W5 beds available this weekend so question of disposition remains. Assessment & Plan (12/23/2021 5:44 PM EDT): Patient stopped lithium prior to last hospitalization, continue the vilazodone and Klonopin Hyperglycemia 12/23/2021 Assessment & Plan (11/09/2022 7:01 PM EDT): resolved - Continue POC - minimal insulin requirement Assessment & Plan (02/07/2022 2:40 PM EDT): - home dose metformin 500 mg twice a day. - metformin held - cont insulin for now - hba1c 7 Assessment & Plan (12/24/2021 11:22 AM EDT): Resume metformin Stage 3a chronic kidney disease 12/23/2021 Assessment & Plan (11/11/2022 10:48 AM EDT): Creatinine has been stable at 0.9 -- Surveillance Assessment & Plan (12/24/2021 11:23 AM EDT): Stable overnight Positive blood culture 12/23/2021 Assessment & Plan (12/24/2021 11:22 AM EDT): Spoke with microbiology department this morning, 1/ cultures drawn on 12/22 positive for coag negative Staphylococcus, felt to be likely contaminant, discussed with Dr. Dinero, cultures from 12/23 are all negative. No fever or signs or symptoms of infection. Home with surveillance off of empiric antibiotic Acute encephalopathy 12/22/2021 Assessment & Plan (11/11/2022 10:47 AM EDT): Acute encephalopathy from benzodiazepine intoxication. She had remained confused and encephalopathic. RPR nonreactive. Vitamin B12 normal. TSH normal. EEG- no epileptiform activity MRI performed on 11/09 showed a small right frontal subarachnoid hemorrhage. CTA head/neck 5 hours later showed a stable appearance. She had a subsequent CT head on 11/10 also was stable. Findings reviewed with teleneurology. (Prior consultation note 2 days ago was not signed and therefore not visible in the [facility] record.) --May resume warfarin with target INR 2-3 --SBP less than 140 --Continue Keppra until delirium has cleared --Do not need to perform MRV as finding of cerebral vein thrombosis would not supervisor records change (already on anticoagulation) -- Encourage mobilization with improvement in mental status Assessment & Plan (02/08/2022 8:11 PM EDT): - so far no clear metabolic cause, bmp, lfts, cbc, tsh, did not reveal trigger - b12 ok, rpr negative - MRI brain: Limited but no clear finding found - EEG: no epileptiform discharges - do wonder if could be due to her medications - her worries she got something confused?? No way to be sure Assessment & Plan (12/23/2021 1:28 AM EDT): This has improved over the course of her time in the ER, but is not back to baseline. Continue IV fluid resuscitation, and monitor renal function. [place] level is still pending. Bilateral pulmonary embolism 06/18/2017 Deep venous thrombosis of lower extremity 2016 History of depression 06/18/2017 Assessment & Plan (02/08/2022 8:10 PM EDT): Patient has significant history of bipolar with depression for over [address] Cotto in [place].- - her expressed concern she may need therapist as well SW requested - cont to hold clonazepam due to sedation Assessment & Plan (12/23/2021 1:29 AM EDT): We do not have vilazodone on formulary, would recommend reaching out to her in the morning to see if he can bring this in for dispensing as non-formulary medicine. Also, I will reduce her dosing frequency of clonzaepam from 4x daily PRN to 2x daily PRN. Resolved Problems Problem Noted Date Diagnosed Date Resolved Date DVT (deep venous thrombosis) 07/06/2017 12/01/2022 Chronic anticoagulation 07/06/201711/05 Assessment & Plan (11/11/2022 10:47 AM EDT): History of DVT/PE -- Resume warfarin Assessment & Plan (12/23/2021 5:44 PM EDT): INR therapeutic, continue warfarin at 5 mg daily, follow INR Assessment & Plan (12/23/2021 1:29 AM EDT): Continue warfarin at home dose and monitor INR. Acute respiratory failure with hypoxemia 06/18/2017 06/20/2017 Pulmonary embolism and infarction [I26.99] 06/02/2017 12/01/2022 Assessment & Plan (02/08/2022 8:09 PM EDT): - Patient is chronically on Coumadin 5 mg daily and currently therapeutic with INR 2.6. - small adjust of coumadin to match home regimen - therapeutic Immunizations Immunization Administration Dates Next Due Influenza, Unspecified Formulation 05/18/2017 Pneumococcal polysaccharide PPSV23 06/20/2017 Family History Medical History Relation Comments Cancer Brother No Known Problems Daughter Lung cancer Father Anxiety disorder Mother Transient ischemic attack Mother Colon cancer Sister Melanoma Sister No Known Problems Son Relation Status Comments Brother Daughter Alive Father Mother Sister Son Alive Social History Tobacco Use Types Packs/Day Years Used Date Smoking Tobacco: Former Smokeless Tobacco: Never Alcohol Use Standard Drinks/Week Comments No 0 (1 standard drink = 0.6 oz pur e alcohol) Education Answer Date Recorded Are you interested in more education? Not on cholo e 12/01/2022 Are you concerned about learning? Not on file 12/01/2022 No 12/01/2022 No 12/01/2022 Digital Access Answer Date Recorded No 12/30/2022 No 12/30/2022 Reliable internet access at home? Not on file 12/30/2022 Device with a working camera? Not on file Intimate Partner Violence Answer Date R ecorded Are you denied basic needs s uch as food, clothing, or medical care? Patient unable to respond 11/02/2022 In the past 12 months have y ou been in a relationship with a person who hurts, threatens, or tries to control you? Patient unable to respond 11/02/2022 Are you denied basic needs s uch as food, clothing, or medical care? Patient unable to respond 11/02/2022 In the past 12 months have y ou been in a relationship with a person who hurts, threatens, or tries to control you? Patient unable to respond 11/02/2022 Comments No Sex and Gender Information Value Date Recorded Sex Assigned at Female 08/13/2017 9:38 AM EST Legal Sex Female 10:03 PM EDT Gender Identity Female 08/13/2017 9:38 AM EST Sexual Orientation Straight 08/13/2017 9: 38 AM EST Last Filed Vital Signs Vital Sign Reading Time Taken Comments Blood Pressure 107/66 11/12/2022 9:45 AM EDT Pulse 109 11/12/2022 9:45 AM EDT Temperature 36.9 C (98.5 F) 11/12/2022 9:45 AM EDT Respiratory Rate 16 11/12/2022 9:45 AM EDT Oxygen Saturation 96% 11/12/2022 9:45 AM EDT Inhaled Oxygen Concentration - - Weight 73.1 kg (161 lb 3.2 oz) 11/12/2022 3:00 A M EDT Height 162.6 cm (5' 4 ) 11/02/2022 11:21 PM EDT Body Mass Index 27.67 11/02/2022 11:21 PM EDT Plan of Treatment Health Maintenance Due Date Last Done Comments Adult Td,Tdap Booster 1950 LIPID PANEL 1949 DEPRESSION SCREENING 1961 SMOKING Hx and SMOKELESS TOBACCO SCREENING 1962 HEPATITIS C SCREENING 1967 COLOGUARD 1994 COLONOSCOPY 1994 COLORECTAL CANCER SCREENING 1994 FIT TEST 1994 FOBT 1994 SIGMOIDOSCOPY 1994 VIRTUAL COLONOSCOPY 1994 ZOSTER VACCINES (1 of 2) 1999 OSTEOPOROSIS SCREENING INITIAL (ONE-TIME) 2014 CREATININE LEVEL 11/11/2023 11/10/2022, 01/2023, 11/07/2022, Additional history exists RSV VACCINE (1 - 1-dose 75+ series) 2024 INFLUENZA VACCINE (#1) 2025 , 05/30/2019, 07/19/2018, Additional history exists COVID-19 VACCINE ( - 2024- season) 2025 10/15/2020, 09/17/2020 PNEUMOCOCCAL VACCINES (50+ years) Completed 09/04/2019, 06/20/2017, 04/19/2016, Additional history exists HEPATITIS A VACCINES Aged Out No long er eligible based on patient's age to complete this topic HIB VACCINES Aged Out No longer eligi ble based on patient's age to complete this topic MENINGOCOCCAL VACCINES (ACWY) Aged Out No longer eligible based on patient's age to complete this topic MENINGOCOCCAL VACCINES (B) Aged Out N o longer eligible based on patient's age to complete this topic Medical Devices Not on file Procedures Procedure Name Priority Date/Time Associated Diagnosis Comments BASIC METABOLIC PANEL Routine 11/10/2022 6:23 AM EDT from Last 3 Months or Most Recently Relevant to Health Maintenance Results * (ABNORMAL) Basic metabolic panel (11/10/2022 6:23 AM EDT) SODIUM 143 133 - 146 mmol/L [facility] CHLORIDE 110(H) 96 - 108 mmol/L [facility] POTASSIUM 4.5 3.3 - 5.1 mmol/L [facility] CO2 23 21 - 35 mmol/L [facility] BUN 13 6 - 19 mg/dL [facility] CREATININE 0.90 0.5 - 1.5 mg/dL [facility] GLUCOSE 142(H) 70 - 99 mg/dL [facility] CALCIUM 9.6 8.4 - 10.3 mg/dL [facility] EGFR 68 >59 mL/min/1.7 3m2 [facility] Comment:Estimated glomerular filtration rate calculated using the CKD-EPI refit equation. ANION GAP 15 10 - 20 mmol/L [facility] Blood 11/10/2022 6:23 AM EDT 11/10/2022 6:28 AM EDT us Ceci Langston MD LAB BLOOD ORDERABLES Final Result Performing Organization Address City/State/[facility] Co de Phone Number [facility] [address] [place] [address] from Last 3 Months or Most Recently Relevant to Health Maintenance Insurance [facility] MEDICARE PART A & B MEDICARE PART A & [place] [address] [place] [address] MEDICARE PART A & B MEDICARE PART A & [place] [address] [place] [address] MEDICARE PART A & [place] [address] [address] MEDICARE PART A & B Member Subscriber Plan / Payer (Ef fective 2018-Present) Name:Ann Garcia Member ID:[id number] Relation to Subscriber:Self Name:Ann Garcia Subscriber ID:[id number] Payer ID:[id number] Group ID:Not on file Type:Medicare Address: [employer] [address] MEDICARE PART A & B MEDICARE PART A & B MEDICARE PART A & B Advance Directives For more information, please contact: [phone] (9AM - 5PM [place], Sunday-Sunday) * Full Code (Latest Code Status on File) Date Activated Date Inactivated Comments 11/02/2022 10:41 PM Question Answer Comments Code Status Confirmed With: Other (specify below ) * Full Code Date Activated Date Inactivated Comments 02/07/2022 1:30 AM 11/02/2022 10:41 PM Question Answer Comments Code Status Confirmed With: Other (specify below ) Code Status Communicated To: Inpatient Attending * Full Code Date Activated Date Inactivated Comments 12/23/2021 6:32 PM 02/07/2022 1:30 AM Question Answer Comments Code Status Confirmed With: Other (specify below ) * Full Code Date Activated Date Inactivated Comments 12/23/2021 12:08 AM 12/23/2021 6:32 PM Question Answer Comments Code Status Confirmed With: PatientFamily * Full Code (Presumed) Date Activated Date Inactivated Comments 06/18/2017 4:24 PM 06/20/2017 8:58 PM Care Teams Laborer Cutting Tool Relationship Specialty Start Date End Date Josse Herndon MD [address] [place] [address] PCP - General 05/24/17 Additional Source Comments The information contained in this document represents components of the legal health record. It is not the complete legal health record.[facility]
--- OUTSIDE RECORDS SUMMARY | 2025-05-05 07:59 | XMS_ITS | Encounter Summary ---
Author Organization [facility] Address [address] [place] [address] Phone Care Team Providers Care Typing Teacher Name Role Phone Josse Herndon MD Primary Care Provider [phone] Reason for Referral * Consultation (Routine) - Closed Specialty Diagnoses / Procedures Referred By Carloz t Referred To Contact Diagnoses Pulmonary embolism and infarction Josse Herndon MD Phone: tel: fax: [address] [address] Phone: tel: Referral ID Status Reason Start Date Expiration Date Visits Re quested Visits Authorized [id number] Closed 09/29/2020 09/29/2021 1 1 Encounter Details Date Type Department Care Team (Late st Contact Info) Description 09/29/2020 Transcribe Orders Virtual Department [address] [place] [address] Josse Herndon MD [address] [place] [phone] Pulmonary embolism and infarction [I26.99] (Primary Dx) Social History Tobacco Use Types [...] Associated Diagnoses Order Schedule Ambulatory referral to [facility] Anticoagulation Clinic Outpatient Referral Routine Pulmonary embolism and infarction [I26.99] Ordered: 09/29/2020 documented as of this encounter Visit Diagnoses Diagnosis Pulmonary embolism and infarction [I26.99]- Primary Other pulmonary embolism and infarction documented in this encounter Care Teams Typing Teacher Relationship Specialty Start Date End Date Po, Josse Roman MD [address] [place] [phone] PCP - General 05/24/17 documented as of this encounter Additional Source Comments The information contained in this document represents components of the legal health record. It is not the complete legal health record.[facility]
--- OUTSIDE RECORDS SUMMARY | 2025-05-05 08:00 | XMS_ITS | Encounter Summary ---
Author Organization [facility] Address [address] [place] [address] Phone Care Team Providers Care Credit Verifier Name Role Phone Josse Herndon MD Primary Care Provider [phone] Encounter Details Date Type Department Care Team (Late st Contact Info) Description 02/06/2022 Procedure Pass [facility], Ct Scan - [address] [address] Social History Tobacco Use Types Packs/Day Years [...] Indicated 02/07/2022 4:00 PM EDT Alessia Hubbard, MUKESH * [place] Suicide Severity Rating Scale (Screener/Recent Self-Report) Question [...] on filedocumented in this encounter Care Teams Credit Verifier Relationship Specialty Start Date End Date Josse Herndon MD [address] [facility] [address] [place] [address] PCP - General 05/24/17 documented as of this encounter Additional Source Comments The information contained in this document represents components of the legal health record. It is not the complete legal health record.[facility]
--- OUTSIDE RECORDS SUMMARY | 2025-05-05 08:00 | XMS_ITS | Encounter Summary ---
Author Organization [facility] Address [address] [facility] [address] [place] [address] Phone Care Team Providers Care Evaporator Helper Name Role Phone Josse Herndon MD Primary Care Provider [phone] Encounter Details Date Type Department Care Team (Late st Contact Info) Description 11/09/2022 Procedure Pass [facility], [address] [address] Social History Tobacco Use Types Packs/Day Years Used Date Smoking Tobacco: Former Smokeless Tobacco: Never Alcohol Use Standard Drinks/Week Comments No 0 (1 standard drink = 0.6 oz pur e alcohol) Intimate Partner Violence Answer Date R ecorded [...] on filedocumented in this encounter Care Teams Evaporator Helper Relationship Specialty Start Date End Date Josse Herndon MD [address] [place] [address] [address] [place] [phone] PCP - General 05/24/17 documented as of this encounter Additional Source Comments The information contained in this document represents components of the legal health record. It is not the complete legal health record.[facility]
--- OUTSIDE RECORDS SUMMARY | 2025-05-05 08:00 | XMS_ITS | Encounter Summary ---
Author Organization [facility] Address [address] [facility] [address] [place] [address] Phone Care Team Providers Care Studio Camera Operator Name Role Phone Josse Herndon MD Primary Care Provider [phone] Encounter Details Date Type Department Care Team (Late st Contact Info) Description 11/09/2022 Procedure Pass [facility], Ct Scan - [address] [address] Social History Tobacco Use Types Packs/Day Years [...] on filedocumented in this encounter Care Teams Studio Camera Operator Relationship Specialty Start Date End Date Josse Herndon MD [address] [place] [address] PCP - General 05/24/17 documented as of this encounter Additional Source Comments The information contained in this document represents components of the legal health record. It is not the complete legal health record.[facility]
--- OUTSIDE RECORDS SUMMARY | 2025-05-05 08:00 | XMS_ITS | Encounter Summary ---
Author Organization [facility] Address [address] [place] [address] Phone Care Team Providers Care Therapeutic Case Manager Name Role Phone Josse Herndon MD Primary Care Provider [phone] Encounter Details Date Type Department Care Team (Late st Contact Info) Description 03/14/2022 Procedure Pass [facility], Ct Scan - [address] [address] Social History Tobacco Use Types Packs/Day Years [...] Date of Assessment Author No Risk Indicated 03/14/2022 4:12 AM Leo Bhandari, MUKESH * [place] Suicide Severity Rating Scale (Screener/Recent Self-Report) Question Answer Date of Assessment Author 1. Wish to be (Past 1 Month) No 022 4:12 AM Leo Bhandari, RN 2. Non-Specific Active Suici lisa Thoughts (Past 1 Month) No 03/14/2022 4:12 AM Norberto Bhandari, RN 6. Suicidal Behavior (Lifetime) No 08/09/202 2 4:12 AM EDT Leo Mejia RN documented as of this encounter Plan of Treatment Not on file documented as of this encounter Visit Diagnoses Not on filedocumented in this encounter Care Teams Therapeutic Case Manager Relationship Specialty Start Date End Date Josse Herndon MD [address] [facility] [address] [place] [address] PCP - General 05/24/17 documented as of this encounter Additional Source Comments The information contained in this document represents components of the legal health record. It is not the complete legal health record.[facility]
--- OUTSIDE RECORDS SUMMARY | 2025-05-05 08:00 | XMS_ITS | Encounter Summary ---
Author Organization [facility] Address [address] [facility] [address] [place] [address] Phone Care Team Providers Care Anchor Tack Puller Name Role Phone Josse Herndon MD Primary Care Provider [phone] Encounter Details Date Type Department Care Team (Late st Contact Info) Description 11/02/2022 Procedure Pass [facility], Ct Scan - [address] [address] Social History Tobacco Use Types Packs/Day Years [...] on filedocumented in this encounter Care Teams Anchor Tack Puller Relationship Specialty Start Date End Date Josse Herndon MD [address] [facility] [place] [address] PCP - General 05/24/17 documented as of this encounter Additional Source Comments The information contained in this document represents components of the legal health record. It is not the complete legal health record.[facility]
--- OUTSIDE RECORDS SUMMARY | 2025-05-05 08:00 | XMS_ITS | Encounter Summary ---
Author Organization [facility] Address [address] [facility] [address] [place] [address] Phone Care Team Providers Care Auto Repair Technician Name Role Phone Josse Herndon MD Primary Care Provider [phone] Reason for Referral * Consultation (Routine) - Closed Specialty Diagnoses / Procedures Referred By Contlore t Referred To Contact Diagnoses Pulmonary infarction Deep vein thrombosis (DVT) of lower extremity, unspecified chronicity, unspecified laterality, unspecified vein Josse Herndon MD Phone: tel: fax: [facility] [address] [place] [address] Phone: tel: Referral ID Status Reason Start Date Expiration Date Visits Re quested Visits Authorized [id number] Closed 06/13/2018 06/13/2019 1 1 Encounter Details Date Type Department Care Team (Late st Contact Info) Description 06/13/2018 Transcribe Orders Virtual Department [address] [place] [address] Josse Herndon MD [address] [place] [phone] Pulmonary infarction (Primary Dx); Deep vein thrombosis (DVT) of lower extremity, unspecified chronicity, unspecified laterality, unspecified vein Social History Tobacco Use Types Packs/Day Years [...] Associated Diagnoses Order Schedule Ambulatory referral to [facility] Anticoagulation Clinic Outpatient Referral Routine Pulmonary infarction Deep vein thrombosis (DVT) of lower extremity, unspecified chronicity, unspecified laterality, unspecified vein Ordered: 06/13/2018 documented as of this encounter Visit Diagnoses Diagnosis Pulmonary infarction- Primary Other pulmonary embolism and infarction Deep vein thrombosis (DVT) of lower extremity, unspecified chronicity, unspecified laterality, unspecified vein documented in this encounter Care Teams Auto Repair Technician Relationship Specialty Start Date End Date Josse Herndon MD [address] [place] [address] [place] [phone] PCP - General 05/24/17 documented as of this encounter Additional Source Comments The information contained in this document represents components of the legal health record. It is not the complete legal health record.[facility]
--- OUTSIDE RECORDS SUMMARY | 2025-05-05 08:00 | XMS_ITS | Patient Health Record ---
Author Organization [facility] Address [address] [place] [address] Care Team Providers Care Marketing Operations Assistant Name Role Phone Josse Herndon MD Primary Care Provider Umer Isbell Jr Unavailable Allergies No Known Allergies Reason For Referral No Information Medications Medication SIG (Take, Route, Frequency, Duration) Notes [...] Oral for 90 Active Vitamin D-3 Active Immunizations Vaccine Route Administration Date Status Comme nts Influenza Unknown 05/06/2019 Administered Influenza Unknown 06/26/2023 Administered Problems Problem Type SNOMED Code ICD Code Onset Dates Problem Status W/U Status Risk Notes Problem 130663981 Colon cancer screening (Z12.11) Active confirmed Problem 994699162 longterm (curre nt) use of anticoagulants (Z79.01) Active confirmed Problem 205006056 Family history o f colon cancer (Z80.0) Active confirmed Plan Of Treatment Future Test Test Name Order Date COLONOSCOPY 03/04/2014 COLONOSCOPY 03/10/2020 COLONOSCOPY 09/17/2023 Insurance Providers Payer Name Payer Address Payer Phone Subscriber Number Group Number Insured Name Patient Relationship to Insured Coverage Start Date Coverage End Date MEDICARE OF [place] [address] [place] [address] [id number] ZAID GARCIA Self - patient is the insured [facility] [address] [place], [place] [id number] [phone] [id number] ZAID GARCIA Self - patient is the insured Medical (General) History Medical History History ICD Code Anxiety/depression/panic attacks DVT/PE with pulmonary infarction Hyperlipidemia Diabetes type 2 Surgical History Surgery Date(Month/Year) section Hospitalization History Reason Date(Month/Year) Lab - blood clots 02/2020 ultrasound on left leg - Large Cyst 02/04 020
--- OUTSIDE RECORDS SUMMARY | 2025-05-05 08:00 | XMS_ITS | Encounter Summary ---
Author Organization [facility] Address [address] [facility] [address] [place] [address] Phone Care Team Providers Care Flight Data Technician Name Role Phone Josse Herndon MD Primary Care Provider [phone] Encounter Details Date Type Department Care Team (Late st Contact Info) Description 11/09/2022 Procedure Pass [facility], Ct Scan - [address] [address] Social History Tobacco Use Types Packs/Day Years [...] on filedocumented in this encounter Care Teams Flight Data Technician Relationship Specialty Start Date End Date Josse Herndon MD [address] [place] [address] PCP - General 05/24/17 documented as of this encounter Additional Source Comments The information contained in this document represents components of the legal health record. It is not the complete legal health record.[facility]
--- OUTSIDE RECORDS SUMMARY | 2025-05-05 08:00 | XMS_ITS | Encounter Summary ---
Author Organization [facility] Address [address] [facility] [address] [place] [address] Phone Care Team Providers Care Gas Welder Name Role Phone Josse Herndon MD Primary Care Provider [phone] Encounter Details Date Type Department Care Team (Late st Contact Info) Description 05/01/2018 Transcribe Orders [facility] [address] [place] [address] Josse Herndon MD [address] [place] [phone] Social History Tobacco Use Types Packs/Day Years [...] on filedocumented in this encounter Care Teams Gas Welder Relationship Specialty Start Date End Date Josse Herndon MD [address] [place] [address] PCP - General 05/24/17 documented as of this encounter Additional Source Comments The information contained in this document represents components of the legal health record. It is not the complete legal health record.[facility]
--- OUTSIDE RECORDS SUMMARY | 2025-05-05 08:00 | XMS_ITS | Encounter Summary ---
Author Organization [facility] Address [address] [place] [address] Phone Care Team Providers Care Ict Systems Test Engineer Name Role Phone Josse Herndon MD Primary Care Provider [phone] Encounter Details Date Type Department Care Team (Late st Contact Info) Description 02/06/2022 Procedure Pass [facility], Ct Scan - [address] [address] Social History Tobacco Use Types Packs/Day Years [...] 4:00 PM EDT Alessia Hubbard, MUKESH * [place] Suicide Severity Rating Scale (Screener/Recent Self-Report) Question [...] on filedocumented in this encounter Care Teams Ict Systems Test Engineer Relationship Specialty Start Date End Date Josse Herndon MD [address] [facility] [address] [place] [address] PCP - General 05/24/17 documented as of this encounter Additional Source Comments The information contained in this document represents components of the legal health record. It is not the complete legal health record.[facility]
--- NOTE | 2025-05-05 08:21 | CA_ITS ---
Acquisition Time: 2025-05-05 08:18:54 Total Exercise Time: 00:02:40 Test Indications: SOB Medications: SEE H&P Protocol: ZULAY Max HR: 141 BPM 97% of Pred: 145 BPM Max BP: 170/68 mmHG Max Work Load: 4.6 METS Exercise stress test with exercise 2 min 40 sec of Zulay protocol, achieving 97% MPHR, with moderate shortness of breath and request to stop, without arrythmia, with normotensive response to exercise, without EKG changes of ischemia at achieved workload. 2 PVCs noted in recovery. Test reviewed with Dr Gnogora. Referred By: Josse Herndon Electronically Signed By: MAMI PANDEY
== END ==
LOC: HO.CARD 07:50
PROVIDERS: PCP Internal Medicine; Visit Provider Internal Medicine
DX: R06.02 Shortness of breath (principal)
CPT/HCPCS: 93017

== ENCOUNTER → 2025-05-05 08:21 | Outpatient (BNV) | payer MEDICARE, BC, SELFPAY | PROVIDERS: PCP Internal Medicine; Visit Provider Nurse Practitioner Family | DX: R06.02 Shortness of breath (principal); I49.3 Ventricular premature depolarization | CPT/HCPCS: 93016; 93018 ==

== ENCOUNTER 2025-05-07 08:50 | Outpatient (AMB) | payer MEDICARE, BC, SELFPAY ==
[2025-05-07 08:57] VITALS: BP 134/68; PULSE 83; TEMP 36.2; O2SAT 98; BMI 27.9
--- NOTE | 2025-05-07 08:57 | A.OFFPC_ITS ---
Vital Signs 05/07/25 08:57 Height 5 ft 3 in Weight 157 lb 4 oz BMI 27.9 BP 134/68 Blood Pressure Location Lt brachial Position Sitting Pulse 83 Pulse Source Pulse Oximeter Temp 97.1 F Temp Source Temporal Artery Scan Pulse Oximetry (%) 98 Oxygen Delivery Method Room Air Intake Visit Reasons: Annual Exam Allergies levomilnacipran (Fetzima) Allergy (Unknown, Verified 05/07/25 09:00) Unknown sertraline (Zoloft) Allergy (Unknown, Verified 05/07/25 09:00) Unknown vortioxetine (From Brintellix) Allergy (Unknown, Verified 05/07/25 09:00) Unknown Medication List - Last Reconciled 05/07/25 by Josse Herndon MD apixaban (Eliquis) 5 mg PO BID cholecalciferol (vitamin D3) 25 mcg PO DAILY cyanocobalamin (vitamin B-12) 1,000 mcg PO DAILY fenofibrate 160 mg PO DAILY 90 days lisinopril 2.5 mg PO DAILY nystatin 1 appl topical BID simvastatin 40 mg PO BEDTIME Tobacco use date assessed: 05/07/25 Fall risk assessment: No Falls in past year Last assessed Fall Risk: 05/07/25 Dental Screening Dental Screen Date: 05/07/25 Did you have a dental visit in the last 12 months?: Yes Did you have a dental problem in the last 6 months where you did not have access to dental care?: No Was dental information given to patient?: Patient has dentist [facility] Medical History Breast cancer screening by mammogram Colon cancer screening Obesity (BMI 30-39.9) Age-related osteoporosis without current pathological fracture Cholelithiasis Type 2 diabetes mellitus with hyperglycemia Hypercholesterolemia Bipolar disorder History of pulmonary embolism Surgical History Hx of colonoscopy History of section Family History Father Lung cancer Mother Chronic mental illness Dementia Social History Household Members: Spouse Housing: House Are you a primary medicare interviewer to a significant other at home: No Do you presently have visiting nurse or other home services: No Alcohol intake: current Alcohol intake frequency: holidays/special occasions only Comment: once Q 6 months 1 glass Patient Tobacco Use Status: Former Tobacco user Tobacco use type: Cigarette Years Smoked: stopped 30 years old e-Cigarette/Vaping Use: Never Used Second Hand Smoke Exposure: No service: No Current occupational status: retired Current occupational exposures/hazards: No Cognitive needs: No Hearing needs: No Vision needs: Yes Questionnaire PHQ-9 Over the last 2 weeks, how often have you been bothered by any of the following problems? 1. Little interest or pleasure in doing things: not at all 2. Feeling down, depressed, or hopeless: not at all 3. Trouble falling or staying asleep, or sleeping too much: not at all 4. Feeling tired or having little energy: more than half the days 5. Poor appetite or overeating: not at all 6. Feeling bad about yourself - or that you are a failure or have let yourself or your family down: more than half the days 7. Trouble concentrating on things, such as reading the newspaper or watching television: not at all 8. Moving or speaking so slowly that other people could have noticed. Or the op posite - being so fidgety or restless that you have been moving around a lot more than usual: not at all 9. Thoughts that you would be better off or of hurting yourself in some way: not at all Total score: 4 Source: Developed by Drs. Tu Hdz, Ruth Wolf, Connor Bennett and colleagues, with an educational nighat from [employer]. Thrive Questionnaire Date Thrive assessed: 03/19/25 I am a: Patient What is your living situation today?: I have a steady place to live Within the past 12 months, did the food you bought not last and you didn't have the money to get more?: I choose not to answer this question Within the past 12 months, did you worry whether your food would run out before you got money to buy more?: I choose not to answer this question Do you have trouble paying for medicines?: I choose not to answer this question Do you have trouble getting transportation to medical appointments?: No Do you have trouble paying your heating and electricity bill?: No Do you have trouble taking care of your child, family member or friend?: No Do you have trouble with day-to-day activities such as bathing, preparing meals, shopping, managing finances, etc.?: No Are you currently unemployed and looking for a job?: I choose not to answer this question Are you interested in more education?: I choose not to answer this question Please select the resources that you would like help with: None Currently or been in a relationship where the following occur: No concerns reported THRIVE Score: 0 AUDIT C Alcohol Use Questionnaire (AUDIT-C) 1. How often do you have a drink containing alcohol?: Monthly or less 2. How many drinks containing alcohol do you have on a typical day when you are drinking?: 1 or 2 3. How often do you have six or more drinks on one occasion?: Never Total Score: 1 TRAE-7 AMB Questionnaire TRAE-7 Date TRAE - 7 assessed: 03/26/25 Feeling nervous, anxious, or on edge: 0 = Not at all Not being able to stop or control worryin = Not at all Worrying too much about different things: 0 = Not at all Trouble relaxin = Not at all Being so restless that it is hard to sit still: 0 = Not at all Becoming easily annoyed or irritable: 0 = Not at all Feeling afraid as if something awful might happen: 0 = Not at all Total TRAE-7 score (0-4 normal; 5-9 mild; 10-14 moderate; 15-21 severe): 0 Source: Developed by Drs. Tu Hdz, Ruth Wolf, Connor Bennett and colleagues, with an educational nighat from [employer]. Review of Systems Const Denies poor appetite and Denies weakness Eyes Denies no additional complaints ENT Reports Normal hearing present, Denies dizziness, Denies nasal congestion, Denies tinnitus and Denies sore throat Card Denies chest pain, Denies syncope, Denies rapid heart rate and Denies dyspnea Resp Denies cough and Denies dyspnea GI Denies change in stool character, Reports constipation, Denies diarrhea, Denies nausea and Denies vomiting Denies urinary frequency, Denies difficulty voiding and Denies dysuria Neuro Reports Normal hearing present, Denies confusion, Denies dizziness, Denies syncope and Denies weakness Psych Denies confusion Physical exam (Primary Care) Vital Signs: Last Vital Signs Temp 97.1 F 05/07/25 08:57 Pulse 83 05/07/25 08:57 BP 134/68 05/07/25 08:57 Pulse Ox 98 05/07/25 08:57 Oxygen Delivery Method Room Air 05/07/25 08:57 BMI result Body Mass Index 27.9 Tobacco/Smoking Status: Tobacco use Status Tobacco use date assessed 05/07/25 05/07/25 09:01 Patient Tobacco Use Status Former Tobacco user 05/07/25 08:57 Tobacco use type Cigarette 05/07/25 08:57 e-Cigarette/Vaping Use Never Used 05/07/25 08:57 PHQ-9: PHQ-9 Score PHQ-9: Total score 4 05/07/25 09:10 Thrive Assessment: Date of Thrive Assessment Date Thrive assessed 03/19/25 05/07/25 08:57 Currently or been in a relationship where the following occur: No concerns reported Const General: No confusion Orientation/consciousness: No confusion HENMT Head: Yes normocephalic Ears: external ears normal and TM's normal bilaterally Face and sinus: Yes normal facial exam Mouth: moist mucous membranes Throat: Yes tonsils normal Eyes Conjunctivae: conjunctivae normal Pupils: Equal, round and reactive pupils present and Pupil accommodation reflex normal Direct Ophthalmoscopy: normal light reflex Neck Neck: No lymphadenopathy Thyroid: Thyroid normal Chest Chest palpation & inspection: normal inspection of the chest Resp Effort & Inspection: normal respiratory effort and no audible wheezes Auscultation: clear to auscultation bilaterally, no crackles, no wheezes and lung sounds not diminished Cardio Rate: regular rate Rhythm: regular rhythm Peripheral pulses: radial pulses present and dorsalis pedis present GI Palpation (GI): no masses Auscultation: normal bowel sounds and normoactive bowel sounds Rectal Exam - Female: deferred Skin General skin exam: no rashes or lesions noted Rashes: no rashes Neuro General: No confusion Cranial nerves: Yes Equal, round and reactive pupils present and Yes Normal hearing present Cognition (Neuro): normal cognition Gait exam (Neuro): Normal gait present Motor exam (neuro): 5/5 motor strength present throughout Deep tendon reflexes (DTR's): Right brachioradialis reflex intensity grade: 2+, Left brachioradialis reflex intensity grade: 2+, Right patellar reflex intensity grade: 2+ and Left patellar reflex intensity grade: 2+ Extrem General: No edema Coding Level of Care Code Est Pt Prev Care >65y(52442) Diagnoses Annual physical exam Z00.00 Type 2 diabetes mellitus with hyperglycemia, without long-term current use of insulin E11.65 Diabetes mellitus halfway insulin use: without halfway use History of pulmonary embolism Z86.711 Hypercholesterolemia E78.00 Osteopenia M85.80 Overweight (BMI 25.0-29.9) E66.3 TRAE (generalized anxiety disorder) F41.1 Assessment & Plan Assessment & Plan (1) Annual physical exam: Code(s): Z00.00 - Encounter for general adult medical examination without abnormal findings Category: Medical Plan: Patient is advised to eat healthy, keep well hydrated, keep active and have adequate sleep. (2) Type 2 diabetes mellitus with hyperglycemia: Comment: Dr. Hahn. Dr. Paula Lanier Code(s): E11.65 - Type 2 diabetes mellitus with hyperglycemia Category: Medical Qualifiers: Diabetes mellitus truck terminal manager insulin use: without truck terminal manager use Qualified Code(s): E11.65 - Type 2 diabetes mellitus with hyperglycemia Plan: Decrease the amount of carbohydrate intake, pasta, bread, rice and potatoes are all sugar and that is aside from all the sweet stuff, remember that fruits are good but they are Sweet also. 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 Be it pork or beef they have a lot of cholesterol on fenofibrate and simvastatin (5) Osteopenia: Comment: 03/2023 Code(s): M85.80 - Other specified disorders of bone density and structure, unspecified site Category: Medical Plan: Discussed about repeat bone density for follow-up (6) Overweight (BMI 25.0-29.9): Code(s): E66.3 - Overweight Category: Medical Plan: Continue with diet and exercise (7) TRAE (generalized anxiety disorder): Code(s): F41.1 - Generalized anxiety disorder Category: Medical Plan History of Present Illness The patient is a 74-year-old female presenting for a physical examination. The patient has a history of diabetes mellitus, which is currently well- controlled with a hemoglobin A1c of 5.9 as of the last blood work in March 2025. She is also managing hypercholesterolemia with fenofibrate and simvastatin, maintaining an LDL cholesterol level of 95 mg/dL. The patient has a history of pulmonary embolism and is currently on anticoag ulation therapy with Eliquis (apixaban). Her renal function is monitored regularly, with the last creatinine level noted at 1.05 mg/dL. The patient experiences anxiety and depression, with a history of bipolar disorder. She has previously been on various medications for these conditions but is currently not seeing a counselor. A new prescription for Wellbutrin has been initiated to manage her anxiety. Preventative care measures are up to date, including a mammogram, colonoscopy, and bone density screening. The patient has received her flu and shingles vaccinations. Health Maintenance - Mammogram: Up to date - Colonoscopy: Last performed October 2023 - Bone density screening: Last performed March 2023 - Flu vaccination: Recommended and administered - Shingles vaccination: Completed Social History - Exercise: Patient reports difficulty with treadmill during stress test due to anxiety - Water intake: Consumes five to six glasses daily, advised to increase to six to eight glasses Review of Systems - Cardiovascular: Denies chest pain, reports anxiety during stress test - Respiratory: Denies dyspnea, reports anxiety-induced symptoms during stress test - Gastrointestinal: Denies heartburn, constipation, and dysphagia - Genitourinary: Reports nocturia twice per night - Neurological: Reports leg cramps, denies other neurological symptoms Physical Exam General: Cooperative, healthy appearing, comfortable, no acute distress and well developed Orientation: Patient oriented x3 Limitations: No limitations Head: Normal to inspection Ears: Hearing grossly normal bilaterally Nose: Normal external nose present Face and sinus: Normal facial exam Eyes: Appearance normal, both eyes and all related structures Neck: Normal visual inspection and Yes full ROM Respiratory: Normal respiratory effort and able to speak in complete sentences. Clear to auscultation bilaterally Cardiovascular: Regular rate and rhythm. Normal S1 and S2 GI: Normal to inspection. Soft to palpation and nontender Skin: No rashes or lesions noted Neuro: Patient oriented x3 Extremities: Normal to inspection, but patient reports cramps in both legs, possibly related to dehydration or medication side effects. Results - Labs: Hemoglobin A1c 5.9, LDL cholesterol 95 mg/dL, creatinine 1.05 mg/dL, vitamin D low, other electrolytes normal - Tests: Stress test negative for ischemia Plan Patient was informed and verbally consented to the use of an ambient scribe for clinic note documentation during this visit. 1. Diabetes Mellitus The patient's diabetes mellitus is well-controlled with a hemoglobin A1c of 5.9. The goal is to maintain an A1c below 7.0. Continue current management and monitor blood glucose levels regularly. 2. Hypercholesterolemia The patient is on fenofibrate and simvastatin for hypercholesterolemia, with an LDL cholesterol level of 95 mg/dL. Continue current medications and dietary modifications. 3. Pulmonary Embolism The patient is on anticoagulation therapy with Eliquis (apixaban) for a history of pulmonary embolism. Continue current anticoagulation regimen and monitor renal function. 4. Anxiety The patient experiences anxiety, particularly during stress-inducing situations. A prescription for Wellbutrin has been initiated to help manage symptoms. Consider counseling for additional support. 5. Preventative Care Preventative care measures are up to date, including mammogram, colonoscopy, and bone density screening. Vaccinations for flu and shingles have been administered. Discussion Notes During the visit, we discussed the management of the patient's diabetes, hypercholesterolemia, and anxiety. The importance of maintaining blood glucose and cholesterol levels within target ranges was emphasized. We also reviewed the patient's preventative care measures, including vaccinations and screenings. The patient was advised to consider counseling for anxiety management, and a prescription for Wellbutrin was provided. Follow-up was scheduled to monitor the effectiveness of the treatment plan. Patient Instructions - Continue current diabetes and cholesterol medications as prescribed. - Take Wellbutrin once daily for anxiety management. - Maintain regular follow-up appointments to monitor health status. - Ensure vaccinations are up to date, including flu and shingles shots. - Increase water intake to six to eight glasses daily. Orders: Orders XR DEXA axial skeleton Today M81.0 - Age-related osteoporosis without current pathological fracture, M85.80 - Other specified disorders of bone density and structure, unspecified site Medications: New bupropion HCl XL (Wellbutrin XL) 150 mg PO QAM 30 tabs 2RF F41.1 - Generalized anxiety disorder
--- OUTSIDE RECORDS SUMMARY | 2025-05-07 09:20 | XMS_ITS | Encounter Summary ---
Author Organization [facility] Address [address] [place] [id number] Phone Care Team Providers Care Paint Laboratory Technician Name Role Phone Josse Herndon MD Primary Care Provider [phone] Encounter Details Date Type Department Care Team (Late st Contact Info) Description 12/22/2021 Procedure [facility], Ct Scan - [address] [address] Social History Tobacco Use Types Packs/Day Years [...] 3:00 PM EDT Dayami Barrett, RN * [place] Suicide Severity Rating Scale (Screener/Recent Self-Report) Question [...] on filedocumented in this encounter Care Teams Paint Laboratory Technician Relationship Specialty Start Date End Date Josse Herndon MD [address] [facility] [address] [place] [phone] PCP - General 05/24/17 documented as of this encounter Additional Source Comments The information contained in this document represents components of the legal health record. It is not the complete legal health record.[facility]
--- OUTSIDE RECORDS SUMMARY | 2025-05-07 09:20 | XMS_ITS | Clinical Summary ---
Author Organization [facility] Address [address] [place] [address] Phone Care Team Providers Care Director Of Rotc Name Role Phone Josse Herndon MD Primary Care Provider [phone] Allergies No known active allergies Medications vilazodone [...] finding of cerebral vein thrombosis would not exchange engineer (already on anticoagulation) -- Encourage mobilization with [...] IV fluid resuscitation, and monitor renal function. [place] level is still pending. Bilateral pulmonary embolism 06/18/2017 Deep venous thrombosis of lower extremity 2016 History of depression 06/18/2017 Assessment & Plan (02/08/2022 8:10 PM EDT): Patient has significant history of bipolar with depression for over [address]. [address] Cotto in [place].- - her expressed concern she may need [...] EDT) SODIUM 143 133 - 146 mmol/L [facility] CHLORIDE 110(H) 96 - 108 mmol/L [facility] POTASSIUM 4.5 3.3 - 5.1 mmol/L [facility] CO2 23 21 - 35 mmol/L [facility] BUN 13 6 - 19 mg/dL [facility] CREATININE 0.90 0.5 - 1.5 mg/dL [facility] GLUCOSE 142(H) 70 - 99 mg/dL [facility] CALCIUM 9.6 8.4 - 10.3 mg/dL [facility] EGFR 68 >59 mL/min/1.7 3m2 [facility] Comment:Estimated glomerular filtration rate calculated using the CKD-EPI refit equation. ANION GAP 15 10 - 20 mmol/L [facility] Blood 11/10/2022 6:23 AM EDT 11/10/2022 6:28 AM EDT us Ceci Langston MD LAB BLOOD ORDERABLES Final Result Performing Organization Address City/State/[facility] Co de Phone Number [facility] [address] [place] [address] from Last 3 Months or Most Recently Relevant to Health Maintenance Insurance [facility] MEDICARE PART A & B MEDICARE PART A & [place] [address] [place] [address] MEDICARE PART A & B MEDICARE PART [address] [place] [address] [place] [address] [address] PART A [address] [place] [address] [place] [address] MEDICARE PART A & B Member Subscriber Plan / Payer (Ef fective 2018-Present) Name:Ann Garcia Member ID:[id number] Relation to Subscriber:Self Name:Ann Garcia Subscriber ID:[id number] Payer ID:[id number] Group ID:Not on file Type:Medicare Address: [employer] [id number] MEDICARE PART A & B MEDICARE PART A & B MEDICARE PART A & B Advance Directives For more information, please contact: [phone] (9AM - 5PM [place], Sunday-Sunday) * Full [...] 4:24 PM 06/20/2017 8:58 PM Care Teams Director Of Rotc Relationship Specialty Start Date End Date Josse Herndon MD [address] [place] [address] PCP - General 05/24/17 Additional Source Comments The information contained in this document represents components of the legal health record. It is not the complete legal health record.[facility]
--- OUTSIDE RECORDS SUMMARY | 2025-05-07 09:20 | XMS_ITS | Encounter Summary ---
Author Organization [facility] Address [address] [facility] [address] [place] [address] Phone Care Team Providers Care Board Filler Name Role Phone Josse Herndon MD Primary Care Provider [phone] Reason for Referral * Consultation (Routine) - Closed Specialty Diagnoses / Procedures Referred By Carloz t Referred To Contact Diagnoses Pulmonary embolism and infarction Josse Herndon MD Phone: tel: fax: [address] [address] Phone: tel: Referral ID Status Reason Start Date Expiration Date Visits Re quested Visits Authorized [id number] Closed 09/29/2020 09/29/2021 1 1 Encounter Details Date Type Department Care Team (Late st Contact Info) Description 09/29/2020 Transcribe Orders Virtual Department [address] [place] [phone] Josse Herndon MD [address] [place] [phone] Pulmonary embolism and infarction [I26.99] (Primary [...] infarction documented in this encounter Care Teams Board Filler Relationship Specialty Start Date End Date Po, Josse Roman MD [address] [place] [phone] PCP - General 05/24/17 documented as of this encounter Additional Source Comments The information contained in this document represents components of the legal health record. It is not the complete legal health record.[facility]
--- OUTSIDE RECORDS SUMMARY | 2025-05-07 09:20 | XMS_ITS | Encounter Summary ---
Author Organization [facility] Address [address] [place] [address] Phone Care Team Providers Care 3D Artist Name Role Phone Josse Herndon MD Primary Care Provider [phone] Encounter Details Date Type Department Care Team (Latest Contact Info) Description 07/17/2017 Transcribe Orders [facility] [address] [place] [address] Mora James, DO [address] [place] [address] [email or web address] Thrombosis of left peroneal vein (Primary Dx) [...] Activity, P 80 65 - 160 % [facility] Comment: [...] This test has been modified from the food and beverage associate's instructions. Its performance characteristics were determined by [facility] in a manner consistent with CLIA requirements. This test has not been cleared or approved by the U.S. Food and Drug Administration. Blood 07/17/2017 10:4 1 AM EST 07/17/2017 10:46 AM EST Mora James DO LAB BLOOD ORDERABLES Final Result [facility] [address] [place] [address] * Protein C activity (07/17/2017 10:41 AM EST) PROTEIN C ACTIVITY, P 71 70 - 150 % [facility] Comment: (NOTE) ADDITIONAL INFORMATION This test has been modified from the food and beverage associate's instructions. Its performance characteristics were determined by [facility] in a manner consistent with CLIA requirements. This test has not been cleared or approved by the U.S. Food and Drug Administration. Blood 07/17/2017 10:4 1 AM EST 07/17/2017 10:46 AM EST Mora James LAB BLOOD ORDERABLES Final Result [facility] [address] [place] [address] * (ABNORMAL) Comprehensive metabolic panel (07/17/2017 10:41 AM EST) SODIUM 138 133 - 146 mmol/L [facility] POTASSIUM 4.2 3.3 - 5.1 mmol/L [facility] CHLORIDE 101 96 - 108 mmol/L [facility] CO2 28 21 - 35 mmol/L [facility] BUN 16 6 - 19 mg/dL [facility] CREATININE 0.90 0.5 - 1.5 mg/dL [facility] GLUCOSE 144(H) 70 - 99 mg/dL [facility] ALBUMIN 3.8(L) 3.9 - 4.8 g/dL [facility] TOTAL PROTEIN 8.1(H) 6.5 - 8.0 g/dL [facility] CALCIUM 9.4 8.4 - 10.3 mg/dL [facility] ALKALINE PHOSPHATASE 69 39 - 117 U/L [facility] TOTAL BILIRUBIN 0.2 0 - 1.2 mg/dL [facility] AST 14 0 - 37 U/L [facility] ALT 16 0 - 40 U/L [facility] GLOBULIN 4.3 1 - 4.8 g/dL [facility] EGFR >60 60 - 1000 mL/min/1.7 3m2 [facility] Comment:Abnormal if <60. If patient is -Singaporean, multiply the result by 1.21. ANION GAP 13 10 - 20 mmol/L [facility] Blood 07/17/2017 10:4 1 AM EST 07/17/2017 10:47 AM EST Morakavitha James LAB BLOOD ORDERABLES Final Result [facility] [address] [place] [address] * CBC and differential (07/17/2017 10:41 AM EST) WBC 7.46 3.40 - 11.20 K/uL [facility] RBC 4.13 3.80 - 4.80 M/uL [facility] HGB 12.6 12.0 - 15.0 g/dL [facility] HCT 39.4 36.0 - 46.0 % [facility] PLT 282 130 - 400 K/uL [facility] MCV 95.4 79.0 - 98.0 fL [facility] MCH 30.5 27.0 - 34.8 pg [facility] MCHC 32.0 31.5 - 36.0 g/dL [facility] RDW 14.1 10.8 - 14.6 % [facility] MPV 11.2 9.4 - 12.4 fl [facility] NRBC 0.00 /100 WBCs [facility] ABSOLUTE NRBC 0.00 K/uL [facility] DIFF METHOD Auto [facility] NEUTS 61.6 45.30 - 77.70 % [facility] LYMPHS 28.6 12.30 - 39.70 % [facility] MONOS 5.5 4.10 - 12.80 % [facility] EOS 3.1 0 - 7.2 % [facility] BASOS 0.5 0 - 2.80 % [facility] Granulocytes, immature (%) 0.7 0.0 - 0.9 % [facility] ABSOLUTE NEUTS 4.60 1.40 - 7.70 K/uL [facility] ABSOLUTE LYMPHS 2.13 0.60 - 3.20 K/uL [facility] ABSOLUTE MONOS 0.41 0.11 - 0.59 K/uL [facility] ABSOLUTE EOS 0.23 0.01 - 0.50 K/uL [facility] ABSOLUTE BASOS 0.04 0.00 - 0.08 K/uL [facility] Granulocytes, immature 0.05 0.00 - 0.05 K/uL [facility] Blood 07/17/2017 10:4 1 AM EST 07/17/2017 10:47 AM EST Mora James DO LAB BLOOD ORDERABLES Final Result [facility] [address] [place] [address] documented in this encounter Visit Diagnoses Diagnosis Thrombosis of left peroneal vein- Primary documented in this encounter Care Teams 3D Artist Relationship Specialty Start Date End Date Po, Josse Roman MD [address] [place] [address] PCP - General 05/24/17 documented as of this encounter Additional Source Comments The information contained in this document represents components of the legal health record. It is not the complete legal health record.[facility]
--- OUTSIDE RECORDS SUMMARY | 2025-05-07 09:20 | XMS_ITS | Encounter Summary ---
Author Organization [facility] Address [address] [place] [address] Phone Care Team Providers Care Roll Bucker Name Role Phone Josse Herndon MD Primary Care Provider [phone] Reason for Referral * Consultation (Elective) - Closed Specialty Diagnoses / Procedures Referred By Carloz t Referred To Contact Diagnoses Pulmonary embolism and infarction Josse Herndon MD Phone: tel: fax: [address] [address] Phone: tel: Referral ID Status Reason Start Date Expiration Date Visits Re quested Visits Authorized [id number] Closed 08/29/2021 08/29/2022 1 1 Encounter Details Date Type Department Care Team (Late st Contact Info) Description 08/29/2021 Transcribe Orders Virtual Department [address] [place] [address] Josse Herndon MD [address] [place] [phone] Pulmonary embolism and infarction (Primary Dx) [...] Date/Time Associated Diagnosis Comments AMB [facility]FERRAL [facility] Routine 09/06/2021 9:52 AM EST Pulmonary embolism and infarction documented in this encounter Results * Ambulatory referral [facility] (09/06/2021 9:52 AM EST) Other us Josse Roman Po AMB [facility] RE[facility] Final Resul t documented in this encounter Visit Diagnoses Diagnosis Pulmonary embolism and infarction- Primary Other pulmonary embolism and infarction documented in this encounter Care Teams Roll Bucker Relationship Specialty Start Date End Date Josse Herndon MD [address] [facility] [address] [place] [phone] PCP - General 05/24/17 documented as of this encounter Additional Source Comments The information contained in this document represents components of the legal health record. It is not the complete legal health record.[facility]
--- OUTSIDE RECORDS SUMMARY | 2025-05-07 09:20 | XMS_ITS | Encounter Summary ---
Author Organization [facility] Address [address] [place] [address] Phone Care Team Providers Care Pourer Metal Name Role Phone Josse Herndon MD Primary Care Provider [phone] Encounter Details Date Type Department Care Team (Late st Contact Info) Description 06/18/2017 Procedure Pass [facility], Ct Scan - [address] [address] Social History Tobacco Use Types Packs/Day Years [...] on filedocumented in this encounter Care Teams Pourer Metal Relationship Specialty Start Date End Date Josse Herndon MD [address] [place] [address] PCP - General 05/24/17 documented as of this encounter Additional Source Comments The information contained in this document represents components of the legal health record. It is not the complete legal health record.[facility]
--- OUTSIDE RECORDS SUMMARY | 2025-05-07 09:20 | XMS_ITS | Encounter Summary ---
Author Organization [facility] Address [address] [place] [address] Phone Care Team Providers Care Human Machine Interface Engineer Name Role Phone Josse Herndon MD Primary Care Provider [phone] Reason for Referral * Consultation (Routine) - Closed Specialty Diagnoses / Procedures Referred By Contlore t Referred To Contact Diagnoses Deep vein thrombosis (DVT) of lower extremity, unspecified chronicity, unspecified laterality, unspecified vein Josse Herndon MD Phone: tel: fax: [facility] [address] [place] [address] Phone: tel: Referral ID Status Reason Start Date Expiration Date Visits Re quested Visits Authorized [id number] Closed 07/27/2020 07/27/2021 1 1 Encounter Details Date Type Department Care Team (Late st Contact Info) Description 07/27/2020 Transcribe Orders Virtual Department [address] [place] [address] Josse Herndon MD [address] [place] [phone] Deep vein thrombosis (DVT) of lower [...] Associated Diagnoses Order Schedule Ambulatory referral to [facility] Outpatient Referral Routine Deep vein thrombosis (DVT) of lower extremity, unspecified chronicity, unspecified laterality, unspecified vein Ordered: 07/27/2020 documented as of this encounter Visit Diagnoses Diagnosis Deep vein thrombosis (DVT) of lower extremity, unspecified chronicity, unspecified laterality, unspecified vein- Primary documented in this encounter Care Teams Human Machine Interface Engineer Relationship Specialty Start Date End Date Josse Herndon MD [address] [place] [address] [address] [place] [address] PCP - General 05/24/17 documented as of this encounter Additional Source Comments The information contained in this document represents components of the legal health record. It is not the complete legal health record.[facility]
--- OUTSIDE RECORDS SUMMARY | 2025-05-07 09:21 | XMS_ITS | Patient Health Record ---
Author Organization [facility] Address [address] [place] [phone] Care Team Providers Care Lead Tank Mechanic Name Role Phone Josse Herndon MD Primary Care Provider Umer Isbell Jr Unavailable [phone] Allergies No Known Allergies Reason For Referral [...] Problem Status W/U Status Risk Notes Problem [id number] Colon cancer screening (Z12.11) Active confirmed Problem [id number] [facility] (curre nt) use of anticoagulants (Z79.01) Active confirmed Problem [id number] Family history o f colon cancer (Z80.0) Active confirmed Plan Of Treatment Future Test Test Name Order Date COLONOSCOPY 03/04/2014 COLONOSCOPY 03/10/2020 COLONOSCOPY 09/17/2023 Insurance Providers Payer Name Payer Address Payer Phone Subscriber Number Group Number Insured Name Patient Relationship to Insured Coverage Start Date Coverage End Date MEDICARE OF [place] [address] [place] [address] [id number] ZAID GARCIA Self - patient is the insured [facility] [address] [place], [place] [phone] [id number] ZAID GARCIA Self - patient is the insured Medical (General) History Medical History History ICD Code Anxiety/depression/panic attacks DVT/PE with pulmonary infarction Hyperlipidemia Diabetes type 2 Surgical History Surgery Date(Month/Year) section Hospitalization History Reason Date(Month/Year) Lab - blood clots 02/2020 ultrasound on left leg - Large Cyst 02/04 020
--- OUTSIDE RECORDS SUMMARY | 2025-05-07 09:21 | XMS_ITS | Encounter Summary ---
Author Organization [facility] Address [address] [place] [address] Phone Care Team Providers Care Metal Fabricator Helper Name Role Phone Josse Herndon MD Primary Care Provider [phone] Encounter Details Date Type Department Care Team (Late st Contact Info) Description 02/06/2022 Procedure Pass [facility], Ct Scan - [address] [address] Social History Tobacco Use Types Packs/Day Years [...] Author No Risk Indicated 02/07/2022 4:00 PM [facility]ET Alessia Hubbard, MUKESH * [place] Suicide Severity Rating Scale (Screener/Recent Self-Report) Question [...] on filedocumented in this encounter Care Teams Metal Fabricator Helper Relationship Specialty Start Date End Date Josse Herndon MD [address] [facility] [address] [place] [address] PCP - General 05/24/17 documented as of this encounter Additional Source Comments The information contained in this document represents components of the legal health record. It is not the complete legal health record.[facility]
--- OUTSIDE RECORDS SUMMARY | 2025-05-07 09:21 | XMS_ITS | Encounter Summary ---
Author Organization [facility] Address [address] [place] [address] Phone Care Team Providers Care Merchandise Marker Name Role Phone Josse Herndon MD Primary Care Provider [phone] Reason for Referral * Consultation (Routine) - Closed Specialty Diagnoses / Procedures Referred By Contlore t Referred To Contact Diagnoses Pulmonary infarction Deep vein thrombosis (DVT) of lower extremity, unspecified chronicity, unspecified laterality, unspecified vein Josse Herndon MD Phone: tel: fax: [facility] [address] [place] [address] Phone: tel: Referral ID Status Reason Start Date Expiration Date Visits Re quested Visits Authorized [id number] Closed 06/13/2018 06/13/2019 1 1 Encounter Details Date Type Department Care Team (Late st Contact Info) Description 06/13/2018 Transcribe Orders Virtual Department [address] [place] [address] Josse Herndon MD [address] [place] [phone] Pulmonary infarction (Primary Dx); Deep vein [...] Associated Diagnoses Order Schedule Ambulatory referral to [facility] Outpatient Referral Routine Pulmonary infarction Deep vein thrombosis (DVT) of lower extremity, unspecified chronicity, unspecified laterality, unspecified vein Ordered: 06/13/2018 documented as of this encounter Visit Diagnoses Diagnosis Pulmonary infarction- Primary Other pulmonary embolism and infarction Deep vein thrombosis (DVT) of lower extremity, unspecified chronicity, unspecified laterality, unspecified vein documented in this encounter Care Teams Merchandise Marker Relationship Specialty Start Date End Date Josse Herndon MD [address] [place] [address] [place] [phone] PCP - General 05/24/17 documented as of this encounter Additional Source Comments The information contained in this document represents components of the legal health record. It is not the complete legal health record.[facility]
--- OUTSIDE RECORDS SUMMARY | 2025-05-07 09:21 | XMS_ITS | Encounter Summary ---
Author Organization [facility] Address [address] [place] [address] Phone Care Team Providers Care Extractor Puller Name Role Phone Josse Herndon MD Primary Care Provider [phone] Encounter Details Date Type Department Care Team (Late st Contact Info) Description 11/09/2022 Procedure Pass [facility], Ct Scan - [address] [address] Social History Tobacco Use Types Packs/Day Years [...] on filedocumented in this encounter Care Teams Extractor Puller Relationship Specialty Start Date End Date Josse Herndon MD [address] [place] [address] PCP - General 05/24/17 documented as of this encounter Additional Source Comments The information contained in this document represents components of the legal health record. It is not the complete legal health record.[facility]
--- OUTSIDE RECORDS SUMMARY | 2025-05-07 09:21 | XMS_ITS | Encounter Summary ---
Author Organization [facility] Address [address] [place] [address] Phone Care Team Providers Care Casino Runner Name Role Phone Josse Herndon MD Primary Care Provider [phone] Encounter Details Date Type Department Care Team (Late st Contact Info) Description 11/09/2022 Procedure Pass [facility], Ct Scan - [address] [address] Social History Tobacco Use Types Packs/Day Years [...] on filedocumented in this encounter Care Teams Casino Runner Relationship Specialty Start Date End Date Josse Herndon MD [address] [place] [address] PCP - General 05/24/17 documented as of this encounter Additional Source Comments The information contained in this document represents components of the legal health record. It is not the complete legal health record.[facility]
--- OUTSIDE RECORDS SUMMARY | 2025-05-07 09:21 | XMS_ITS | Encounter Summary ---
Author Organization [facility] Address [address] [place] [address] Phone Care Team Providers Care Professor Of Apologetics Name Role Phone Josse Herndon MD Primary Care Provider [phone] Encounter Details Date Type Department Care Team (Late st Contact Info) Description 03/14/2022 Procedure Pass [facility], Ct Scan - [address] [address] Social History Tobacco Use Types Packs/Day Years [...] 03/14/2022 4:12 AM Leo Bhandari, MUKESH * [place] Suicide Severity Rating Scale (Screener/Recent Self-Report) Question Answer Date of Assessment Author 1. Wish to be (Past 1 Month) No 022 4:12 AM Leo Bhandari, RN 2. Non-Specific Active Suici lisa Thoughts (Past 1 Month) No 03/14/2022 4:12 AM Norberto Bhandari, RN 6. Suicidal Behavior (Lifetime) No 2 4:12 AM EDT Leo Mejia RN documented as of this encounter Plan of Treatment Not on file documented as of this encounter Visit Diagnoses Not on filedocumented in this encounter Care Teams Professor Of Apologetics Relationship Specialty Start Date End Date Josse Herndon MD [address] [facility] [address] [place] [address] PCP - General 05/24/17 documented as of this encounter Additional Source Comments The information contained in this document represents components of the legal health record. It is not the complete legal health record.[facility]
--- OUTSIDE RECORDS SUMMARY | 2025-05-07 09:21 | XMS_ITS | Encounter Summary ---
Author Organization [facility] Address [address] [place] [address] Phone Care Team Providers Care Insurance Underwriting Assistant Name Role Phone Josse Herndon MD Primary Care Provider [phone] Encounter Details Date Type Department Care Team (Late st Contact Info) Description 02/07/2022 Procedure Pass [facility], [address] [address] Social History Tobacco Use Types Packs/Day Years [...] 4:00 PM EDT Alessia Hubbard, RN * [place] Suicide Severity Rating Scale (Screener/Recent Self-Report) Question [...] on filedocumented in this encounter Care Teams Insurance Underwriting Assistant Relationship Specialty Start Date End Date Josse Herndon MD [address] [place] [address] PCP - General 05/24/17 documented as of this encounter Additional Source Comments The information contained in this document represents components of the legal health record. It is not the complete legal health record.[facility]
--- OUTSIDE RECORDS SUMMARY | 2025-05-07 09:21 | XMS_ITS | Encounter Summary ---
Author Organization [facility] Address [address] [place] [address] Phone Care Team Providers Care Hand Spring Repairer Name Role Phone Josse Herndon MD Primary Care Provider [phone] Encounter Details Date Type Department Care Team (Late st Contact Info) Description 05/01/2018 Transcribe Orders [facility] [address] [place] [address] Josse Herndon MD [address] [place] [phone] Social History Tobacco Use Types Packs/Day [...] on filedocumented in this encounter Care Teams Hand Spring Repairer Relationship Specialty Start Date End Date Josse Herndon MD [address] [place] [address] PCP - General 05/24/17 documented as of this encounter Additional Source Comments The information contained in this document represents components of the legal health record. It is not the complete legal health record.[facility]
--- OUTSIDE RECORDS SUMMARY | 2025-05-07 09:21 | XMS_ITS | Encounter Summary ---
Author Organization [facility] Address [address] [place] [address] Phone Care Team Providers Care Metals Analyst Name Role Phone Josse Herndon MD Primary Care Provider [phone] Encounter Details Date Type Department Care Team (Late st Contact Info) Description 02/06/2022 Procedure Pass [facility], Ct Scan - [address] [address] Social History Tobacco Use Types Packs/Day Years [...] 4:00 PM [place]ET Alessia Hubbard, MUKESH * [place] Suicide Severity Rating Scale (Screener/Recent Self-Report) Question [...] on filedocumented in this encounter Care Teams Metals Analyst Relationship Specialty Start Date End Date Josse Herndon MD [address] [facility] [address] [place] [phone] PCP - General 05/24/17 documented as of this encounter Additional Source Comments The information contained in this document represents components of the legal health record. It is not the complete legal health record.[facility]
--- OUTSIDE RECORDS SUMMARY | 2025-05-07 09:21 | XMS_ITS | Encounter Summary ---
Author Organization [facility] Address [address] [place] [address] Phone Care Team Providers Care Ladle Repairer Name Role Phone Josse Herndon MD Primary Care Provider [phone] Encounter Details Date Type Department Care Team (Late st Contact Info) Description 11/02/2022 Procedure Pass [facility], Ct Scan - [address] [address] Social History Tobacco Use Types Packs/Day Years [...] on filedocumented in this encounter Care Teams Ladle Repairer Relationship Specialty Start Date End Date Josse Herndon MD [address] [place] [address] PCP - General 05/24/17 documented as of this encounter Additional Source Comments The information contained in this document represents components of the legal health record. It is not the complete legal health record.[facility]
--- OUTSIDE RECORDS SUMMARY | 2025-05-07 09:21 | XMS_ITS | Encounter Summary ---
Author Organization [facility] Address [address] [facility] [address] [place] [address] Phone Care Team Providers Care Installation Service Representative Name Role Phone Josse Herndon MD Primary Care Provider [phone] Encounter Details Date Type Department Care Team (Late st Contact Info) Description 11/09/2022 Procedure Pass [facility], [address] [address] Social History Tobacco Use Types Packs/Day Years [...] on filedocumented in this encounter Care Teams Installation Service Representative Relationship Specialty Start Date End Date Josse Herndon MD [address] [place] [address] [address] [place] [address] PCP - General 05/24/17 documented as of this encounter Additional Source Comments The information contained in this document represents components of the legal health record. It is not the complete legal health record.[facility]
== END 2025-05-07 09:51 | disposition home or self-care (01) ==
LOC: HO.HMCH 08:50
PROVIDERS: PCP Internal Medicine; Visit Provider Internal Medicine
DX: Z00.00 Encounter for general adult medical examination without abnormal findings (principal); E11.65 Type 2 diabetes mellitus with hyperglycemia; E66.3 Overweight; Z68.27 Body mass index [BMI] 27.0-27.9, adult; Z86.711 Personal history of pulmonary embolism; E78.00 Pure hypercholesterolemia, unspecified; M85.80 Other specified disorders of bone density and structure, unspecified site; F41.1 Generalized anxiety disorder

== ENCOUNTER → 2025-05-07 08:50 | Outpatient (BNVA) | payer MEDICARE, BC, SELFPAY | PROVIDERS: PCP Internal Medicine; Visit Provider Internal Medicine | DX: Z00.00 Encounter for general adult medical examination without abnormal findings (principal); E11.65 Type 2 diabetes mellitus with hyperglycemia; E78.00 Pure hypercholesterolemia, unspecified; M85.80 Other specified disorders of bone density and structure, unspecified site; E66.3 Overweight; F41.1 Generalized anxiety disorder; M81.0 Age-related osteoporosis without current pathological fracture; Z79.01 Long term (current) use of anticoagulants; Z86.711 Personal history of pulmonary embolism; Z68.27 Body mass index [BMI] 27.0-27.9, adult | CPT/HCPCS: 99397 ==

== ENCOUNTER → 2025-07-22 07:45 | Outpatient (REF) | payer MEDICARE, BC, SELFPAY ==
--- OUTSIDE RECORDS SUMMARY | 2025-07-22 07:47 | XMS_ITS | Encounter Summary ---
Author Organization [facility] Address [address] [place] [address] Phone Care Team Providers Care Program Director Substance Abuse Name Role Phone Josse Herndon MD Primary Care Provider [phone] Reason for Referral * Consultation (Elective) - Closed Specialty Diagnoses / Procedures Referred By Carloz t Referred To Contact Diagnoses Pulmonary embolism and infarction Josse Herndon MD Phone: tel: fax: [address] [address] Phone: tel: Referral ID Status Reason Start Date Expiration Date Visits Re quested Visits Authorized [id number] Closed 08/29/2021 08/29/2022 1 1 Encounter Details Date Type Department Care Team (Late st Contact Info) Description 08/29/2021 Transcribe Orders Virtual Department [address] [place] [address] Josse Herndon MD [address] [place] [phone] Pulmonary embolism and infarction (Primary Dx) [...] Date/Time Associated Diagnosis Comments AMB REFERRAL TO [facility]TICO[facility]ULATION [facility] Routine 09/06/2021 9:52 AM EST Pulmonary embolism and infarction documented in this encounter Results * Ambulatory referral to [facility] Anticoagulation Clinic (09/06/2021 9:52 AM EST) Other us Josse Roman Po AMB [facility] REFERRALS Final Resul t documented in this encounter Visit Diagnoses Diagnosis Pulmonary embolism and infarction- Primary Other pulmonary embolism and infarction documented in this encounter Care Teams Program Director Substance Abuse Relationship Specialty Start Date End Date Josse Herndon MD [address] [facility] [address] [place] [id number] PCP - General 05/24/17 documented as of this encounter Additional Source Comments The information contained in this document represents components of the legal health record. It is not the complete legal health record.[facility]
--- OUTSIDE RECORDS SUMMARY | 2025-07-22 07:47 | XMS_ITS | Encounter Summary ---
Author Organization [facility] Address [address] [place] [address] Phone Care Team Providers Care Research Program Assistant Name Role Phone Josse Herndon MD Primary Care Provider [phone] Encounter Details Date Type Department Care Team (Late st Contact Info) Description 11/09/2022 Procedure Pass [facility], Ct Scan - [address] [address] Social History Tobacco Use Types Packs/Day Years [...] on filedocumented in this encounter Care Teams Research Program Assistant Relationship Specialty Start Date End Date Josse Herndon MD [address] [place] [address] PCP - General 05/24/17 documented as of this encounter Additional Source Comments The information contained in this document represents components of the legal health record. It is not the complete legal health record.[facility]
--- OUTSIDE RECORDS SUMMARY | 2025-07-22 07:47 | XMS_ITS | Encounter Summary ---
Author Organization [facility] Address [address] [place] [address] Phone Care Team Providers Care Bowling Alley Operator Name Role Phone Josse Herndon MD Primary Care Provider [phone] Encounter Details Date Type Department Care Team (Late st Contact Info) Description 12/22/2021 Procedure Pass [facility], Ct Scan - [address] [address] Social History Tobacco Use Types Packs/Day Years [...] 3:00 PM EDT Dayami Barrett, RN * [place] Suicide Severity Rating Scale (Screener/Recent Self-Report) Question [...] on filedocumented in this encounter Care Teams Bowling Alley Operator Relationship Specialty Start Date End Date Josse Herndon MD [address] [facility] [address] [place] [phone] PCP - General 05/24/17 documented as of this encounter Additional Source Comments The information contained in this document represents components of the legal health record. It is not the complete legal health record.[facility]
--- OUTSIDE RECORDS SUMMARY | 2025-07-22 07:47 | XMS_ITS | Patient Health Record ---
Author Organization [facility] Address [address] [place] [address] Care Team Providers Care Artillery Meteorological Man Name Role Phone Josse Herndon MD Primary Care Provider Umer Isbell Jr Unavailable [phone] Allergies No Known Allergies Reason For Referral No Information Medications Medication SIG (Take, Route, Frequency, Duration) Notes Start Date End Date Status Fenofibrate 160 MG Tablet TAKE 1 TABLET BY MOUTH EVERY DAY WITH FOOD Oral; Duration: 30 Active metFORMIN HCl 500 MG Tablet 1 tablet with a meal Orally Once a day Active Eliquis 5 MG Tablet 1 tablet Orally Twic e a day; Duration: 30 day(s) Active traZODone HCl 50 MG Tablet TAKE 1 TABLET BY MOUTH AT BEDTIME NEEDED Oral; Duration: 30 Not-Taking/PRN Simvastatin 40 MG Tablet TAKE 1 TABLET IN THE EVENING ONCE A DAY ORALLY Orally Once a day Active Tylenol 500 mg 4 tablet as needed Orally every 6 hrs Active MiraLax (colon prep) 17 GM/SCOOP Powder mixed with Gatorade or Crystal Light Orally begin at 5:00 p.m. the day before the procedure; Duration: 1 day 09/17/2023 Active Lisinopril 2.5 MG Tablet TAKE 1 TABLET BY MOUTH EVERY DAY Oral; Duration: 90 Active Vitamin D-3 Active Immunizations Vaccine Route Administration Date Status Comme nts Influenza Unknown 05/06/2019 Administered Influenza Unknown 06/26/2023 Administered Social History Social History Additional Details Category Social Info Options Details Miscellaneous: Marital status: Occupation: retired Problems Problem Type SNOMED Code ICD Code Onset Dates Problem Status W/U Status Risk Notes Problem Colon cancer screening (901995516) Colon cancer screening (Z12.11) Active confirmed Problem Long-term current use of anticoagulant (575103449) long term care administrator (current) use of anticoagulants (Z79.01) Active confirmed Problem Family History of Cancer of Colon (Situation) (975528264) Family history of colon cancer (Z80.0) Active confirmed Plan Of Treatment Future Test Test Name Order Date COLONOSCOPY 03/04/2014 COLONOSCOPY 03/10/2020 COLONOSCOPY 09/17/2023 Insurance Providers Payer Name Payer Address Payer Phone Subscriber Number Group Number Insured Name Patient Relationship to Insured Coverage Start Date Coverage End Date MEDICARE OF [place] [address] [place] [address] [id number] ZAID GARCIA Self - patient is the insured [facility] [address] [place], [place] [id number] [phone] [id number] ZAID GARCIA Self - patient is the insured Medical (General) History Medical History History ICD Code Anxiety/depression/panic attacks DVT/PE with pulmonary infarction Hyperlipidemia Diabetes type 2 Surgical History Surgery Date(Month/Year) section Hospitalization History Reason Date(Month/Year) Lab - blood clots 02/2020 ultrasound on left leg - Large Cyst 02/04 020
--- OUTSIDE RECORDS SUMMARY | 2025-07-22 07:47 | XMS_ITS | Clinical Summary ---
Author Organization [facility] Address [address] [place] [address] Phone Care Team Providers Care Stair Builder Name Role Phone Josse Herndon MD Primary Care Provider [phone] Allergies No known active allergies Medications vilazodone [...] finding of cerebral vein thrombosis would not ion exchange operator (already on anticoagulation) -- Encourage mobilization with [...] IV fluid resuscitation, and monitor renal function. [place] level is still pending. Bilateral pulmonary embolism 06/18/2017 Deep venous thrombosis of lower extremity 2016 History of depression 06/18/2017 Assessment & Plan (02/08/2022 8:10 PM EDT): Patient has significant history of bipolar with depression for over [address] Cotto in [place].- - her expressed concern she may need [...] Additional history exists COVID-19 VACCINE ( - season) 2025 10/15/2020, 09/17/2020 PNEUMOCOCCAL VACCINES (50+ [...] Date/Time Associated Diagnosis Comments BASIC METABOLIC PANEL (BMP) Routine 11/10/2022 6:23 AM EDT from Last 3 Months or Most Recently Relevant to Health Maintenance Results * (ABNORMAL) Basic metabolic panel (11/10/2022 6:23 AM EDT) SODIUM 143 133 - 146 mmol/L [facility] CHLORIDE 110(H) 96 - 108 mmol/L [facility] POTASSIUM 4.5 3.3 - 5.1 mmol/L [facility] CO2 23 21 - 35 mmol/L [facility] BUN 13 6 - 19 mg/dL [facility] CREATININE 0.90 0.5 - 1.5 mg/dL [facility] GLUCOSE 142(H) 70 - 99 mg/dL [facility] CALCIUM 9.6 8.4 - 10.3 mg/dL [facility] EGFR 68 >59 mL/min/1.7 3m2 [facility] Comment:Estimated glomerular filtration rate calculated using the CKD-EPI refit equation. ANION GAP 15 10 - 20 mmol/L [facility] Blood 11/10/2022 6:23 AM EDT 11/10/2022 6:28 AM EDT us Ceci Langston MD LAB BLOOD BKR ORDERABLES Fi nal Result [facility] [address] [place] [address] from Last 3 Months or Most Recently Relevant to Health Maintenance Insurance [facility] MEDICARE PART A & B MEDICARE PART A & [place] [address] [place] [address] MEDICARE PART A & B MEDICARE PART A & B [facility] MEDICARE PART A & [place] [address] [place] [address] MEDICARE PART A & B MEDICARE PART A & [place] [address] [place] [address] MEDICARE PART A & B MEDICARE PART A & B Advance Directives For more information, please contact: [phone] (9AM - 5PM [place], Sunday-Sunday) * Full [...] 4:24 PM 06/20/2017 8:58 PM Care Teams Stair Builder Relationship Specialty Start Date End Date Josse Herndon MD [address] [place] [phone] PCP - General 05/24/17 Additional Source Comments The information contained in this document represents components of the legal health record. It is not the complete legal health record.[facility]
--- OUTSIDE RECORDS SUMMARY | 2025-07-22 07:47 | XMS_ITS | Encounter Summary ---
Author Organization [facility] Address [address] [place] [address] Phone Care Team Providers Care Nca Certified Concierge Name Role Phone Josse Herndon MD Primary Care Provider [phone] Encounter Details Date Type Department Care Team (Late st Contact Info) Description 02/07/2022 Procedure Pass [facility], [address] [address] Social History Tobacco Use Types Packs/Day Years [...] 4:00 PM EDT Alessia Hubbard, RN * [place] Suicide Severity Rating Scale (Screener/Recent Self-Report) Question [...] on filedocumented in this encounter Care Teams Nca Certified Concierge Relationship Specialty Start Date End Date Josse Herndon MD [address] [place] [address] PCP - General 05/24/17 documented as of this encounter Additional Source Comments The information contained in this document represents components of the legal health record. It is not the complete legal health record.[facility]
--- OUTSIDE RECORDS SUMMARY | 2025-07-22 07:47 | XMS_ITS | Encounter Summary ---
Author Organization [facility] Address [address] [place] [address] Phone Care Team Providers Care Sander Operator Name Role Phone Josse Herndon MD Primary Care Provider [phone] Encounter Details Date Type Department Care Team (Late st Contact Info) Description 02/06/2022 Procedure Pass [facility], Ct Scan - [address] [address] Social History Tobacco Use Types Packs/Day Years [...] 4:00 PM [place] Alessia Hubbard, MUKESH * [place] Suicide Severity Rating Scale (Screener/Recent Self-Report) Question [...] on filedocumented in this encounter Care Teams Sander Operator Relationship Specialty Start Date End Date Josse Herndon MD [address] [facility] [address] [place] [phone] PCP - General 05/24/17 documented as of this encounter Additional Source Comments The information contained in this document represents components of the legal health record. It is not the complete legal health record.[facility]
--- OUTSIDE RECORDS SUMMARY | 2025-07-22 07:47 | XMS_ITS | Encounter Summary ---
Author Organization [facility] Address [address] [address] [place] [address] Phone Care Team Providers Care Leases And Land Supervisor Name Role Phone Josse Herndon MD Primary Care Provider [phone] Encounter Details Date Type Department Care Team (Late st Contact Info) Description 11/02/2022 Procedure Pass [facility], Ct Scan - [address] [address] Social History Tobacco Use Types Packs/Day Years [...] on filedocumented in this encounter Care Teams Leases And Land Supervisor Relationship Specialty Start Date End Date Josse Herndon MD [address] [place] [address] PCP - General 05/24/17 documented as of this encounter Additional Source Comments The information contained in this document represents components of the legal health record. It is not the complete legal health record.[facility]
--- OUTSIDE RECORDS SUMMARY | 2025-07-22 07:47 | XMS_ITS | Encounter Summary ---
Author Organization [facility] Address [address] [place] [address] Phone Care Team Providers Care Electro Mechanical Assembler Name Role Phone Josse Herndon MD Primary Care Provider [phone] Encounter Details Date Type Department Care Team (Late st Contact Info) Description 02/06/2022 Procedure Pass [facility], Ct Scan - [address] [address] Social History Tobacco Use Types Packs/Day Years [...] 4:00 PM W[place]ET Alessia Hubbard, MUKESH * [place] Suicide Severity Rating Scale (Screener/Recent Self-Report) Question [...] on filedocumented in this encounter Care Teams Electro Mechanical Assembler Relationship Specialty Start Date End Date Josse Herndon MD [address] [facility] [address] [place] [phone] PCP - General 05/24/17 documented as of this encounter Additional Source Comments The information contained in this document represents components of the legal health record. It is not the complete legal health record.[facility]
--- OUTSIDE RECORDS SUMMARY | 2025-07-22 07:47 | XMS_ITS | Encounter Summary ---
Author Organization [facility] Address [address] [place] [address] Phone Care Team Providers Care Marine Mammal Trainer Name Role Phone Josse Herndon MD Primary Care Provider [phone] Reason for Referral * Consultation (Routine) - Closed Specialty Diagnoses / Procedures Referred By Carloz t Referred To Contact Diagnoses Pulmonary embolism and infarction Josse Herndon MD Phone: tel: fax: [address] [address] Phone: tel: Referral ID Status Reason Start Date Expiration Date Visits Re quested Visits Authorized [id number] Closed 09/29/2020 09/29/2021 1 1 Encounter Details Date Type Department Care Team (Late st Contact Info) Description 09/29/2020 Transcribe Orders Virtual Department [address] [place] [address] Josse Herndon MD [address] [place] [phone] Pulmonary embolism and infarction [I26.99] (Primary [...] Diagnoses Order Schedule Ambulatory referral to [facility] Anticoagulation Clinic Outpatient Referral Routine Pulmonary embolism and infarction [I26.99] Ordered: 09/29/2020 documented as of this encounter Visit Diagnoses Diagnosis Pulmonary embolism and infarction [I26.99]- Primary Other pulmonary embolism and infarction documented in this encounter Care Teams Marine Mammal Trainer Relationship Specialty Start Date End Date Po, Josse Roman MD [address] [place] [phone] PCP - General 05/24/17 documented as of this encounter Additional Source Comments The information contained in this document represents components of the legal health record. It is not the complete legal health record.[facility]
--- OUTSIDE RECORDS SUMMARY | 2025-07-22 07:47 | XMS_ITS | Encounter Summary ---
Author Organization [facility] Address [address] [facility] [facility] [address] [place] [address] Phone Care Team Providers Care Industrial Health And Safety Professor Name Role Phone Josse Herndon MD Primary Care Provider [phone] Encounter Details Date Type Department Care Team (Late st Contact Info) Description 11/09/2022 Procedure Pass [facility], Ct Scan - [address] [address] Social History Tobacco Use Types Packs/Day Years [...] on filedocumented in this encounter Care Teams Industrial Health And Safety Professor Relationship Specialty Start Date End Date Josse Herndon MD [address] [place] [phone] PCP - General 05/24/17 documented as of this encounter Additional Source Comments The information contained in this document represents components of the legal health record. It is not the complete legal health record.[facility]
--- OUTSIDE RECORDS SUMMARY | 2025-07-22 07:47 | XMS_ITS | Encounter Summary ---
Author Organization [facility] Address [address] [facility] [address] [place] [address] Phone Care Team Providers Care Addictions Counselor Assistant Name Role Phone Josse Herndon MD Primary Care Provider [phone] Encounter Details Date Type Department Care Team (Late st Contact Info) Description 05/01/2018 Transcribe Orders [facility] [address] [place] [address] Josse Herndon MD [address] [place] [phone] Social History Tobacco Use Types Packs/Day [...] on filedocumented in this encounter Care Teams Addictions Counselor Assistant Relationship Specialty Start Date End Date Josse Herndon MD [address] [place] [phone] PCP - General 05/24/17 documented as of this encounter Additional Source Comments The information contained in this document represents components of the legal health record. It is not the complete legal health record.[facility]
--- OUTSIDE RECORDS SUMMARY | 2025-07-22 07:47 | XMS_ITS | Encounter Summary ---
Author Organization [facility] Address [address] [facility] [address] [facility] [address] [place] [address] Phone Care Team Providers Care Trauma Coordinator Name Role Phone Josse Herndon MD Primary Care Provider [phone] Reason for Referral * Consultation (Routine) - Closed Specialty Diagnoses / Procedures Referred By Contlore t Referred To Contact Diagnoses Deep vein thrombosis (DVT) of lower extremity, unspecified chronicity, unspecified laterality, unspecified vein Josse Herndon MD Phone: tel: fax: [facility] [address] [place] [address] Phone: tel: Referral ID Status Reason Start Date Expiration Date Visits Re quested Visits Authorized [id number] Closed 07/27/2020 07/27/2021 1 1 Encounter Details Date Type Department Care Team (Late st Contact Info) Description 07/27/2020 Transcribe Orders Virtual Department [address] [place] [address] Josse Herndon MD [address] [place] [phone] Deep vein thrombosis (DVT) of lower [...] Diagnoses Order Schedule Ambulatory referral to [facility] Anticoagulation Clinic Outpatient Referral Routine Deep vein thrombosis (DVT) of lower extremity, unspecified chronicity, unspecified laterality, unspecified vein Ordered: 07/27/2020 documented as of this encounter Visit Diagnoses Diagnosis Deep vein thrombosis (DVT) of lower extremity, unspecified chronicity, unspecified laterality, unspecified vein- Primary documented in this encounter Care Teams Trauma Coordinator Relationship Specialty Start Date End Date Josse Herndon MD [address] [place] [address] [address] [place] [address] PCP - General 05/24/17 documented as of this encounter Additional Source Comments The information contained in this document represents components of the legal health record. It is not the complete legal health record.[facility]
--- OUTSIDE RECORDS SUMMARY | 2025-07-22 07:47 | XMS_ITS | Encounter Summary ---
Author Organization [facility] Address [address] [place] [address] Phone Care Team Providers Care Network Consultant Name Role Phone Josse Herndon MD Primary Care Provider Encounter Details Date Type Department Care Team (Late st Contact Info) Description 06/18/2017 Procedure Pass [facility], Ct Scan - [address] [address] Social History Tobacco Use Types Packs/Day Years [...] on filedocumented in this encounter Care Teams Network Consultant Relationship Specialty Start Date End Date Josse Herndon MD [address] [place] [phone] PCP - General 05/24/17 documented as of this encounter Additional Source Comments The information contained in this document represents components of the legal health record. It is not the complete legal health record.[facility]
--- OUTSIDE RECORDS SUMMARY | 2025-07-22 07:47 | XMS_ITS | Encounter Summary ---
Author Organization [facility] Address [address] [facility] [address] [place] [address] Phone Care Team Providers Care City Alderman Name Role Phone Josse Herndon MD Primary Care Provider [phone] Encounter Details Date Type Department Care Team (Late st Contact Info) Description 11/09/2022 Procedure Pass [facility], [address] [address] Social History Tobacco Use Types Packs/Day Years [...] on filedocumented in this encounter Care Teams City Alderman Relationship Specialty Start Date End Date Josse Herndon MD [address] [place] [address] [address] [place] [phone] PCP - General 05/24/17 documented as of this encounter Additional Source Comments The information contained in this document represents components of the legal health record. It is not the complete legal health record.[facility]
--- OUTSIDE RECORDS SUMMARY | 2025-07-22 07:47 | XMS_ITS | Encounter Summary ---
Author Organization [facility] Address [address] [place] [phone] Phone Care Team Providers Care Coarse Wire Drawer Name Role Phone Josse Herndon MD Primary Care Provider [phone] Encounter Details Date Type Department Care Team (Latest Contact Info) Description 07/17/2017 Transcribe Orders [facility] Main [address] [place] [address] Mora James E, DO [address] [place] [address] [email or web address] Thrombosis of left peroneal vein (Primary Dx) [...] of left peroneal vein COMPREHENSIVE METABOLIC PANEL (CMP) Routine 07/17/2017 10:41 AM EST Thrombosis of left peroneal vein CBC AND DIFFERENTIAL Routine 07/17/2017 10:41 AM EST Thrombosis of left peroneal vein documented in this encounter Results * Protein S activity (07/17/2017 10:41 AM EST) Protein S Activity, P 80 65 - 160 % [facility] DPT OF LAB MED AND PAT+ [...] This test has been modified from the inorganic chemistry teacher's instructions. Its performance characteristics were determined by [facility] in a manner consistent with CLIA requirements. This test has not been cleared or approved by the U.S. Food and Drug Administration. Blood 07/17/2017 10:4 1 AM EST 07/17/2017 10:46 AM EST us Mora James DO LAB BLOOD BKR ORDERABLES F inal Result [facility] DPT OF LAB MED AND PAT+ [address] [place] [address] * Protein C activity (07/17/2017 10:41 AM EST) PROTEIN C ACTIVITY, P 71 70 - 150 % [facility] DPT OF LAB MED AND PAT+ Comment: (NOTE) ADDITIONAL INFORMATION This test has been modified from the inorganic chemistry teacher's instructions. Its performance characteristics were determined by [facility] in a manner consistent with CLIA requirements. This test has not been cleared or approved by the U.S. Food and Drug Administration. Blood 07/17/2017 10:4 1 AM EST 07/17/2017 10:46 AM EST us Mora James DO LAB BLOOD BKR ORDERABLES F inal Result [facility] DPT OF LAB MED AND PAT+ [address] [place] [address] * (ABNORMAL) Comprehensive metabolic panel (07/17/2017 10:41 AM EST) SODIUM 138 133 - 146 mmol/L [facility] POTASSIUM 4.2 3.3 - 5.1 mmol/L [facility] CHLORIDE 101 96 - 108 mmol/L [facility] CO2 28 21 - 35 mmol/L [facility] BUN 16 6 - 19 mg/dL [facility] CREATININE 0.90 0.5 - 1.5 mg/dL [facility] GLUCOSE 144(H) 70 - 99 mg/dL [facility] ALBUMIN 3.8(L) 3.9 - 4.8 g/dL [facility] TOTAL PROTEIN 8.1(H) 6.5 - 8.0 g/dL [facility] CALCIUM 9.4 8.4 - 10.3 mg/dL [facility] ALKALINE PHOSPHATASE 69 39 - 117 U/L [facility] TOTAL BILIRUBIN 0.2 0 - 1.2 mg/dL [facility] AST 14 0 - 37 U/L [facility] ALT 16 0 - 40 U/L [facility] GLOBULIN 4.3 1 - 4.8 g/dL [facility] EGFR >60 60 - 1000 mL/min/1.7 3m2 [facility] Comment:Abnormal if <60. If patient is -Boliv[place], multiply the result by 1.21. ANION GAP 13 10 - 20 mmol/L [facility] Blood 07/17/2017 10:4 1 AM EST 07/17/2017 10:47 AM EST us Mora Marques Erika DO LAB BLOOD BKR ORDERABLES F inal Result [facility] [address] [place] [address] * CBC and differential (07/17/2017 10:41 AM EST) WBC 7.46 3.40 - 11.20 K/uL [facility] RBC 4.13 3.80 - 4.80 M/uL [facility] HGB 12.6 12.0 - 15.0 g/dL [facility] HCT 39.4 36.0 - 46.0 % [facility] PLT 282 130 - 400 K/uL [facility] MCV 95.4 79.0 - 98.0 fL [facility] MCH 30.5 27.0 - 34.8 pg [facility] MCHC 32.0 31.5 - 36.0 g/dL [facility] RDW 14.1 10.8 - 14.6 % [facility] MPV 11.2 9.4 - 12.4 fl [facility] NRBC 0.00 /100 WBCs [facility] ABSOLUTE NRBC 0.00 K/uL [facility] DIFF METHOD Auto [facility] NEUTS 61.6 45.30 - 77.70 % [facility] LYMPHS 28.6 12.30 - 39.70 % [facility] MONOS 5.5 4.10 - 12.80 % [facility] EOS 3.1 0 - 7.2 % [facility] BASOS 0.5 0 - 2.80 % [facility] Granulocytes, immature (%) 0.7 0.0 - 0.9 % [facility] ABSOLUTE NEUTS 4.60 1.40 - 7.70 K/uL [facility] ABSOLUTE LYMPHS 2.13 0.60 - 3.20 K/uL [facility] ABSOLUTE MONOS 0.41 0.11 - 0.59 K/uL [facility] ABSOLUTE EOS 0.23 0.01 - 0.50 K/uL [facility] ABSOLUTE BASOS 0.04 0.00 - 0.08 K/uL [facility] Granulocytes, immature 0.05 0.00 - 0.05 K/uL [facility] Blood 07/17/2017 10:4 1 AM EST 07/17/2017 10:47 AM EST us Mora James DO LAB BLOOD BKR ORDERABLES F inal Result [facility] [address] [place] [address] documented in this encounter Visit Diagnoses Diagnosis Thrombosis of left peroneal vein- Primary documented in this encounter Care Teams Coarse Wire Drawer Relationship Specialty Start Date End Date Po, Josse Roman MD [address] [place] [id number] PCP - General 05/24/17 documented as of this encounter Additional Source Comments The information contained in this document represents components of the legal health record. It is not the complete legal health record.[facility]
--- OUTSIDE RECORDS SUMMARY | 2025-07-22 07:47 | XMS_ITS | Encounter Summary ---
Author Organization [facility] Address [address] [place] [address] Phone Care Team Providers Care Electrolytic Etcher Name Role Phone Josse Herndon MD Primary Care Provider [phone] Reason for Referral * Consultation (Routine) - Closed Specialty Diagnoses / Procedures Referred By Contlore t Referred To Contact Diagnoses Pulmonary infarction Deep vein thrombosis (DVT) of lower extremity, unspecified chronicity, unspecified laterality, unspecified vein Josse Herndon MD Phone: tel: fax: [facility] [address] [place] [address] Phone: tel: Referral ID Status Reason Start Date Expiration Date Visits Re quested Visits Authorized [id number] Closed 06/13/2018 06/13/2019 1 1 Encounter Details Date Type Department Care Team (Late st Contact Info) Description 06/13/2018 Transcribe Orders Virtual Department [address] [place] [address] Josse Herndon MD [address] [place] [phone] Pulmonary infarction (Primary Dx); Deep vein [...] Associated Diagnoses Order Schedule Ambulatory referral to [facility] Anticoagulation Clinic Outpatient Referral Routine Pulmonary infarction Deep vein thrombosis (DVT) of lower extremity, unspecified chronicity, unspecified laterality, unspecified vein Ordered: 06/13/2018 documented as of this encounter Visit Diagnoses Diagnosis Pulmonary infarction- Primary Other pulmonary embolism and infarction Deep vein thrombosis (DVT) of lower extremity, unspecified chronicity, unspecified laterality, unspecified vein documented in this encounter Care Teams Electrolytic Etcher Relationship Specialty Start Date End Date Josse Herndon MD [address] [place] [address] [place] [phone] PCP - General 05/24/17 documented as of this encounter Additional Source Comments The information contained in this document represents components of the legal health record. It is not the complete legal health record.[facility]
--- OUTSIDE RECORDS SUMMARY | 2025-07-22 07:48 | XMS_ITS | Encounter Summary ---
Author Organization [facility] Address [address] [place] [phone] Phone Care Team Providers Care Cytogenetic Technologist Name Role Phone Josse Herndon MD Primary Care Provider [phone] Encounter Details Date Type Department Care Team (Late st Contact Info) Description 03/14/2022 Procedure Pass [facility], Ct Scan - [address] [address] Social History Tobacco Use Types Packs/Day Years [...] 03/14/2022 4:12 AM Leo Bhandari, MUKESH * Mora Suicide Severity Rating Scale (Screener/Recent Self-Report) Question [...] on filedocumented in this encounter Care Teams Cytogenetic Technologist Relationship Specialty Start Date End Date Josse Herndon MD [address] [facility] [address] [place] [phone] PCP - General 05/24/17 documented as of this encounter Additional Source Comments The information contained in this document represents components of the legal health record. It is not the complete legal health record.[facility]
--- NOTE | 2025-07-22 08:04 | CA_ITS ---
Transthoracic Echocardiogram Patient (Last, First, Middle): Ann Bansal L Gender: Female Date of : 1950 Age: 75 Procedure Date: 07/22/2025 Procedure Type: Transthoracic Echocardiogram Location: OP Height: 160.02 cm Weight: 71.22 kg BSA: 1.74 m2 Heart Rate: bpm BP: 134 / 68 mmHg Sciences Dean: HOLLY Referring MD: Josse Herndon MD Airport Representative: Jesse Phelps MD Symptoms: R06.02 - Shortness of breath Study Quality: Adequate ECG Rhythm: Sinus Conclusions: - 1. Normal LV ejection fraction of 60 65% with grade 1 diastolic dysfunction 2. Normal cardiac valvular Dopplers 3. Upper limits of normal ascending aortic size 4. Normal RV systolic pressure 5. No gross pericardial effusion Findings Left Ventricle Normal left ventricular size, thickness, and systolic function. The visually estimated ejection fraction is between 60-65%. Spectral Doppler is indicative of an impaired relaxation filling pattern. E/E prime ratio is <8, consistent with normal filling pressures. Evidence suggests grade I (mild) diastolic dysfunction. Right Ventricle Normal right ventricular cavity size and systolic function. Atria Both atria are normal in size. There is no evidence of interatrial shunt. Aortic Valve There is a doming trileaflet aortic valve. There is mild calcification of the aortic valve. There is no aortic valve stenosis. There is no aortic valve regurgitation. Mitral Valve Likely normal mitral valve structure and function. There is no mitral valve regurgitation. There is no mitral valve stenosis. Pulmonic Valve The pulmonic valve is likely normal. There is trace pulmonic valve regurgitation. Tricuspid Valve Normal tricuspid valve structure. There is trace tricuspid valve regurgitation. The right ventricular systolic pressure is normal. The right ventricular systolic pressure is 16 mmHg. Normal right atrial pressure. There is no evidence of pulmonary hypertension. Great Vessels All visible segments of the aorta are normal in size. The pulmonary artery was not well visualized. There is no dilatation of the ascending aorta measuring 3.50 cm. Venous The inferior vena cava is normal in size and collapses greater than 50% with inspiration. Pericardium/Pleural There is no evidence of pericardial effusion. Prior Study Comparison No prior study available for comparison. Measurements 2D Linear Measurements IVSd: 0.93 0.6-0.9/0.6-1.0 cm LVIDd: 3.71 3.9-5.3/4.2-5.9 cm LVIDd Index: 2.13 2.4-3.2/2.2-3.1 cm/m2 LVIDs: 2.37 2.0-3.6 cm LVPWd: 1.01 0.7-1.1 cm LA Diam: 3.10 2.7-3.8/3.0-4.0 cm LAIDs Index: 1.78 1.5-2.3 cm/m2 LV Mass: 134.77 67-162/88-224 g LV Mass Index: 77.45 43-95/49-115 g/m2 LVOT Diam: 2.00 3.0+(-)1.3 cm 2D Systolic Function EF 4C: 60.00 >55% EF 2C: 63.90 >55% EF BiP: 62.80 >55% Mitral Valve MV Pk E: 0.72 MV PK A: 0.96 MV Decel Time: 238.00 E/A: 0.80 E'Lateral: 8.38 E'Medial: 6.96 E/E' Med: 10.40 E/E' Lat: 8.60 PHT: 70.00 MVA PHT: 3.14 Decel [place]: 3.05 Aortic Valve AoV Pk Jv: 1.51 AoV Mn Jv: 1.08 AoV VTI: 0.34 AoV Pk Grad: 9.00 Aov Mn Grad: 5.00 TATIANA Cont.VTI: 1.93 LVOT LVOT Pk Jv: 0.99 LVOT Mn Jv: 0.67 LVOT VTI: 0.21 LVOT Pk Grad: 4.00 LVOT Mn Grad: 2.00 LVOT Diam: 2.00 LVOT Area: 3.14 Diastolic Function MV Pk E: 0.72 MV Pk A: 0.96 E/A: 0.80 E'Medial: 6.96 E/E' Med: 10.40 E' Laterial: 8.38 E/E' Lat: 8.60 Right Ventricle TAPSE (mm): 21.10 TVS' Jv: 10.20 Tricuspid Valve TR Pk Jv: 1.82 TR Pk Grad: 13.00 RA Press: 3.00 RVSP: 16.00 Great Vessels Aorta Sinus of Valsalva: 3.19 2.0-3.[address] [place]: 2.97 1.7-3.4 cm Ao Asc: 3.50 2.1-3.4 cm Updated in Other Vendor System with Status of Final Jesse Phelps MD electronically signed on 07/22/2025 12:44:32 PM with status of Final
[2025-07-22 10:56] LABS: MANUAL DIFF FLAG NO
[2025-07-22 11:21] LABS: Hematocrit 39.9 % (37.0-47.0); Hemoglobin 12.6 g/dl (12.0-16.0); Imm Gran Abs Auto 0.05 X10*3/uL (0.00-0.03); Imm Gran Pct Auto 0.7 % (0.0-0.4); Lymphocytes Absolute Auto 1.9 X10*3/uL (1.2-4.9); Mean Corpuscular HGB Conc 31.6 g/dl (31.0-35.0); Mean Corpuscular Hemoglobin 29.7 pg (27.0-33.0); Mean Corpuscular Volume 94.1 fL (80.0-98.0); NRBC Abs Auto 0.000 X10*3/uL (0.0-0.012); NRBC Pct Auto 0.0 /100WBC (0.0-0.2); Platelet Count 260 X10*3/uL (160-400); Red Blood Count 4.24 X10*6/uL (4.20-5.50); White Blood Count 6.8 X10*3/uL (4.8-10.8)
[2025-07-22 11:54] LABS: Alanine Aminotransferase 10 U/L (0-31); Albumin Level 4.4 g/dL (3.5-5.0); Alkaline Phosphatase 57 U/L (39-117); Anion Gap 10 (12-20); Aspartate Amino Transferase 19 U/L (5-31); Blood Urea Nitrogen 22 mg/dL (9-16); Calcium 9.7 mg/dL (8.4-10.2); Carbon Dioxide 24 mmol/L (22-29); Chloride 108 mmol/L (96-108); Estimated Glomerular Filt Rate 55; Potassium 4.4 mmol/L (3.3-5.1); Sodium 138 mmol/L (135-145); Total Protein 7.8 g/dL (6.5-8.0)
== END ==
LOC: HO.CARD 07:45
PROVIDERS: PCP Internal Medicine; Visit Provider Internal Medicine
DX: E78.00 Pure hypercholesterolemia, unspecified (principal); R06.02 Shortness of breath; E11.65 Type 2 diabetes mellitus with hyperglycemia; M85.80 Other specified disorders of bone density and structure, unspecified site; E66.3 Overweight; Z68.28 Body mass index [BMI] 28.0-28.9, adult; F31.32 Bipolar disorder, current episode depressed, moderate; R03.0 Elevated blood-pressure reading, without diagnosis of hypertension; Z71.3 Dietary counseling and surveillance; Z79.899 Other long term (current) drug therapy; Z87.891 Personal history of nicotine dependence
CPT/HCPCS: 36415; 80053; 83036; 85025; 93306; 99212

== ENCOUNTER → 2025-07-22 08:04 | Outpatient (BNV) | payer MEDICARE, BC, SELFPAY | PROVIDERS: PCP Internal Medicine; Visit Provider Internal Medicine Cardiovascular Disease | DX: R06.02 Shortness of breath (principal) | CPT/HCPCS: 93306 ==

== ENCOUNTER 2025-07-22 09:32 | Outpatient (AMB) | payer MEDICARE, BC, SELFPAY ==
--- NOTE | 2025-07-22 09:34 | A.OFFPC_ITS ---
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 Required: No Accompanied by: Self / Same As Patient Allergies levomilnacipran (Fetzima) Allergy (Unknown, Verified 07/22/25 09:35) Unknown sertraline (Zoloft) Allergy (Unknown, Verified 07/22/25 09:35) Unknown vortioxetine (From Brintellix) Allergy (Unknown, Verified 07/22/25 09:35) Unknown Medication List - Last Reconciled 07/22/25 by Josse Herndon MD apixaban (Eliquis) 5 mg PO BID cholecalciferol (vitamin D3) 25 mcg PO DAILY cyanocobalamin (vitamin B-12) 1,000 mcg PO DAILY fenofibrate 160 mg PO DAILY 90 days lisinopril 2.5 mg PO DAILY simvastatin 40 mg PO BEDTIME Tobacco use date assessed: 05/07/25 Fall risk assessment: No Falls in past year Last assessed Fall Risk: 07/22/25 Dental Screening Dental Screen Date: 05/07/25 HPI sob on exertion, DM HPI Details stress test done negative, now doing better with the sob, cxr is normal HPI Comments History of Present Illness Details History of Present Illness The patient is a 75 year old female presenting for follow-up and management of multiple chronic conditions. She is overweight and noted a recent 3-pound weight gain. She has a history of a pulmonary embolism in 2017 and is on Eliquis 5 mg twice a day for anticoagulation. At her last visit, she reported shortness of breath, which prompted a workup. A recent chest X-ray was clean, and a stress test was negative for ischemia, though it was stopped early at her request due to modest shortness of breath. She had an echocardiogram this morning with results pending and has a lung function test scheduled for August 11. Her dyspnea has reportedly improved, and she is able to climb stairs. Her medical history is also significant for hypercholesterolemia, managed with fenofibrate 160 mg and simvastatin 40 mg daily, with a recent LDL of 95. She has diet-controlled diabetes mellitus with a hemoglobin A1c of 5.9 in March. Other past medical history includes recurrent bipolar disorder, generalized anxiety disorder, and a history of lithium toxicity. She has osteopenia, diagnosed via her last bone density scan in March 2023. Her last blood work was in March and showed a normal blood count without anemia , normal electrolytes, and normal renal function with a creatinine of 1.05. Liver function tests, thyroid, and folic acid were also normal. Her health screenings include a colon test in October 2023 and a mammogram in August 2024. Health Maintenance - Bone Density Screening: Last bone dens ity scan in March 2023 showed osteopenia. - A new request will be ordered as monit oring is recommended every couple of years. - Colon Cancer Screening: Last colon debbie t was in October 2023. - Breast Cancer Screening: Last mammogra m was in August 2024. - Vaccinations: Tetanus, pneumonia, and flu shots are up to date. - The shingles vaccine was discussed and offered. - Lab Monitoring: Needs blood work twice a year for monitoring while on Eliquis. - A request for labs, including renal fu nction and HbA1c, was provided. - Lifestyle: Advised to continue diet an d exercise, stay well-hydrated, and reduce coffee intake to manage blood pressure. - Mental Health: Advised to continue wit h counseling and therapy. Social History - Substance Use: Reports drinking three cups of [id number] coffee today, which she acknowledges can increase blood pressure. - Exercise: Reports she practices climbi ng up and down stairs. Results - Laboratory (from March): Complete blo od count was normal with no anemia. - Electrolytes and renal function were n ormal, with a creatinine of 1.05. - Hemoglobin A1c was 5.9%. - Liver function tests were good. - LDL cholesterol was 95. - Thyroid function and folic acid levels were normal. - Imaging: Chest X-ray was noted as bette n. - An echocardiogram was performed today, results are pending. - Diagnostics: Cardiac stress test was n egative for ischemia. [facility] Medical History Breast cancer screening by mammogram Colon cancer screening Obesity (BMI 30-39.9) Age-related osteoporosis without current pathological fracture Cholelithiasis Type 2 diabetes mellitus with hyperglycemia Hypercholesterolemia Bipolar disorder History of pulmonary embolism Surgical History Hx of colonoscopy History of section Family History Father Lung cancer Mother Chronic mental illness Dementia Social History Household Members: Spouse Housing: House Are you a primary career representative to a significant other at home: No Do you presently have visiting nurse or other home services: No Alcohol intake: current Alcohol intake frequency: holidays/special occasions only Comment: once Q 6 months 1 glass Patient Tobacco Use Status: Former Tobacco user Tobacco use type: Cigarette Years Smoked: stopped 30 years old e-Cigarette/Vaping Use: Never Used Second Hand Smoke Exposure: No service: No Current occupational status: retired Current occupational exposures/hazards: No Cognitive needs: No Hearing needs: No Vision needs: Yes Questionnaire Thrive Questionnaire Date Thrive assessed: 03/19/25 I am a: Patient What is your living situation today?: I have a steady place to live Within the past 12 months, did the food you bought not last and you didn't have the money to get more?: I choose not to answer this question Within the past 12 months, did you worry whether your food would run out before you got money to buy more?: I choose not to answer this question Do you have trouble paying for medicines?: I choose not to answer this question Do you have trouble getting transportation to medical appointments?: No Do you have trouble paying your heating and electricity bill?: No Do you have trouble taking care of your child, family member or friend?: No Do you have trouble with day-to-day activities such as bathing, preparing meals, shopping, managing finances, etc.?: No Are you currently unemployed and looking for a job?: I choose not to answer this question Are you interested in more education?: I choose not to answer this question Please select the resources that you would like help with: None Currently or been in a relationship where the following occur: No concerns reported THRIVE Score: 0 TRAE-7 AMB Questionnaire TRAE-7 Date TRAE - 7 assessed: 03/26/25 Source: Developed by Drs. Tu Hdz, Ruth Wolf, Connor Bennett and colleagues, with an educational nighat from [employer]. Review of Systems Narrative Review of Systems - Constitutional: Denies pain. - Respiratory: Reports her previous shortness of breath has improved. - Psychological: Reports feeling nervous. - Genitourinary: Reports nocturia twice nightly but denies other urination problems. Physical exam (Primary Care) Vital Signs: Last Vital Signs Temp 97.6 F 07/22/25 09:35 Pulse 79 07/22/25 09:35 Resp 20 07/22/25 09:35 BP 140/78 H 07/22/25 09:35 Pulse Ox 96 07/22/25 09:35 Oxygen Delivery Method Room Air 07/22/25 09:35 BMI result Body Mass Index 28.5 Tobacco/Smoking Status: Tobacco use Status Tobacco use date assessed 05/07/25 07/22/25 09:42 Patient Tobacco Use Status Former Tobacco user 07/22/25 09:42 Tobacco use type Cigarette 07/22/25 09:42 e-Cigarette/Vaping Use Never Used 07/22/25 09:42 Thrive Assessment: Date of Thrive Assessment Date Thrive assessed 03/19/25 07/22/25 09:42 Currently or been in a relationship where the following occur: No concerns reported Narrative Physical Exam - Vitals: Blood pressure was elevated on two separate checks, with one reading being 140/x mmHg. - Cardiovascular: Regular rate and rhythm noted on auscultation. - Respiratory: Lungs were auscultated. Const General: alert; No acute distress Eyes Conjunctivae: conjunctivae normal Resp Auscultation: clear to auscultation bilaterally Cardio Rate: regular rate Rhythm: regular rhythm GI Inspection: Yes normal to inspection Extrem General: Yes normal to inspection and No edema Coding Level of Care Code Est Pt Level 4 (15445) Diagnoses Hypercholesterolemia E78.00 SOB (shortness of breath) on exertion R06.02 History of pulmonary embolism Z86.711 Type 2 diabetes mellitus with hyperglycemia, without long-term current use of insulin E11.65 Diabetes mellitus watermelon inspector insulin use: without fpc use Osteopenia M85.80 Overweight (BMI 25.0-29.9) E66.3 Bipolar affective disorder, currently depressed, moderate F31.32 Active/Remission status: currently active Current bipolar episode type: depressed Current episode severity: moderate Blood pressure elevated without history of HTN R03.0 Assessment & Plan Assessment & Plan (1) Hypercholesterolemia: Code(s): E78.00 - Pure hypercholesterolemia, unspecified Category: Medical Plan: Avoid fried foods, chicken skin, eggs, butter margarine, pastries and meat. 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 Hahn. Dr. Paula Lanier Code(s): E11.65 - Type 2 diabetes mellitus with hyperglycemia Category: Medical Qualifiers: Diabetes mellitus fpc insulin use: without watermelon inspector use Qualified Code(s): E11.65 - Type 2 diabetes mellitus with hyperglycemia Plan: Decrease the amount of carbohydrate intake, pasta, bread, rice and potatoes are all sugar and that is aside from all the sweet stuff, remember that fruits are good but they are Sweet also. Hemoglobin A1c goal of less than 7.0 diet controlled (5) Osteopenia: Comment: 03/2023 Code(s): M85.80 - Other specified disorders of bone density and structure, unspecified site Category: Medical Plan: Reminded about bone density (6) Overweight (BMI 25.0-29.9): Code(s): E66.3 - Overweight Category: Medical Plan: Diet and exercise (7) Bipolar disorder: Comment: edward Martinez Q 2 weeks Code(s): F31.9 - Bipolar disorder, unspecified Category: Medical Qualifiers: Active/Remission status: currently active Current bipolar episode type: depressed Current episode severity: moderate Qualified Code(s): F31.32 - Bipolar disorder, current episode depressed, moderate Plan: Continue with counseling and therapy (8) Blood pressure elevated without history of HTN: Code(s): R03.0 - Elevated blood-pressure reading, without diagnosis of hypertension Category: Medical Plan: monitor BP at home and record. Plan Plan Patient was informed and verbally consented to the use of an ambient scribe for clinic note documentation during this visit. 1. Dyspnea On Exertion The patient's shortness of breath has reportedly improved. Recent workup includes a clean chest x-ray and a negative cardiac stress test. An echocardiogram was performed today to evaluate heart structure, and results will be followed up. A lung function test is scheduled for August 11 to further evaluate pulmonary causes. 2. Elevated Blood Pressure Reading, Without Diagnosis Of Hypertension The patient's blood pressure was elevated in the office, with a reading of 140/x mmHg. This may be influenced by nervousness and recent caffeine intake. Advised the patient to reduce coffee intake. Will continue to monitor her blood pressure and recommended obtaining a home blood pressure machine. If blood pressure remains elevated, the dose of lisinopril may be increased from its current low dose. 3. History Of Pulmonary Embolism Continue current anticoagulation with Eliquis 5 mg twice daily. Ordered blood work today, including renal function, to ensure safety of anticoagulation therapy. The patient is reminded to have blood work done at least twice a year. 4. Hypercholesterolemia The patient's LDL is at goal at 95. Continue current medication regimen of fenofibrate 160 mg and simvastatin 40 mg daily. 5. Diabetes Mellitus The patient's condition is currently diet-controlled with a recent HbA1c of 5.9, which is below the goal of 7.0. Ordered a repeat HbA1c today for continued monitoring. Counseled on continued diet and exercise. 6. Osteopenia The last bone density scan was in March [address]23. Will place a new order for a repeat bone density scan for routine monitoring, which is typically done every two years. 7. Preventative Care The patient is up to date on tetanus, pneumonia, and flu vaccinations. Discussed and offered the shingles vaccine. Follow-up is scheduled in three months. Discussion Notes I reviewed the patient's recent workup for dyspnea, explaining that her cardiac stress test was negative for ischemia and her chest X-ray was clear. I informed her that the echocardiogram performed today was to further evaluate her heart structure as a precaution, and that we will follow up on the results. I also confirmed she has a scheduled lung function test. We discussed her elevated blood pressure reading in the office. I explained that this could be due to her recent coffee intake and advised her to reduce it. I recommended she monitor her blood pressure and told her we may need to adjust her lisinopril dose if it remains high, as she is on a very low dose. I provided a lab request for monitoring her kidney function due to her use of Eliquis and to check her HbA1c. I also placed a request for a repeat bone d ensity scan and discussed the shingles vaccine with her. We scheduled a follow- up appointment in three months. Patient Instructions - Please go for your blood work as discussed; it can be done today. - Remember your scheduled lung function test on August 11. - Try to reduce your coffee intake, as it may be affecting your blood pressure. - It is a good idea to buy a blood pressure machine to check your readings at home. - Continue taking all your medications as prescribed. - Make sure to drink plenty of water. - An order has been placed for you to get a bone density scan. - You can get the shingles vaccine at the pharmacy if you choose to. - Please follow up in the office in three months. Orders: Orders Comprehensive Met. Panel Today E11.65 - Type 2 diabetes mellitus with hyperglycemia Complete Blood Count Auto Diff Today E11.65 - Type 2 diabetes mellitus with hyperglycemia Hemoglobin A1c Today E11.65 - Type 2 diabetes mellitus with hyperglycemia
[2025-07-22 09:35] VITALS: BP 140/78; PULSE 79; RESP 20; TEMP 36.4; O2SAT 96; BMI 28.5
== END 2025-07-22 10:23 | disposition home or self-care (01) ==
LOC: HO.HMCH 09:33
PROVIDERS: PCP Internal Medicine; Visit Provider Internal Medicine
DX: E11.65 Type 2 diabetes mellitus with hyperglycemia (principal); F31.32 Bipolar disorder, current episode depressed, moderate; E78.00 Pure hypercholesterolemia, unspecified; E66.3 Overweight; Z68.28 Body mass index [BMI] 28.0-28.9, adult; R06.02 Shortness of breath; Z86.711 Personal history of pulmonary embolism; M85.80 Other specified disorders of bone density and structure, unspecified site; R03.0 Elevated blood-pressure reading, without diagnosis of hypertension